=== PATIENT | male | born 1945 | race Caucasian/White ===

== ENCOUNTER 2021-12-06 08:08 | Day surgery (SDC) | payer MEDICARE, SELFPAY ==
--- NOTE | 2021-12-02 09:05 | EKG12_ITS ---
Test Reason : PREOP Blood Pressure : / mmHG Vent. Rate : 155 BPM Atrial Rate : 138 BPM P-R Int : 000 ms QRS Dur : 088 ms QT Int : 322 ms P-R-T Axes : 000 045 -73 degrees QTc Int : 517 ms Atrial fibrillation with premature ventricular or aberrantly conducted complexes Nonspecific T wave abnormality Abnormal ECG Confirmed by LINDA LANDERS, KANWAL ([id number]), fan mail editor LUIS ANTONIO MENENDEZ ([id number]) on 12/02/2021 9:38:42 AM Referred By: Iván Greene Confirmed By:KANWAL MCKEON MD
[2021-12-02 10:12] LABS: Hematocrit 43.8 % (40-54); Mean Corp Hgb Conc 34.2 g/dL (32-36); Mean Corpuscular Hgb 33.6 pg (27.0-32.0); Mean Corpuscular Volume 98.2 fL (80-94); Mean Platelet Vol. 11.4 fl (6.2-12.0); Platelet Count 215 K/mm3 (150-450); RBC Distribution Width CV 13.2 % (11.6-14.6); RBC Distribution Width SD 48.2 fl (35.1-43.9); Red Blood Count 4.46 M/mm3 (4.6-6.2); White Blood Count 6.1 K/mm3 (4.4-11.0)
[2021-12-02 11:05] LABS: International Normalized Ratio 1.3; Prothrombin Time (Protime)PT. 15.6 SECONDS (11.7-14.9)
[2021-12-02 11:06] LABS: Partial Thromboplast Time 34.7 Seconds (24.1-36.2)
[2021-12-02 11:25] LABS: AST(SGOT) 28 U/L (15-37); Alanine Aminotransfer ALT/SGPT 20 U/L (16-61); Albumin, Serum 2.7 g/dL (3.2-5.0); Alkaline Phosphatase 76 U/L (45-117); Bilirubin, Direct 0.27 mg/dL (0.00-0.30); Globulin 3.5 g/dL (2.2-4.2); Protein, Total 6.2 g/dL (6.4-8.2)
[2021-12-02 11:27] LABS: Anion Gap 7 (5-15); BUN 18 mg/dL (7-18); Calcium,Total 8.7 mg/dL (8.5-10.1); Chloride 105 mmol/L (98-107); Creatinine, Serum 0.78 mg/dL (0.70-1.30); EST Glomerular Filtration Rate 103 mL/min (>60); Est Glom Filt Rate - Afr Amer 125 mL/min (>60); Glucose 112 mg/dL (74-106); Potassium 4.1 mmol/L (3.5-5.1); Sodium Level 139 mmol/L (136-145)
[2021-12-06] VITALS (10 sets, daily range): BP systolic 96–127; BP diastolic 57–99; PULSE 51–153; RESP 12–18; TEMP 36.1–36.8; O2SAT 92–99; BMI 27.0
[2021-12-06] MEDS: Lactated Ringers 1,000 ML 15 ML IV (08:25)
--- NOTE | 2021-12-06 08:27 | PCM.HP.BLA ---
History and Physical Date of Admission: 12/06/21 Visit Reasons:?R INGUINAL HERNIA Chief Complaint: Right Inguinal Hernia Facility Manager Histology Required: No Is patient in pain?: No Allergies amiodarone Allergy (Verified 11/01/21 13:08) Dizzinessapixaban [From Eliquis] Allergy (Verified 11/01/21 13:08) flu-like symptomscarvedilol Allergy (Verified 11/01/21 13:08) sluggish/hazydigoxin Allergy (Verified 11/01/21 13:08) dizzy Medications aspirin 81 mg tablet,delayed release 81 mg PO DAILY 11/01/21 [History Confirmed 11/01/21] betamethasone dipropionate 0.05 % topical cream 1 applic topical BID PRN 11/01/21 [History Confirmed 11/01/21] furosemide 40 mg tablet 40 mg PO DAILY 11/01/21 [History Confirmed 11/01/21] hydrochlorothiazide 25 mg tablet 12.5 mg PO DAILY 11/01/21 [History Confirmed 11/01/21] lisinopril 20 mg tablet 20 mg PO BID 11/01/21 [History Confirmed 11/01/21] melatonin 3 mg capsule 3 mg PO HS PRN 11/01/21 [History Confirmed 11/01/21] potassium chloride 20 mEq tablet,extended release 20 meq PO DAILY 11/01/21 [History Confirmed 11/01/21] PFSH Family History?(Updated 11/01/21 @ 13:03 by Alexus Thursday) Father Heart disease Hypertension Social History?(Updated 11/01/21 @ 13:04 by Alexus Thursday) Smoking Status:? Never smoker alcohol intake:? never substance use type:? does not use HPI HPI HPI: 76-year-old gentleman referred by Dr. Dario Jackson for surgical consultation regarding a right inguinal hernia and a written copy my surgical consult and recommendations will be returned to him.? Reviewing the referral note it makes comment that the patient does have chronic atrial fibrillation but declines anticoagulant.? He is on a low-dose aspirin 81 mg daily.? He claims he is able to climb a flight of stairs.? He has had this radial hernia for at least 4 years.? He states it is very large but fortunately he is still able to reduce multiple loops of bowel.? He denies any evidence of bowel obstruction.? He intentionally lost approximately 60 pounds in weight.? He has been able to come off of many of his medications. ROS General General: Yes weight change and fatigue; No appetite, colon cancer, breast cancer or weakness Additional Details: loss HEENT HEENT: No difficulty swallowing, eye injury, eye surgery, swollen glands or hoarseness Endo Endocrine: No thyroid disease, diabetes mellitus, thyroid cancer, Hair loss, heat intolerance or cold intolerance Skin Skin: No rash or changing moles Musc Musculoskeletal: No back problems, arthritis, rheumatoid arthritis, gout or joint pain Cardio Cardiovascular: Yes heart disease, atrial fibrillation and high blood pressure; No murmur, pacemaker, heart attack, heart stent, palpitations, shortness of breat with exertion or chest pain Psych Psychiatric: No depression, anxiety or hearing voices Resp Respiratory: No shortness of breath, Yes sleep apnea, No cough, No COPD, No asthma, No emphysema and No wheezing Gastro Gastrointestinal: No abdominal pain, No nausea or vomiting, No diarrhea, No constipation, No blood in stool, No acid reflux, No hemorrhoids, No ulcers, No gallbladder problem and No black,tarry stools Emmett Hematologic: No blood thinners, No blood disorders, No bleeding, No anemia and No blood clots Additional Details: baby ASA Neuro Neurologic: No system reviewed and no additional complaints, except as documented, No as per HPI, No abnormal gait, No abnormal hearing, No abnormal movements, No abnormal speech, No behavioral changes, No burning sensations, No confusion, No convulsions, No disequilibrium, No dizziness, No localized weakness, No frequent falls, No headache(s), No lack of coordination, No loss of vision, No memory loss, No numbness, No other visual disturbances, No radicular pain, No restless legs, No sensory deficit, No syncope, No tingling, No tremor(s), No weakness and No other Exam Const General: cooperative, healthy appearing, comfortable and no acute distress Orientation: alert [facility] Head: normal to inspection Eyes General: appearance normal, both eyes and all related structures Neck Neck: normal visual inspection Chest Chest palpation & inspection: normal inspection of the chest Resp Effort & Inspection: normal respiratory effort Auscultation: clear to auscultation bilaterally Cardio Rate: regular rate Rhythm: regular rhythm GI Inspection: normal to inspection Auscultation: normal bowel sounds Other: Very large right scrotal inguinal hernia with multiple loops of bowel.? Testicles are descended.? I am able to reduce multiple loops of small bowel in the right however there is an extraordinarily large remaining hernia sac. Skin General: no rashes or lesions noted Neuro General: patient alert and patient awake Extrem General: normal to inspection Other: 1+ bilateral extremity edema.? Nontender Psych Appearance: grossly normal Assessment and Plan Assessment and Plan (1) Inguinal hernia of right side without obstruction or gangrene: ?Status:?Acute ?Plan: 76-year-old gentleman.? He has a very large right scrotal inguinal hernia.? Just in speaking with him he he does demonstrate his age of 76.? A little bit stiff in getting to the exam table.? Some very mild dyspnea although his lungs are clear.? The atrial fibrillation is noted.? The patient is very specific however as to how he wants to be treated.? He has not had a vaccination since the .? He feels like being off of many of the medications that he previously on is actually more healthy for him. I propose for him a right inguinal herniorrhaphy with mesh.? I have cautioned him that if need be I might have to perform a concomitant right orchiectomy due to the size of this hernia.? I discussed the technique, benefit, risk, alternatives.? He is aware there is no guarantees of success.? I have asked him to bring in compression garments.? He is aware that anticipating some postoperative ecchymosis and swelling.? I have already encouraged him that he will need to utilize postoperative ice and compression for comfort.? We will have him hold his aspirin just 1 day ahead of time.? He has had an opportunity to ask and have questions answered.? I very much appreciate the kind opportunity of assisting with the surgical care.? I am hoping that we will be able to pursue this with monitored anesthesia care and local anesthetic although I recognize that the size of this hernia may require more. Copy: Dr. Dario Greene M.D., F.A.C.S I have re-examined the patient. There are no clinical changes since date of exam. Iván Greene M.D., F.A.C.S.
--- NOTE | 2021-12-06 10:45 | HERN_PTH ---
PATIENT: STACI MC LOC: [facility] [place] U#:[id number] AGE/SX: 76/M ROOM: RE12/06/[address]: Dr. Iván Greene MD : 1945 BED: DIS: 12/06/2021 SPEC #: [id number] RECD: 12/06/21 14:15 STATUS: [facility]ANCO #: [id number] MELQUIADES: 12/06/21 10:[address]: Iván Greene DEPT: SURGICAL PATHOLOGY RECD BY: Gwendolyn Sanches ENTERED: 12/09/21 07:59 SP TYPE: Hernia OTHR DR: Dr. Dario Jackson MD Tissues: HERNIA Procedures: Surgery Specimen Level II HEADER OPERATION: Inguinal hernia with mesh PRE-OP DIAGNOSIS: Inguinal hernia of right side without obstruction or gangrene TISSUE SUBMITTED: Cremaster fibers and hernia sac MICROSCOPIC DIAGNOSIS Cremaster fibers and hernia sac: Fragments of fibroadipose and fibroconnective tissue, consistent with hernia sac with chronic inflammation and reactive changes. Fragments of skeletal muscle tissue, clinically cremaster fibers. BILLY:antoinette 12/10/2021 MICROSCOPIC DESCRIPTION Slides are reviewed. GROSS DESCRIPTION Received in fixative is one container labeled with the patient's name and designated cremaster fibers and hernia sac. The specimen consists of five variable sized pieces of soft tissue measuring in aggregate 11 x 6 x 2 cm. Sections do not reveal any mass lesion. Predatory Hunter sections are submitted in two cassettes. / David 12/09/2021 TC:5 CPT: 20539
[2021-12-06] MEDS: Cefazolin 2 GM in 0.9% Normal Saline 100 ML IV (11:20)
[2021-12-06] MEDS: Lidocaine 1% (30 ml sdv) 30 ML Vial (11:44)
--- NOTE | 2021-12-06 12:58 | PCM.OPRPT ---
Report of Operation Date of Procedure: 12/06/21 Pre-Operative Diagnosis: Large indirect right inguinal hernia Post-Operative Diagnosis: Same Surgery/Procedure Performed:: Pam right inguinal herniorrhaphy Bard mesh preshaped with keyhole 10 x 4.5 cm Lot [id number], reference [id number], expiry date 09/26/2025 Description of Surgical Findings:: Timeout and informed consent was obtained. Patient was taken to the operating room. Ancef 2 g were given intravenously. And went LMA general anesthesia. The scrotum and right groin were sterilely prepped and draped. 1% lidocaine mixed 50-50 with 0.5% Marcaine was used as a local anesthetic. Local was instilled a transverse incision was made in the right groin sharp and blunt dissection was used to identify the cord structures the external bleak was incised anatomy was rather distorted further tedious sharp and blunt section used to identify a very very large hernia sac. This was tediously and carefully dissected free from the scrotum electrocautery was used for hemostasis 3-0 Vicryl ligatures used for hemostasis. Eventually the sac was completely freed from the cord structures hypertrophied and attenuated cremasteric fibers were indicated were either transected or secured. The sac was opened there was no intestinal contents a portion of the very large sac was excised and submitted the remainder was then closed with a running suture of 3-0 Vicryl and a double suture technique. The sac was then allowed to invert. Dissection was performed so that the aponeurosis of the internal/external oblique the shelving edge of Poupart's pubic tubercle all identified. Starting at the pubic tubercle the remnants of the transversalis fascia were approximated to itself using a running 3-0 Ethibond to the internal ring. Then the keyhole mesh was placed overlying the mesh was carefully meticulously secured to the pubic tubercle shelving edge of Poupart's aponeurosis of the internal and external bleak. It was secured to itself laterally and the tails were secured placed subfascially laterally as well. Great care was taken to try to identify the ilioinguinal nerve which was resected. Vascular supply to the testicle was left intact. Orchiectomy was not performed today. External oblique was reapproximated with a couple simple sutures of 3-0 Vicryl. Subdermal tissues approximated with the same. Skin edges approximated running subicular 4 Monocryl. Steri-Strips Telfa OpSite dressings applied. Sponge and instrument and needle counts were reported to the surgeon to be correct. Specimen hernia sac and attenuated cremasterics fibers. Drains none. Blood loss minimal. The patient was taken to the recovery room in satisfactory addition without apparent complication Iván Greene M.D., F.A.C.S. Surgeon: Iván Greene Type of Anesthesia: General and Local Anesthesiologist: Sohail Patel
[2021-12-06] MEDS: HYDROcodone Bitartrate/Apap 5/325 Tablet PO (15:58)
--- NOTE | 2021-12-06 16:49 | DCINST_ITS ---
Discharge Instructions Procedure General Surgery Diet Discharge Diet: Light diet - advance as tolerated (if you have questions about your diet instructions, please talk to you doctor.) Activity Discharge Activity: May Not Drive (for 3-5 days or while taking narcotic pain medicine.) May shower in (days): 1 Lifting Restrictions: 10 pounds Dressing / Incision Call your doctor if your incision/area has: Continuous Slow Oozing, Sudden Increased Bleeding, Increased Pain/ Swelling, Increased Redness and Foul Smelling Discharge Call your doctor if you observe: Fever of 101 or Higher Suture Line Care: Avoid Pulling/Pushing and Avoid Pinching/Bending Additional Dressing/Incision Instructions:: Change or remove dressing in 4 days. Leave steri-strips in place for 1 week. Follow Up Care Please Follow Up With: Iván Greene MD When: Call [phone] to make an appointment to be seen in about 10 days. Test Results: Test results from this visit will be discussed in further detail at your follow- up appointment, if applicable. Discharge Plan Admission Primary Reason for Your Visit: Right inguinal hernia Attending Provider: Iván Greene Primary Care Provider: Dario Jackson Discharge Orders/Prescriptions Prescriptions: New hydrocodone-acetaminophen 5-325 mg tablet 1 tab PO Q8H PRN (Reason: pain) 3 Days Qty: 8 0RF Continued furosemide 40 mg tablet 40 mg PO DAILY potassium chloride 20 mEq tablet extended release 20 meq PO DAILY aspirin 81 mg tablet,delayed release (DR/EC) 81 mg PO DAILY Label Comments: PT WILL STOP ASPIRIN 12/05/21 FOR SURGERY ON 12/06/21 Referrals / Follow Up: Dario Jackson MD [Primary Care Provider] - Disposition Disposition (needs filled in before D/C Order can be placed): Home, Self Care
[2021-12-06] MEDS: Furosemide 20 MG/2 ML VIAL IV (17:10)
== END 2021-12-06 18:45 | disposition home or self-care (01) ==
LOC: SDC 08:13 → AC 08:15
PROVIDERS: Anesthesiology; PCP Family Medicine; Referring Provider Surgery; Visit Provider Surgery
PROC: (CPT 49505; principal; 2021-12-06 10:30)
DX: K40.90 Unilateral inguinal hernia, without obstruction or gangrene, not specified as recurrent (principal); I48.20 Chronic atrial fibrillation, unspecified; I11.9 Hypertensive heart disease without heart failure; Z79.82 Long term (current) use of aspirin; Z79.899 Other long term (current) drug therapy
CPT/HCPCS: 49505; 36415; 80048; 80076; 85027; 85610; 85730; 88302; 93005; J7120; C1781; J1940; J2405

== ENCOUNTER 2023-04-08 22:44 | Inpatient (IN) | payer MEDICARE, SELFPAY ==
[2023-04-08 22:45] VITALS: TEMP 36.6; BMI 23.6
[2023-04-09] VITALS (21 sets, daily range): BP systolic 86–268; BP diastolic 60–211; PULSE 114–160; RESP 14–30; TEMP 36.2–36.4; O2SAT 89–96; BMI 23.6
--- OUTSIDE RECORDS SUMMARY | 2023-04-09 00:19 | XMS RPT_ITS | CCD ---
Author Name Unknown Address [address] [facility] [address] [place] [address] Organization [facility] Care Team Providers Care Manager Business Planning Name Role Phone Genia Jackson MD Primary Care Provider [phone] GENIA JACKSON Primary Care Unavailable NICOLE EVANS Attending Unavailable NICOLE EVANS Attending Unavailable GENIA JACKSON Primary Care Unavailable KAILA MURILLO Attending Unavailable KAILA MURILLO Admitting Unavailable GENIA JACKSON Primary Care Unavailable GENIA JACKSON Referring Unavailable GENIA JACKSON Attending Unavailable GENIA JACKSON Primary Care Unavailable GENIA JACKSON Primary Care Unavailable CHASE FUENTES Referring Unavailable Allergies Allergy Classification Reported Allergen(s) Allergy Type Date of Onset Reaction(s) Facility (6 sources) Spironolactone Drug Allergy 7 [facility] (5 sources) Amiodarone Drug Allergy 7 Dizziness [facility] (5 sources) apixaban Drug Allergy 2 [facility] (5 sources) carvedilol Drug Allergy 2 [facility] (5 sources) Digoxin And Related Drug Intolerance 2 [facility] Medications Current Medications Medication Drug Class(es) Dates Sig (Normalized) Sig (Original) aspirin 81 mg delayed release oral tablet (9 sources) Platelet Aggregation Inhibitor, Nonsteroidal Anti-inflammatory Drug Start: 11-01-2021 aspirin 81 MG EC tablet Take 81 mg by mouth. 0 11/01/2021 Active ciprofloxacin 250 mg oral tablet (1 source) Quinolone Antimicrobial Start: 08-12-2022 End: 08-22-2022 take 1 tablet by mouth twice daily ciprofloxacin (Cipro) 250 MG tablet Take 1 tablet (250 mg) by mouth 2 times daily for 10 days. 20 tablet 0 08/12/2022 08/22/2022 Active furosemide 40 mg oral tablet (9 sources) Loop Diuretic Start: 05-23-2021 furosemide (Lasix) 40 MG tablet Take 40 mg by mouth. 0 05/23/2021 Active spironolactone 50 mg oral tablet (9 sources) Aldosterone Antagonist Start: 06-18-2022 take 1 tablet by mouth once daily spironolactone (Aldactone) 50 MG tablet Take 50 mg by mouth daily. 0 06/18/2022 Active traZODone hydrochloride 50 mg oral tablet (9 sources) Serotonin Reuptake Inhibitor Start: 06-18-2022 take 1 tablet by mouth once daily traZODone (Desyrel) 50 MG tablet Take 50 mg by mouth Nightly. 0 06/18/2022 Active Completed/Discontinued Medications Medication Drug Class(es) Dates Sig (Normalized) Sig (Original) cephalexin 500 mg oral capsule (6 sources) Cephalosporin Antibacterial Start: 07-31-2022 End: 09-16-2022 take 1 capsule by mouth four times daily cephalexin (Keflex) 500 MG capsule Take 500 mg by mouth 4 times daily. 0 07/31/2022 09/16/2022 Discontinued 5 ml dilTIAZem hydrochloride 5 mg/ml injection (2 sources) Calcium Channel Xin Start: 09-16-2022 End: 09-16-2022 dilTIAZem (Cardizem) injection 10 mg dilTIAZem (Cardizem) infusion 125 mg in 0.9% sodium chloride 125 mL (premix) (2 sources) Start: 09-16-2022 End: 09-16-2022 dilTIAZem (Cardizem) infusion 125 mg in 0.9% sodium chloride 125 mL (premix) 50 ml sodium chloride 9 mg/ml injection (2 sources) Start: 09-16-2022 End: 09-16-2022 sodium chloride 0.9 % bolus 500 mL Problems Problem Classification Problem Date Documented Da te Episodic/Chronic Cardiac dysrhythmias (11 sources) Atrial fibrillation with rapid ventricular response; Translations: [Unspecified atrial fibrillation] Onset: 09-16-2022 09-16-2022 Chronic Chronic ulcer of skin (14 sources) Non-pressure chronic ulcer of other part of left lower leg with fat layer exposed; Translations: [Ulcer of other part of lower limb] Onset: 08-05-2022 08-05-2022 Chronic Open wounds of extremities (4 sources) Open wound of lower limb; Translations: [Unspecified open wound, unspecified lower leg, initial encounter] Onset: 09-16-2022 09-16-2022 Episodic Other connective tissue disease (4 sources) Pain of right lower leg; Translations: [Pain in right lower leg] 08-05-2022 Episodic Other connective tissue disease (4 sources) Pain of left lower leg; Translations: [Pain in left lower leg] 08-05-2022 Episodic Other connective tissue disease (2 sources) Pain in right lower leg; Translations: [Pain in right lower leg] Onset: 08-05-2022 Episodic Other connective tissue disease (2 sources) Pain in left lower leg; Translations: [Pain in left lower leg] Onset: 08-05-2022 Episodic Other diseases of veins and lymphatics (4 sources) Lymphedema; Translations: [Lymphedema, not elsewhere classified] 08-05-2022 Chronic Other diseases of veins and lymphatics (2 sources) Lymphedema, not elsewhere classified; Translations: [Lymphedema, not elsewhere classified] Onset: 08-05-2022 Chronic Other diseases of veins and lymphatics (4 sources) Vascular insufficiency; Translations: [Venous insufficiency (chronic) (peripheral)] 08-05-2022 Episodic Other diseases of veins and lymphatics (3 sources) Peripheral venous insufficiency; Translations: [Venous insufficiency (chronic) (peripheral)] Onset: 08-05-2022 09-16-2022 Episodic Other diseases of veins and lymphatics (1 source) Venous insufficiency (chronic) (peripheral); Translations: [Venous insufficiency (chronic) (peripheral)] Onset: 08-05-2022 Episodic Other injuries and conditions due to external causes (2 sources) Closed injury of head; Translations: [Unspecified injury of head, initial encounter] 09-16-2022 Episodic Other injuries and conditions due to external causes (2 sources) Unspecified injury of head, initial encounter; Translations: [Unspecified injury of head, initial encounter] Onset: 09-16-2022 Episodic Peripheral and visceral atherosclerosis (6 sources) Peripheral vascular disease; Translations: [Peripheral vascular disease, unspecified] Onset: 08-05-2022 08-05-2022 Chronic Residual codes; unclassified (4 sources) Edema of lower extremity; Translations: [Localized edema] 08-05-2022 Episodic Residual codes; unclassified (2 sources) Localized edema; Translations: [Localized edema] Onset: 08-05-2022 Episodic Results Test Name Value Interpretation Reference Range Facil ity Vital Signs Date Time Vital Sign Value Performing Clinician Jorge Alberto enciso 09-16-2022 15:13-0400 Diastolic blood pressure 86 mm[Hg] Vineet Chen MD Work Phone: [facility] [employer] 09-16-2022 15:13-0400 Heart rate 123 /min Vineet Chen MD Work Phone: [facility] [employer] 09-16-2022 15:13-0400 Respiratory rate 18 /min Vineet Chen MD Work Phone: [facility] [employer] 09-16-2022 15:13-0400 SaO2% (BldA) [Mass fraction] 100 % Vineet Chen MD Work Phone: [facility] [employer] 09-16-2022 15:13-0400 Systolic blood pressure 108 mm[Hg] Vineet pearl MD Work Phone: [facility] [employer] 09-16-2022 12:37-0400 Body height 185.4 cm Vineet Chen MD Work Phone: [facility] [employer] 09-16-2022 12:37-0400 Body mass index (BMI) [Ratio] 23.09 kg/m2 Vineet Chen MD Work Phone: [facility] [employer] 09-16-2022 12:37-0400 Body weight 79.38 kg Vineet Chen MD Work Phone: [facility] 09-16-2022 12:33-0400 Body temperature 97.5 [degF] Vineet Chen MD Work Phone: [facility] 08-12-2022 13:59-0400 Body temperature 97 [degF] Nicole Evans DPM Work Phone: [facility] 08-12-2022 13:59-0400 Diastolic blood pressure 70 mm[Hg] Nicole Evans DPM Work Phone: [facility] 08-12-2022 13:59-0400 Heart rate 82 /min Nicole Evans DPM Work Phone: [facility] [employer] 08-12-2022 13:59-0400 Respiratory rate 17 /min Nicole Evans DPM Work Phone: [facility] 08-12-2022 13:59-0400 Systolic blood pressure 102 mm[Hg] Nicole Evans DPM Work Phone: [facility] 08-05-2022 13:46-0400 Diastolic blood pressure 42 mm[Hg] Nicole Evans DPM Work Phone: [facility] 08-05-2022 13:46-0400 Heart rate 144 /min Nicole Evans DPM Work Phone: [facility] 08-05-2022 13:46-0400 Systolic blood pressure 76 mm[Hg] Nicole Tirso DPM Work Phone: [facility] 08-05-2022 13:33-0400 Body temperature 97 [degF] Nicole Evans DPM Work Phone: [facility] Encounters Encounter Date Encounter Type Care Provider Facility Start: 09-16-2022 End: 09-16-2022 Evaluation and management of inpatient KAILA MURILLO [facility] Start: 09-16-2022 End: 09-16-2022 Emergency department patient visit [facility] Start: 09-16-2022 End: 09-16-2022 ambulatory [facility] Start: 09-16-2022 End: 09-16-2022 Evaluation and management of inpatient Vineet Chen MD Work Phone: [facility] ED Procedures Date Procedure Procedure Detail Performing Clinician Start: 09-16-2022 Ct cervical spine w/ o contrast material Vineet Chen MD Work Phone: Start: 09-16-2022 Ct head/brain w/o co ntrast material Vineet Chen MD Work Phone: Start: 09-16-2022 Radiologic exam ches t single view Vineet Chen MD Work Phone: Start: 09-16-2022 Basic metabolic pane l calcium total Vineet Chen MD Work Phone: Start: 09-16-2022 C-reactive protein Jaya Chen MD Work Phone: Start: 09-16-2022 Ecg routine ecg w/le ast 12 lds trcg only w/o i&r Vineet Chen MD Work Phone: Start: 09-16-2022 Non-invasive physiol ogic study extremity 3 malena Jackson MD Work Phone: Start: 08-12-2022 Debridement subcutan eous tissue 20 sq cm/< Nicole Evans DPM Work Phone: Start: 08-05-2022 Cul bact xcpt urine blood/stool aerobic isol Nicole Evans DPM Work Phone: Start: 08-05-2022 Debridement subcutan eous tissue 20 sq cm/< Nicole Evans DPM Work Phone: Plan of Treatment Date Care Activity Detail Author Start: 10-31-2022 Influenza vaccination [facility] Start: 08-19-2022 End: 08-19-2022 Patient encounter procedure 08/19/2022 1:30 PM EDT Appointment [facility] [address] [place] [address] Nicole Evans DPM [address] [place] [address] [facility] Start: 08-18-2022 End: 08-18-2022 Patient encounter procedure [facility] Start: 08-12-2022 End: 08-12-2022 Patient encounter procedure 08/12/2022 1:15 PM EDT Appointment [facility] [address] [place] [phone] Nicole Evans DPM [address] [place] [address] [facility] Start: 2012 Pneumococcal Vaccine: 65+ Years (1 - PCV) Pneumococcal Vaccine: 65+ Years (1 - PCV) [facility] Start: 1997 Zoster Vaccines (1 of 2) Zoster Vaccines (1 of 2) [facility] Start: 1966 DTaP/Tdap/Td Vaccines (1 - Tdap) DTaP/Tdap/Td Vaccines (1 - Tdap) [facility] Start: 1965 Diabetes mellitus screening Diabetes Screening [facility] Start: 1965 Hepatitis C screening Hepatitis C Screening [facility] Start: 1959 Depression Screening Depression Screening [facility] Start: 1954 DTaP/Tdap/Td Vaccines (1 - Tdap) DTaP/Tdap/Td Vaccines (1 - Tdap) [facility] Start: 1947 COVID-19 Vaccine (#1) COVID-19 Vaccine (#1) [facility] Start: 1945 Lipid panel Lipid Panel [facility] Start: 1945 Medicare Advantage Annual Wellness Visit (AWV) Medicare Advantage Annual Wellness Visit (AWV) [facility] Start: 1945 Screening for malignant neoplasm of colon [facility] Aerobic and Anaerobi c Culture with Stain Aerobic and Anaerobic Culture with Stain Microbiology Routine Peripheral vascular disease, unspecified (HCC) Venous insufficiency Leg edema 08/05/2022 2:25 PM EDT [facility] Bacteria identified in Unspecified specimen by Aerobe culture Culture, Aerobic Bacteria with Gram Stain Microbiology Routine Peripheral vascular disease, unspecified (HCC) Venous insufficiency Leg edema 08/05/2022 2:25 PM EDT [facility] Bacteria identified in Unspecified specimen by Anaerobe culture Anaerobic culture Microbiology Routine Peripheral vascular disease, unspecified (HCC) Venous insufficiency Leg edema 08/05/2022 2:25 PM EDT [facility] Dressing Order: Adap tic, Calcium alginate; Every other day; 4x4 gauze; Kerlex, Silk tape; Single layer tubigrip Dressing Order: Adaptic, Calcium alginate; Every other day; 4x4 gauze; Kerlex, Silk tape; Single layer tubigrip Wound Ostomy Routine Ordered: 08/05/2022 [facility] Work Phone: Immunizations Immunization Date Immunization Notes Care Provider Fa laceyty NEGATED: Highlighted row has not occurred!09-16-2022 tetanus toxoid, reduced diphtheria toxoid, and acellular pertussis vaccine, adsorbed Vineet Chen MD Work Phone: [facility] Payers Date Payer Category Payer Medicare [employer] MEDICARE ADVANTAGE [employer] MEDICARE [id number] 2022-Present [address] [address] [place] [address] Medicare HMO [id number] 2022 Medicare [id number] Social History Date Type Detail Facility Tobacco smoking status NHIS Never smoked tobacco [facility] Start: 08-05-2022 End: 08-12-2022 Alcohol intake Current non-drinker of alcohol (finding) [facility] Start: 08-05-2022 End: 08-12-2022 History of Social function [facility] Start: 08-05-2022 End: 08-12-2022 Tobacco use panel [facility] Start: 1945 Sex Assigned At Not on file S [facility] Start: 08-05-2022 Gender identity Identifies as male gender (finding) [facility] Start: 07-26-2022 End: 09-16-2022 Exposure to SARS-CoV-2 (event) Not sure [facility] How often to you hav e a drink containing alcohol? Never [facility] How many standard dr inks containing alcohol do you have on a typical day? Patient does not drink [facility] Clinical Notes 08-05-2022 to 09-16-2022 Manuel Morales RN - 09/16/2022 4:02 PM Xin Morales RN - 09/16/2022 4:02 PM Natalie Chen MD - 09/16/2022 12:29 PM Xin Morales RN - 09/16/2022 12:29 PM EDT Note Date & Type Note Facility 09-16-2022 Emergency departm ent Note Provider explained risk of leaving AMA, patient signed paper work for AMA, patient advised he may return any time for further eval and treatment Manuel Morales RN 09/16/22 1604 [facility] 09-16-2022 Emergency departm ent Note Provider explained risk of leaving AMA, patient signed paper work for AMA, patient advised he may return any time for further eval and treatment Manuel Morales RN 09/16/22 1604 [facility] ED EMERGENCY DEPARTMENT ENCOUNTER Pt Name: Ryan Mc Birthdate 1945 Date of evaluation: 09/16/2022 Provider: Vineet Chen MD CHIEF COMPLAINT Chief Complaint Patient presents with Fall Pt. Was being evaluated in cardiac services and the proceeded to fall when ambulating after his procedure. Pt. Presents alert in triage. Irregular heart rate. Known head injury with head trauma and takes daily aspirin. Pupils PEARRL in triage (3mm). HISTORY OF PRESENT ILLNESS I wore proper PPE for the entirety of this encounter. Ryan Mc is a 77 y.o. male who presents to the emergency department after a mechanical fall with head trauma. Patient notes that he has a history of atrial fibrillation but no longer takes anticoagulation. He says he does take a baby aspirin daily. He had head trauma on his frontal scalp but did not lose consciousness. He denies pain anywhere. Patient notes he was going to the doctors this morning to be seen for his bilateral lower extremity edema and wounds. He was noted to have a fast heart rate when he was brought to room 20. Patient says that he does not any chest pain or palpitations and does not feel lightheaded or dizzy. He notes that his heart rate is usually fast. Nursing Notes were reviewed. Limitations to history: None Outside historians: None REVIEW OF SYSTEMS (2+ for level 4; 10+ for level 5) Constitutional: as noted in HPI, and negative for fever/chills Eyes: as noted in HPI, and negative for vision changes ENT: as noted in HPI, and negative for cough CV: as noted in HPI, and negative for chest pain, negative for palpitations Resp: as noted in HPI, and negative for shortness of breath GI: as noted in HPI, and negative for abd pain, negative for n/v/d : as noted in HPI, and negative for urinary symptoms MSK: as noted in HPI, and negative for muscle pain Skin: as noted in HPI, and negative for rash Neuro: as noted in HPI, and negative for headaches, negative for acute focal weakness/numbness PAST MEDICAL HISTORY Past Medical History: Diagnosis Date Atrial fibrillation (CMS/HCC) (HCC) Hypertension Obesity SURGICAL HISTORY Past Surgical History: Procedure Laterality Date CAPSULOTOMY, HAND 07/2013 HERNIA REPAIR CURRENT MEDICATIONS Previous Medications ASPIRIN 81 MG EC TABLET Take 81 mg by mouth. FUROSEMIDE (LASIX) 40 MG TABLET Take 40 mg by mouth. SPIRONOLACTONE (ALDACTONE) 50 MG TABLET Take 50 mg by mouth daily. TRAZODONE (DESYREL) 50 MG TABLET Take 50 mg by mouth Nightly. ALLERGIES Amiodarone, Apixaban, Carvedilol, Digoxin and related, and Spironolactone FAMILY HISTORY Family History Problem Relation Name Age of Onset Heart attack Father SOCIAL HISTORY Social History Socioeconomic History Marital status: Tobacco Use Smoking status: Never Smokeless tobacco: Never Substance and Sexual Activity Alcohol use: No Drug use: No SCREENINGS PHYSICAL EXAM (up to 7 for level 4, 8 or more for level 5) ED Triage Vitals [09/16/22 1233] Temp Heart Rate Resp BP 36.4 C (97.5 F) 61 16 115/80 SpO2 Temp Source Heart Rate Source Patient Position 100 % Temporal Monitor -- BP Location FiO2 (%) -- -- Constitutional: No acute distress HEENT:Head: Frontal scalp skin tear Eyes: Conjunctivae normal. PERRLA, EOMI ENT: Mucous membranes moist. Normal oropharynx Neck: No C-spine tenderness, normal ROM, supple CV: Tachycardic, irregular RESP: CTAB, good respiratory effort, no increased wob GI: Abdomen soft, non-tender, non-distended, +BS, no guarding or rebound tenderness MSK: Normal bulk and tone, no gross deformity. No tenderness of the shoulders/arms, hands/wrists, chest wall, hips, knees, ankles/feet. Pelvis is stable. EXTR: Warm and well perfused, 2+ pitting bilateral lower extremity edema with associated erythema and mild warmth and scattered wounds to the soft tissue with no discharge SKIN: Erythema of the bilateral lower extremities PSYCH: Appropriate affect, cooperative behavior NEURO: Alert and oriented x 3, face symmetric, no slurred speech, CN2-12 intact, motor and sensory intact and equal bilaterally. DIAGNOSTIC RESULTS Procedures/EKG: EKG was reviewed by myself. Physician EKG interpretation can be found in [facility] RADIOLOGY (Per Emergency Physician): Interpretation per the Radiologist below, if available at the time of this note: CT cervical spine wo IV contrast Final Result No acute cervical spine fracture. Multilevel cervical spondylosis. Bilateral pleural effusions, incompletely imaged. Report Dictated on Electronically Signed By: Jessica Garcia MD Electronically Signed Date/Time: 09/16/2022 3:[address] head wo IV contrast Final Result No acute intracranial abnormality. Diffuse cortical volume loss and chronic small vessel ischemic changes. Report Dictated on Electronically Signed By: Jessica Garcia MD Electronically Signed Date/Time: 09/16/2022 3:01 PM EDT XR chest 1 view Final Result FINDINGS AND IMPRESSION: SUPPORT DEVICES: EKG leads OSSEOUS STRUCTURES: Unremarkable. HEART AND MEDIASTINUM: The cardiomediastinal silhouette appears unchanged from the prior exam. LUNGS AND PLEURA: There is pulmonary venous congestion and interstitial edema. Right basilar airspace opacities are present, alveolar edema versus infection. Recommend follow-up imaging in 3-4 weeks to document resolution and exclude any underlying lesions. Small bilateral pleural effusions. Report Dictated on Electronically Signed By: Emile Mcintyre MD Electronically Signed Date/Time: 09/16/2022 2:07 PM EDT LABS: Labs Reviewed BASIC METABOLIC PANEL - Abnormal Result Value SODIUM 129 (*) POTASSIUM 4.4 CHLORIDE 98 CARBON DIOXIDE 32 (*) UREA NITROGEN 20 CREATININE 0.66 GLUCOSE 100 CALCIUM 8.2 (*) ANION GAP 0 (*) eGFR >90.0 CBC WITH AUTO DIFFERENTIAL - Abnormal Auto WBC 6.0 RBC 4.61 Hemoglobin 15.2 Hematocrit 45.4 MCV 98.6 (*) MCH 33.1 MCHC 33.5 RDW 14.0 Platelets 211 MPV 10.1 nRBC 0.0 Neutrophils Relative 71.5 Lymphocytes Relative 19.5 (*) Monocytes Relative 7.5 Eosinophils Relative 1.2 Basophils Relative 0.3 Neutrophils Absolute 4.3 Lymphocytes Absolute 1.2 Monocytes Absolute 0.4 Eosinophils Absolute 0.1 Basophils Absolute 0.0 NT PRO BNP - Abnormal NT PRO BNP 9,300 (*) SEDIMENTATION RATE, AUTOMATED - Abnormal Sed Rate 38 (*) TROPONIN I - Normal TROPONIN I 0.014 Narrative: Patients with high levels of Biotin oral intake (ie >5 mg/day) may have falsely decreased Troponin levels. MAGNESIUM - Normal MAGNESIUM 2.0 C-REACTIVE PROTEIN - Normal C REACTIVE PROTEIN 6.9 LACTIC ACID, SEPSIS WITH REFLEX IF ELEVATED - Normal LACTIC ACID 0.9 EMERGENCY DEPARTMENT COURSE and DIFFERENTIAL DIAGNOSIS/MDM: Vitals: Vitals: 09/16/22 1237 09/16/22 1433 09/16/22 1441 09/16/22 1513 BP: 103/69 112/82 108/86 BP Location: Left arm Patient Position: Lying Pulse: (!) 124 (!) 120 (!) 123 Resp: 22 18 Temp: TempSrc: SpO2: 100% Weight: 79.4 kg (175 lb) Height: 1.854 m (6' 1 ) Medications Tdap (BoostRIX) vaccine 0.5 mL (0.5 mL IntraMUSCular Not Given 09/16/22 1315) dilTIAZem (Cardizem) infusion 125 mg in 0.9% sodium chloride 125 mL (premix) (5 mg/hr IntraVENous New Bag 09/16/22 1512) sodium chloride 0.9 % bolus 500 mL (0 mL IntraVENous Stopped 09/16/22 1419) dilTIAZem (Cardizem) injection 10 mg (10 mg IntraVENous Given 09/16/22 1336) I personally saw the patient and performed a substantive portion of the visit including all aspects of the medical decision making. Patient appears nontoxic. He has a skin tear on his head in the fall and also a skin tear in his left knee. Knee is nontender. Patient is tachycardic and appears to be in atrial fibrillation on his EKG. His heart rate is in the 140s to 160s. Initially he was normotensive but now his blood pressure is drifting down. Unclear exactly how long he has been in atrial fibrillation and he is no longer on anticoagulation so I do not believe it is safe currently to cardiovert him. His last documented ejection fraction was 51% in 2013 per care everywhere. ED Course as of 09/16/22 1547 Tue Sep 16, 2022 1328 CBC auto differential(!) Overall normal including no leukocytosis and normal hemoglobin [JACKSON] 1335 Blood pressure is improved as the IV fluid bolus is nearing completion. Considered ordering metoprolol IV given the patient had an ejection fraction of 51% in 2013 and may have heart failure now however the patient has a documented allergy to carvedilol. Thus I ordered a Cardizem 10 mg IV bolus. [JACKSON] 1336 ESR, POC(!): 38 Mildly elevated [JACKSON] 1344 Basic metabolic panel(!) Mild hyponatremia with a sodium of 129 [JACKSON] 1345 C REACTIVE PROTEIN: 6.9 Normal [JACKSON] 1345 MAGNESIUM: 2.0 Normal [JACKSON] 1357 NT PRO BNP(!): 9,300 Significantly elevated. No prior. [JACKSON] 1357 LACTIC ACID: 0.9 Normal [JACKSON] 1357 TROPONIN I: 0.014 Within normal limits, but detectable level [JACKSON] 1411 XR chest 1 view LUNGS AND PLEURA: There is pulmonary venous congestion and interstitial edema. Right basilar airspace opacities are present, alveolar edema versus infection. Recommend follow-up imaging in 3-4 weeks to document resolution and exclude any underlying lesions. Small bilateral pleural effusions. [JACKSON] 1411 Chest x-ray radiologist final interpretation concerning for edema versus pneumonia. I think pneumonia is less likely given the patient has no leukocytosis, no fever, no cough [JACKSON] 1415 Patient heart rate still elevated in the 120s to 140s. Patient was standing and urinating when I reassessed him. I ordered a Cardizem drip. [JACKSON] 1505 CT head wo IV contrast CT head ordered to evaluate for acute bleed, cranial fracture, space occupying lesions is negative for acute bleed, cranial fracture, space occupying lesions on my interpretation. No acute abnormalities on the radiologist's final read. [JACKSON] 1511 CT cervical spine wo IV contrast IMPRESSION: No acute cervical spine fracture. Multilevel cervical spondylosis. Bilateral pleural effusions, incompletely imaged. [JACKSON] [address] Murillo from [facility] over the phone who accept the patient. [JACKSON] 1539 I was advised that the patient wants to leave AGAINST MEDICAL ADVICE. The patient told me that he wants to leave because he does not want to be admitted and does not want further treatment. I told him that he is in atrial fibrillation which is an abnormal rhythm and he has a fast heart rate. I told him that he is in acute heart failure and that this will likely get worse and he will get worsening shortness of breath and leg swelling and he has a very high chance of becoming permanently disabled and dying perhaps in very short order. Patient said that he knows and accepts these risks and still wants to go home. I requested that we trial ambulation with the patient prior to him leaving AMA to make sure he was steady on his feet. [JACKSON] 1546 Pt ambulated with a steady gait. He will leave AMA. [JACKSON] ED Course User Index [JACKSON] Vineet Chen MD Diagnoses as of 09/16/22 1547 Atrial fibrillation with rapid ventricular response (CMS/HCC) (HCC) Closed head injury, initial encounter Open leg wound, unspecified laterality, initial encounter External records reviewed: Outpatient results -echo result from 2013 Diagnostics interpreted by me: As above Discussions with other clinicians: As above Chronic conditions impacting care: Atrial fibrillation CONSULTS: None CRITICAL CARE TIME I personally saw the patient and independently provided 34 minutes of non-concurrent critical care out of the total shared critical care time provided. There was a high probability of clinically significant/life threatening deterioration in the patient's condition which required my urgent intervention. PROCEDURES: Unless otherwise noted below, none Procedures Patients symptoms are consistent with sepsis, severe sepsis, or septic shock (If yes use .sepsiscoremeasure ): no FINAL IMPRESSION 1. Atrial fibrillation with rapid ventricular response (CMS/HCC) (HCC) 2. Closed head injury, initial encounter 3. Open leg wound, unspecified laterality, initial encounter DISPOSITION/PLAN Admit 09/16/2022 03:23:39 PM PATIENT REFERRED TO: No follow-up provider specified. DISCHARGE MEDICATIONS: New Prescriptions No medications on file (Please note: Portions of this note were completed with a voice recognition program. Efforts were made to edit the dictations but occasionally words and phrases are mis-transcribed.) Vineet Chen MD MARIA A Emergency Medicine Physician [facility] Vineet Chen MD 09/16/22 1524 Vineet Chen MD 09/16/22 1547 Arrived via w/c from patient Dr owusu , A/0 x4, GCS 15, able to speak in complete sentences and provide own PMHX, patient hit head after fall, currently on ASA 81 mg daily, placed on monitor, continue to assess documented in this encounter [facility] 09-16-2022 Note Formatting of this n ote might be different from the original. MENTAL HEALTH THERAPIST called at 12:15 for a fall in the hallway outside of cardiac services. Pt states I got a test for the circulation of my legs, when I was leaving I got on the slope of the floor. Pt has multiple abrasions to bilateral hands, with skin tear to the left hand. Abrasions with bleeding to bilateral legs, pt has has multiple scabbed areas to bilateral legs. A small bleeding area to the forehead. Pt denies LOC or neck pain, denies dizziness. VTran resp therapy arrived, pt pulse ox check was done. Room air pulse ox 85%, [id number]. Pt states he has a afib hx and takes ASA daily. Pt at first wanted to leave and refuse tx, discussed head injury and blood thinners, that his pulse ox was low. Pt agreed to go to ER for eval. Pt assisted from floor to wheelchair, then taken to ER/triage. [facility] 09-16-2022 Note Formatting of this n ote might be different from the original. MENTAL HEALTH THERAPIST called at 12:15 for a fall in the hallway outside of cardiac services. Pt states I got a test for the circulation of my legs, when I was leaving I got on the slope of the floor. Pt has multiple abrasions to bilateral hands, with skin tear to the left hand. Abrasions with bleeding to bilateral legs, pt has has multiple scabbed areas to bilateral legs. A small bleeding area to the forehead. Pt denies LOC or neck pain, denies dizziness. VTran resp therapy arrived, pt pulse ox check was done. Room air pulse ox 85%, [id number]. Pt states he has a afib hx and takes ASA daily. Pt at first wanted to leave and refuse tx, discussed head injury and blood thinners, that his pulse ox was low. Pt agreed to go to ER for eval. Pt assisted from floor to wheelchair, then taken to ER/triage. [facility] 09-16-2022 Miscellaneous Notes Formattin g of this note might be different from the original. MENTAL HEALTH THERAPIST called at 12:15 for a fall in the hallway outside of cardiac services. Pt states I got a test for the circulation of my legs, when I was leaving I got on the slope of the floor. Pt has multiple abrasions to bilateral hands, with skin tear to the left hand. Abrasions with bleeding to bilateral legs, pt has has multiple scabbed areas to bilateral legs. A small bleeding area to the forehead. Pt denies LOC or neck pain, denies dizziness. VTran resp therapy arrived, pt pulse ox check was done. Room air pulse ox 85%, [id number]. Pt states he has a afib hx and takes ASA daily. Pt at first wanted to leave and refuse tx, discussed head injury and blood thinners, that his pulse ox was low. Pt agreed to go to ER for eval. Pt assisted from floor to wheelchair, then taken to ER/triage. documented in this encounter [facility] 09-16-2022 Emergency departm ent Triage note Arrived via w/c from patient Dr owusu , A/0 x4, GCS 15, able to speak in complete sentences and provide own PMHX, patient hit head after fall, currently on ASA 81 mg daily, placed on monitor, continue to assess [facility] 09-16-2022 Physician Emergen cy department Note [facility] ED EMERGENCY DEPARTMENT ENCOUNTER Pt Name: Ryan Mc Birthdate 1945 Date of evaluation: 09/16/2022 Provider: Vineet Chen MD CHIEF COMPLAINT Chief Complaint Patient presents with Fall Pt. Was being evaluated in cardiac services and the proceeded to fall when ambulating after his procedure. Pt. Presents alert in triage. Irregular heart rate. Known head injury with head trauma and takes daily aspirin. Pupils PEARRL in triage (3mm). HISTORY OF PRESENT ILLNESS I wore proper PPE for the entirety of this encounter. Ryan Mc is a 77 y.o. male who presents to the emergency department after a mechanical fall with head trauma. Patient notes that he has a history of atrial fibrillation but no longer takes anticoagulation. He says he does take a baby aspirin daily. He had head trauma on his frontal scalp but did not lose consciousness. He denies pain anywhere. Patient notes he was going to the doctors this morning to be seen for his bilateral lower extremity edema and wounds. He was noted to have a fast heart rate when he was brought to room 20. Patient says that he does not any chest pain or palpitations and does not feel lightheaded or dizzy. He notes that his heart rate is usually fast. Nursing Notes were reviewed. Limitations to history: None Outside historians: None REVIEW OF SYSTEMS (2+ for level 4; 10+ for level 5) Constitutional: as noted in HPI, and negative for fever/chills Eyes: as noted in HPI, and negative for vision changes ENT: as noted in HPI, and negative for cough CV: as noted in HPI, and negative for chest pain, negative for palpitations Resp: as noted in HPI, and negative for shortness of breath GI: as noted in HPI, and negative for abd pain, negative for n/v/d : as noted in HPI, and negative for urinary symptoms MSK: as noted in HPI, and negative for muscle pain Skin: as noted in HPI, and negative for rash Neuro: as noted in HPI, and negative for headaches, negative for acute focal weakness/numbness PAST MEDICAL HISTORY Past Medical History: Diagnosis Date Atrial fibrillation (CMS/HCC) (HCC) Hypertension Obesity SURGICAL HISTORY Past Surgical History: Procedure Laterality Date CAPSULOTOMY, HAND 07/2013 HERNIA REPAIR CURRENT MEDICATIONS Previous Medications ASPIRIN 81 MG EC TABLET Take 81 mg by mouth. FUROSEMIDE (LASIX) 40 MG TABLET Take 40 mg by mouth. SPIRONOLACTONE (ALDACTONE) 50 MG TABLET Take 50 mg by mouth daily. TRAZODONE (DESYREL) 50 MG TABLET Take 50 mg by mouth Nightly. ALLERGIES Amiodarone, Apixaban, Carvedilol, Digoxin and related, and Spironolactone FAMILY HISTORY Family History Problem Relation Name Age of Onset Heart attack Father SOCIAL HISTORY Social History Socioeconomic History Marital status: Tobacco Use Smoking status: Never Smokeless tobacco: Never Substance and Sexual Activity Alcohol use: No Drug use: No SCREENINGS PHYSICAL EXAM (up to 7 for level 4, 8 or more for level 5) ED Triage Vitals [09/16/22 1233] Temp Heart Rate Resp BP 36.4 C (97.5 F) 61 16 115/80 SpO2 Temp Source Heart Rate Source Patient Position 100 % Temporal Monitor -- BP Location FiO2 (%) -- -- Constitutional: No acute distress HEENT:Head: Frontal scalp skin tear Eyes: Conjunctivae normal. PERRLA, EOMI ENT: Mucous membranes moist. Normal oropharynx Neck: No C-spine tenderness, normal ROM, supple CV: Tachycardic, irregular RESP: CTAB, good respiratory effort, no increased wob GI: Abdomen soft, non-tender, non-distended, +BS, no guarding or rebound tenderness MSK: Normal bulk and tone, no gross deformity. No tenderness of the shoulders/arms, hands/wrists, chest wall, hips, knees, ankles/feet. Pelvis is stable. EXTR: Warm and well perfused, 2+ pitting bilateral lower extremity edema with associated erythema and mild warmth and scattered wounds to the soft tissue with no discharge SKIN: Erythema of the bilateral lower extremities PSYCH: Appropriate affect, cooperative behavior NEURO: Alert and oriented x 3, face symmetric, no slurred speech, CN2-12 intact, motor and sensory intact and equal bilaterally. DIAGNOSTIC RESULTS Procedures/EKG: EKG was reviewed by myself. Physician EKG interpretation can be found in [facility] RADIOLOGY (Per Emergency Physician): Interpretation per the Radiologist below, if available at the time of this note: CT cervical spine wo IV contrast Final Result No acute cervical spine fracture. Multilevel cervical spondylosis. Bilateral pleural effusions, incompletely imaged. Report Dictated on Electronically Signed By: Jessica Garcia MD Electronically Signed Date/Time: 09/16/2022 3:[address] head wo IV contrast Final Result No acute intracranial abnormality. Diffuse cortical volume loss and chronic small vessel ischemic changes. Report Dictated on Electronically Signed By: Jessica Garcia MD Electronically Signed Date/Time: 09/16/2022 3:01 PM EDT XR chest 1 view Final Result FINDINGS AND IMPRESSION: SUPPORT DEVICES: EKG leads OSSEOUS STRUCTURES: Unremarkable. HEART AND MEDIASTINUM: The cardiomediastinal silhouette appears unchanged from the prior exam. LUNGS AND PLEURA: There is pulmonary venous congestion and interstitial edema. Right basilar airspace opacities are present, alveolar edema versus infection. Recommend follow-up imaging in 3-4 weeks to document resolution and exclude any underlying lesions. Small bilateral pleural effusions. Report Dictated on Electronically Signed By: Emile Mcintyre MD Electronically Signed Date/Time: 09/16/2022 2:07 PM EDT LABS: Labs Reviewed BASIC METABOLIC PANEL - Abnormal Result Value SODIUM 129 (*) POTASSIUM 4.4 CHLORIDE 98 CARBON DIOXIDE 32 (*) UREA NITROGEN 20 CREATININE 0.66 GLUCOSE 100 CALCIUM 8.2 (*) ANION GAP 0 (*) eGFR >90.0 CBC WITH AUTO DIFFERENTIAL - Abnormal Auto WBC 6.0 RBC 4.61 Hemoglobin 15.2 Hematocrit 45.4 MCV 98.6 (*) MCH 33.1 MCHC 33.5 RDW 14.0 Platelets 211 MPV 10.1 nRBC 0.0 Neutrophils Relative 71.5 Lymphocytes Relative 19.5 (*) Monocytes Relative 7.5 Eosinophils Relative 1.2 Basophils Relative 0.3 Neutrophils Absolute 4.3 Lymphocytes Absolute 1.2 Monocytes Absolute 0.4 Eosinophils Absolute 0.1 Basophils Absolute 0.0 NT PRO BNP - Abnormal NT PRO BNP 9,300 (*) SEDIMENTATION RATE, AUTOMATED - Abnormal Sed Rate 38 (*) TROPONIN I - Normal TROPONIN I 0.014 Narrative: Patients with high levels of Biotin oral intake (ie >5 mg/day) may have falsely decreased Troponin levels. MAGNESIUM - Normal MAGNESIUM 2.0 C-REACTIVE PROTEIN - Normal C REACTIVE PROTEIN 6.9 LACTIC ACID, SEPSIS WITH REFLEX IF ELEVATED - Normal LACTIC ACID 0.9 EMERGENCY DEPARTMENT COURSE and DIFFERENTIAL DIAGNOSIS/MDM: Vitals: Vitals: 09/16/22 1237 09/16/22 1433 09/16/22 1441 09/16/22 1513 BP: 103/69 112/82 108/86 BP Location: Left arm Patient Position: Lying Pulse: (!) 124 (!) 120 (!) 123 Resp: Temp: TempSrc: SpO2: 100% Weight: 79.4 kg (175 lb) Height: 1.854 m (6' 1 ) Medications Tdap (BoostRIX) vaccine 0.5 mL (0.5 mL IntraMUSCular Not Given 09/16/22 1315) dilTIAZem (Cardizem) infusion 125 mg in 0.9% sodium chloride 125 mL (premix) (5 mg/hr IntraVENous New Bag 09/16/22 1512) sodium chloride 0.9 % bolus 500 mL (0 mL IntraVENous Stopped 09/16/22 1419) dilTIAZem (Cardizem) injection 10 mg (10 mg IntraVENous Given 09/16/22 1336) I personally saw the patient and performed a substantive portion of the visit including all aspects of the medical decision making. Patient appears nontoxic. He has a skin tear on his head in the fall and also a skin tear in his left knee. Knee is nontender. Patient is tachycardic and appears to be in atrial fibrillation on his EKG. His heart rate is in the 140s to 160s. Initially he was normotensive but now his blood pressure is drifting down. Unclear exactly how long he has been in atrial fibrillation and he is no longer on anticoagulation so I do not believe it is safe currently to cardiovert him. His last documented ejection fraction was 51% in 2013 per care everywhere. ED Course as of 09/16/22 1547 Tue Sep 16, 2022 1328 CBC auto differential(!) Overall normal including no leukocytosis and normal hemoglobin [JACKSON] 1335 Blood pressure is improved as the IV fluid bolus is nearing completion. Considered ordering metoprolol IV given the patient had an ejection fraction of 51% in 2013 and may have heart failure now however the patient has a documented allergy to carvedilol. Thus I ordered a Cardizem 10 mg IV bolus. [JACKSON] 1336 ESR, POC(!): 38 Mildly elevated [JACKSON] 1344 Basic metabolic panel(!) Mild hyponatremia with a sodium of 129 [JACKSON] 1345 C REACTIVE PROTEIN: 6.9 Normal [JACKSON] 1345 MAGNESIUM: 2.0 Normal [JACKSON] 1357 NT PRO BNP(!): 9,300 Significantly elevated. No prior. [JACKSON] 1357 LACTIC ACID: 0.9 Normal [JACKSON] 1357 TROPONIN I: 0.014 Within normal limits, but detectable level [JACKSON] 1411 XR chest 1 view LUNGS AND PLEURA: There is pulmonary venous congestion and interstitial edema. Right basilar airspace opacities are present, alveolar edema versus infection. Recommend follow-up imaging in 3-4 weeks to document resolution and exclude any underlying lesions. Small bilateral pleural effusions. [JACKSON] 1411 Chest x-ray radiologist final interpretation concerning for edema versus pneumonia. I think pneumonia is less likely given the patient has no leukocytosis, no fever, no cough [JACKSON] 1415 Patient heart rate still elevated in the 120s to 140s. Patient was standing and urinating when I reassessed him. I ordered a Cardizem drip. [JACKSON] 1505 CT head wo IV contrast CT head ordered to evaluate for acute bleed, cranial fracture, space occupying lesions is negative for acute bleed, cranial fracture, space occupying lesions on my interpretation. No acute abnormalities on the radiologist's final read. [JACKSON] 1511 CT cervical spine wo IV contrast IMPRESSION: No acute cervical spine fracture. Multilevel cervical spondylosis. Bilateral pleural effusions, incompletely imaged. [JACKSON] [address] Murillo from [facility] over the phone who accept the patient. [JACKSON] 1539 I was advised that the patient wants to leave AGAINST MEDICAL ADVICE. The patient told me that he wants to leave because he does not want to be admitted and does not want further treatment. I told him that he is in atrial fibrillation which is an abnormal rhythm and he has a fast heart rate. I told him that he is in acute heart failure and that this will likely get worse and he will get worsening shortness of breath and leg swelling and he has a very high chance of becoming permanently disabled and dying perhaps in very short order. Patient said that he knows and accepts these risks and still wants to go home. I requested that we trial ambulation with the patient prior to him leaving AMA to make sure he was steady on his feet. [JACKSON] 1546 Pt ambulated with a steady gait. He will leave AMA. [JACKSON] ED Course User Index [JACKSON] Vineet Chen MD Diagnoses as of 09/16/22 1547 Atrial fibrillation with rapid ventricular response (CMS/HCC) (HCC) Closed head injury, initial encounter Open leg wound, unspecified laterality, initial encounter External records reviewed: Outpatient results -echo result from 2013 Diagnostics interpreted by me: As above Discussions with other clinicians: As above Chronic conditions impacting care: Atrial fibrillation CONSULTS: None CRITICAL CARE TIME I personally saw the patient and independently provided 34 minutes of non-concurrent critical care out of the total shared critical care time provided. There was a high probability of clinically significant/life threatening deterioration in the patient's condition which required my urgent intervention. PROCEDURES: Unless otherwise noted below, none Procedures Patients symptoms are consistent with sepsis, severe sepsis, or septic shock (If yes use .sepsiscoremeasure ): no FINAL IMPRESSION 1. Atrial fibrillation with rapid ventricular response (CMS/HCC) (HCC) 2. Closed head injury, initial encounter 3. Open leg wound, unspecified laterality, initial encounter DISPOSITION/PLAN Admit 09/16/2022 03:23:39 PM PATIENT REFERRED TO: No follow-up provider specified. DISCHARGE MEDICATIONS: New Prescriptions No medications on file (Please note: Portions of this note were completed with a voice recognition program. 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 Subjective Patient ID: Ryan Mc is a 77 y.o. male who presents for Wound Care. HPI: Patient continues to see good improvement over the last week to ulcers to each lower leg. He says he has been having dressings changed with assistance of home health. He denies any new issues over the last week. Objective Physical Exam: Ulcers to right and left lower legs. Base is mixture of slough, fibrotic tissue, biofilm, and granular tissue. No purulence, no malodor, no surrounding or streaking cellulitis, no probing to bone, no tracking, and no undermining. Improvement noted this week. Assessment/Plan Wound Assessment: Wound/Incision 08/05/22 Venous Ulcer Pretibial Medial;Right (Active) Wound Image 08/12/22 131 Site Assessment Pale;Anita;Red;Sloughing 08/12/22 1311 Wound Length (cm) 3 cm 08/12/22 1311 Wound Width (cm) 4.7 cm 08/12/22 1311 Wound Surface Area (cm^2) 14.1 cm^2 08/12/22 1311 Wound Depth (cm) 0.1 cm 08/12/22 1311 Wound Volume (cm^3) 1.41 cm^3 08/12/22 1311 Wound Healing % 15 08/12/22 1311 Drainage Description Clear;Yellow 08/12/22 1311 Odor None 08/12/22 1311 Drainage Amount Moderate 08/12/22 1311 Primary Dressing Alginate;Other (Comment) 08/05/22 1338 Secondary Dressing 4x4 gauze 08/05/22 1338 Secured with Kerlex;Silk tape 08/05/22 1338 Compression Single layer tubigrip 08/05/22 1338 Dressing Status New dressing applied;Clean, dry & intact 08/05/22 1338 Wound/Incision 08/05/22 Venous Ulcer Calf Right;Posterior (Active) Wound Image 08/12/22 131 Site Assessment Pale;Anita;Sloughing 08/12/22 1312 Wound Length (cm) 1.4 cm 08/12/22 1312 Wound Width (cm) 2 cm 08/12/22 1312 Wound Surface Area (cm^2) 2.8 cm^2 08/12/22 1312 Wound Depth (cm) 0.2 cm 08/12/22 1312 Wound Volume (cm^3) 0.56 cm^3 08/12/22 1312 Wound Healing % 7 08/12/22 1312 Drainage Description Clear 08/12/22 1312 Odor None 08/12/22 1312 Drainage Amount Moderate 08/12/22 1312 Primary Dressing Alginate;Other (Comment) 08/05/22 1340 Secondary Dressing 4x4 gauze 08/05/22 1340 Secured with Kerlex;Paper tape 08/05/22 1340 Compression Single layer tubigrip 08/05/22 1340 Dressing Status New dressing applied;Clean, dry & intact 08/05/22 1340 Wound/Incision 08/05/22 Venous Ulcer Lower Leg Left;Lateral;Medial (Active) Wound Image 08/12/22 1309 Site Assessment Edema;Pale;Anita;Sloughing 08/12/22 1309 Wound Length (cm) 19 cm 08/12/22 1309 Wound Width (cm) 5 cm 08/12/22 1309 Wound Surface Area (cm^2) 95 cm^2 08/12/22 1309 Wound Depth (cm) 0.1 cm 08/12/22 1309 Wound Volume (cm^3) 9.5 cm^3 08/12/22 1309 Wound Healing % 63 08/12/22 1309 Drainage Description Clear 08/12/22 1309 Odor None 08/12/22 1309 Drainage Amount Large 08/12/22 1309 Primary Dressing Alginate;Other (Comment) 08/05/22 1340 Secondary Dressing 4x4 gauze 08/05/22 1340 Secured with Kerlex;Paper tape 08/05/22 1340 Compression Single layer tubigrip 08/05/22 1340 Dressing Status New dressing applied;Clean, dry & intact 08/05/22 1340 Debridement Wound/Incision 08/05/22 Venous Ulcer Pretibial Medial;Right Consent obtained? verbal Consent given by: patient Risks discussed? procedural risks discussed Time out called at 08/12/2022 1:31 PM Immediately prior to the procedure a time out was called Performed by: physician Debridement type: surgical Level of debridement: subcutaneous tissue Pain control: lidocaine 2% Post-debridement measurements Length (cm): 3.1 Width (cm): 4.8 Depth (cm): 0.2 Percent debrided: 100% Surface Area (cm^2): 14.88 Area debrided (cm^2): 14.88 Volume (cm^3): 2.98 Tissue and other material debrided: subcutaneous tissue Devitalized tissue debrided: biofilm, callus, fibrin and slough Instrument(s) utilized: curette Bleeding: small Hemostasis obtained with: pressure Procedural pain (0-10): 2 Post-procedural pain: 0 Response to treatment: procedure was tolerated well Debridement Wound/Incision 08/05/22 Venous Ulcer Calf Right;Posterior Consent obtained? verbal Consent given by: patient Risks discussed? procedural risks discussed Time out called at 08/12/2022 1:32 PM Immediately prior to the procedure a time out was called Performed by: physician Debridement type: surgical Level of debridement: subcutaneous tissue Pain control: lidocaine 2% Post-debridement measurements Length (cm): 1.5 Width (cm): 2.1 Depth (cm): 0.2 Percent debrided: 100% Surface Area (cm^2): 3.15 Area debrided (cm^2): 3.15 Volume (cm^3): 0.63 Tissue and other material debrided: subcutaneous tissue Devitalized tissue debrided: biofilm, callus, fibrin and slough Instrument(s) utilized: curette Bleeding: small Hemostasis obtained with: pressure Procedural pain (0-10): 2 Post-procedural pain: 0 Response to treatment: procedure was tolerated well Debridement Wound/Incision 08/05/22 Venous Ulcer Lower Leg Left;Lateral;Medial Consent obtained? verbal Consent given by: patient Risks discussed? procedural risks discussed Time out called at 08/12/2022 1:32 PM Immediately prior to the procedure a time out was called Performed by: physician Debridement type: surgical Level of debridement: subcutaneous tissue Pain control: lidocaine 2% Post-debridement measurements Length (cm): 19.1 Width (cm): 5.1 Depth (cm): 0.2 Percent debrided: 50% Surface Area (cm^2): 97.41 Area debrided (cm^2): 48.71 Volume (cm^3): 19.48 Tissue and other material debrided: subcutaneous tissue Devitalized tissue debrided: biofilm, callus, fibrin and slough Instrument(s) utilized: curette Bleeding: small Hemostasis obtained with: pressure Procedural pain (0-10): 2 Post-procedural pain: 0 Response to treatment: procedure was tolerated well Plan: Patient examined and evaluated. Debridement performed. Stressed importance of elevation and compression. He is to keep legs out of the dependent position. He is to keep ulcer sites offloaded at all times. Discussed possible lymphedema pumps in the future. PVR and venous reflux studies ordered last week, but patient relates today that he thought about it, and does not want to have any further testing done at this time. He says he may be open to going forward with this testing in the future if no improvement is noted, but for now, he says he is going to cancel these tests. Patient will follow up in one week to check on progress, or sooner if needed for any reason before then. Will start on cipro today. documented in this encounter [facility] 08-12-2022 Hospital Discharg e dave Tran RN - 08/12/2022 1:15 PM EDT Follow up with Dr. Evans in 1 week Edema/Swelling: Avoid standing for long periods of time, Elevate legs to the level of the heart or above for 30 minutes daily and/or when sitting, a frequency of: every day when sitting. 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 Cleansing: Okay to shower. Do not soak legs. Clean wounds separately after shower with antibacterial soap and water, pat dry, then apply dressings. Wound Dressings: Primary - Adaptic, Alginate Secondary - ABD Secured with - Kerlex, Tape Compression - Single layer tubigrip bilaterally Begin taking new antibiotic as prescribed until gone. If you have any issues with this medication, please contact the wound center at [phone] or [phone]. 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 Subjective Patient ID: Ryan Mc is a 77 y.o. male who presents for Wound Care. HPI: Patient was referred to wound center for ulcers to each lower leg. He presents to clinic today with his son. He says these wounds have been open for about 4-6 weeks. They have not been showing much improvement, but have not been worsening much lately either. He says his primary care recently started him on cephalexin. He is currently taking this. He denies any current feelings of nausea, vomiting, fever, or chills. Review of Systems Constitutional: Negative for chills, diaphoresis, fatigue and fever. Cardiovascular: Positive for leg swelling. Negative for chest pain and palpitations. Gastrointestinal: Negative for constipation, diarrhea, nausea and vomiting. Skin: Positive for wound. Negative for color change, pallor and rash. Past Medical History: Diagnosis Date Atrial fibrillation ([facility]/HCC) ([facility]) Hypertension Obesity Past Surgical History: Procedure Laterality Date CAPSULOTOMY, HAND 07/2013 HERNIA REPAIR Social History Socioeconomic History Marital status: Spouse name: Not on file Number of children: Not on file Years of education: Not on file Highest education level: Not on file Occupational History Not on file Tobacco Use Smoking status: Never Smokeless tobacco: Never Substance and Sexual Activity Alcohol use: No Drug use: No Sexual activity: Not on file Other Topics Concern Not on file Social History Narrative Not on file Social Determinants of Health Financial Resource Strain: Not on file Food Insecurity: Not on file Transportation Needs: Not on file Physical Activity: Not on file Stress: Not on file Social Connections: Not on file Intimate Partner Violence: Not on file Housing Stability: Not on file Family History Problem Relation Name Age of Onset Heart attack Father Medication Documentation Review Audit Reviewed by Priyanka Espinoza RN (Registered Nurse) on 08/05/22 at 1324 Medication Order Taking? Sig Documenting Provider Last Dose Status aspirin 81 MG EC tablet [id number] Yes Take 81 mg by mouth. Historical Provider, Active cephalexin (Keflex) 500 MG capsule [id number] Take 500 mg by mouth 4 times daily. Historical Provider, Active furosemide (Lasix) 40 MG tablet [id number] Yes Take 40 mg by mouth. Historical Provider, Active spironolactone (Aldactone) 50 MG tablet [id number] Take 50 mg by mouth daily. Historical Provider, Active traZODone (Desyrel) 50 MG tablet [id number] Take 50 mg by mouth Nightly. Historical Provider, Active No Known Allergies Vitals: 08/05/22 1346 BP: (!) 76/42 Pulse: (!) 144 Temp: Objective Physical Exam: Ulcers to right and left lower legs. Base is mixture of slough, fibrotic tissue, biofilm, and granular tissue. No purulence, no malodor, no surrounding or streaking cellulitis, no probing to bone, no tracking, and no undermining. DP and PT pulses are very faintly palpable. DP and PT pulses are audible on doppler examination. No signs of acute ischemia to either lower extremity. Bilateral lower extremity edema and varicosities noted. Hemosiderin skin deposit hyperpigmentation noted. CFT less than 3 seconds to all distal digits of each foot. Bilateral lymphedema. Gross lower extremity epicritic sensation intact bilateral. AROM of all digits of each foot. Assessment/Plan Wound Assessment: Wound/Incision 08/05/22 Venous Ulcer Pretibial Medial;Right (Active) Wound Image 08/05/22 1338 Site Assessment Granulation;Maceration;Painful;Pale;Pi nk;Red;Sloughing 08/05/22 1338 Wound Length (cm) 3.2 cm 08/05/22 1338 Wound Width (cm) 5.2 cm 08/05/22 1338 Wound Surface Area (cm^2) 16.64 cm^2 08/05/22 1338 Wound Depth (cm) 0.1 cm 08/05/22 1338 Wound Volume (cm^3) 1.664 cm^3 08/05/22 1338 Drainage Description Clear 08/05/22 1338 Odor None 08/05/22 1338 Drainage Amount Large 08/05/22 1338 Wound/Incision 08/05/22 Venous Ulcer Calf Right;Posterior (Active) Wound Image 08/05/22 1340 Site Assessment Granulation;Maceration;Painful;Pale;Pi nk;Red;Sloughing 08/05/22 1340 Wound Length (cm) 1.5 cm 08/05/22 1340 Wound Width (cm) 2 cm 08/05/22 1340 Wound Surface Area (cm^2) 3 cm^2 08/05/22 1340 Wound Depth (cm) 0.2 cm 08/05/22 1340 Wound Volume (cm^3) 0.6 cm^3 08/05/22 1340 Drainage Description Clear 08/05/22 1340 Odor None 08/05/22 1340 Drainage Amount Large 08/05/22 1340 Wound/Incision 08/05/22 Venous Ulcer Lower Leg Left;Lateral;Medial (Active) Debridement Wound/Incision 08/05/22 Venous Ulcer Pretibial Medial;Right Consent obtained? verbal Consent given by: patient Risks discussed? procedural risks discussed Time out called at 08/05/2022 4:29 PM Immediately prior to the procedure a time out was called Performed by: physician Debridement type: surgical Level of debridement: subcutaneous tissue Pain control: lidocaine 2% Post-debridement measurements Length (cm): 3.3 Width (cm): 5.3 Depth (cm): 0.2 Percent debrided: 100% Surface Area (cm^2): 17.49 Area debrided (cm^2): 17.49 Volume (cm^3): 3.5 Tissue and other material debrided: subcutaneous tissue Devitalized tissue debrided: biofilm, callus, fibrin and slough Instrument(s) utilized: curette Bleeding: small Hemostasis obtained with: pressure Procedural pain (0-10): 2 Post-procedural pain: 0 Response to treatment: procedure was tolerated well Debridement Wound/Incision 08/05/22 Venous Ulcer Lower Leg Left;Lateral;Medial Consent obtained? verbal Consent given by: patient Risks discussed? procedural risks discussed Time out called at 08/05/2022 4:30 PM Immediately prior to the procedure a time out was called Performed by: physician Debridement type: surgical Level of debridement: subcutaneous tissue Pain control: lidocaine 2% Post-debridement measurements Length (cm): 27.1 Width (cm): 9.6 Depth (cm): 0.2 Percent debrided: 25% Surface Area (cm^2): 260.16 Area debrided (cm^2): 65.04 Volume (cm^3): 52.03 Tissue and other material debrided: subcutaneous tissue Devitalized tissue debrided: biofilm, callus, fibrin and slough Instrument(s) utilized: curette Bleeding: small Hemostasis obtained with: pressure Procedural pain (0-10): 2 Post-procedural pain: 0 Response to treatment: procedure was tolerated well Plan: Patient examined and evaluated. Debridement performed. Cultures taken. Stressed importance of elevation and compression. He is to keep legs out of the dependent position. He is to keep ulcer sites offloaded at all times. Discussed possible lymphedema pumps in the future. PVR and venous reflux studies ordered. Patient will follow up in one week to check on progress, or sooner if needed for any reason before then. 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 Subjective Patient ID: Ryan Mc is a 77 y.o. male who presents for Wound Care. HPI: Patient was referred to wound center for ulcers to each lower leg. He presents to clinic today with his son. He says these wounds have been open for about 4-6 weeks. They have not been showing much improvement, but have not been worsening much lately either. He says his primary care recently started him on cephalexin. He is currently taking this. He denies any current feelings of nausea, vomiting, fever, or chills. Review of Systems Constitutional: Negative for chills, diaphoresis, fatigue and fever. Cardiovascular: Positive for leg swelling. Negative for chest pain and palpitations. Gastrointestinal: Negative for constipation, diarrhea, nausea and vomiting. Skin: Positive for wound. Negative for color change, pallor and rash. Past Medical History: Diagnosis Date Atrial fibrillation (CMS/HCC) (HCC) Hypertension Obesity Past Surgical History: Procedure Laterality Date CAPSULOTOMY, HAND 07/2013 HERNIA REPAIR Social History Socioeconomic History Marital status: Spouse name: Not on file Number of children: Not on file Years of education: Not on file Highest education level: Not on file Occupational History Not on file Tobacco Use Smoking status: Never Smokeless tobacco: Never Substance and Sexual Activity Alcohol use: No Drug use: No Sexual activity: Not on file Other Topics Concern Not on file Social History Narrative Not on file Social Determinants of Health Financial Resource Strain: Not on file Food Insecurity: Not on file Transportation Needs: Not on file Physical Activity: Not on file Stress: Not on file Social Connections: Not on file Intimate Partner Violence: Not on file Housing Stability: Not on file Family History Problem Relation Name Age of Onset Heart attack Father Medication Documentation Review Audit Reviewed by Priyanka Espinoza RN (Registered Nurse) on 08/05/22 at 1324 Medication Order Taking? Sig Documenting Provider Last Dose Status aspirin 81 MG EC tablet [id number] Yes Take 81 mg by mouth. Historical Provider, Active cephalexin (Keflex) 500 MG capsule [id number] Take 500 mg by mouth 4 times daily. Historical Provider, Active furosemide (Lasix) 40 MG tablet [id number] Yes Take 40 mg by mouth. Historical Provider, Active spironolactone (Aldactone) 50 MG tablet [id number] Take 50 mg by mouth daily. Historical Provider, Active traZODone (Desyrel) 50 MG tablet [id number] Take 50 mg by mouth Nightly. Historical Provider, Active No Known Allergies Vitals: 08/05/22 1346 BP: (!) 76/42 Pulse: (!) 144 Temp: Objective Physical Exam: Ulcers to right and left lower legs. Base is mixture of slough, fibrotic tissue, biofilm, and granular tissue. No purulence, no malodor, no surrounding or streaking cellulitis, no probing to bone, no tracking, and no undermining. DP and PT pulses are very faintly palpable. DP and PT pulses are audible on doppler examination. No signs of acute ischemia to either lower extremity. Bilateral lower extremity edema and varicosities noted. Hemosiderin skin deposit hyperpigmentation noted. CFT less than 3 seconds to all distal digits of each foot. Bilateral lymphedema. Gross lower extremity epicritic sensation intact bilateral. AROM of all digits of each foot. Assessment/Plan Wound Assessment: Wound/Incision 08/05/22 Venous Ulcer Pretibial Medial;Right (Active) Wound Image 08/05/22 1338 Site Assessment Granulation;Maceration;Painful;Pale;Pi nk;Red;Sloughing 08/05/22 1338 Wound Length (cm) 3.2 cm 08/05/22 1338 Wound Width (cm) 5.2 cm 08/05/22 1338 Wound Surface Area (cm^2) 16.64 cm^2 08/05/22 1338 Wound Depth (cm) 0.1 cm 08/05/22 1338 Wound Volume (cm^3) 1.664 cm^3 08/05/22 1338 Drainage Description Clear 08/05/22 1338 Odor None 08/05/22 1338 Drainage Amount Large 08/05/22 1338 Wound/Incision 08/05/22 Venous Ulcer Calf Right;Posterior (Active) Wound Image 08/05/22 1340 Site Assessment Granulation;Maceration;Painful;Pale;Pi nk;Red;Sloughing 08/05/22 1340 Wound Length (cm) 1.5 cm 08/05/22 1340 Wound Width (cm) 2 cm 08/05/22 1340 Wound Surface Area (cm^2) 3 cm^2 08/05/22 1340 Wound Depth (cm) 0.2 cm 08/05/22 1340 Wound Volume (cm^3) 0.6 cm^3 08/05/22 1340 Drainage Description Clear 08/05/22 1340 Odor None 08/05/22 1340 Drainage Amount Large 08/05/22 1340 Wound/Incision 08/05/22 Venous Ulcer Lower Leg Left;Lateral;Medial (Active) Debridement Wound/Incision 08/05/22 Venous Ulcer Pretibial Medial;Right Consent obtained? verbal Consent given by: patient Risks discussed? procedural risks discussed Time out called at 08/05/2022 4:29 PM Immediately prior to the procedure a time out was called Performed by: physician Debridement type: surgical Level of debridement: subcutaneous tissue Pain control: lidocaine 2% Post-debridement measurements Length (cm): 3.3 Width (cm): 5.3 Depth (cm): 0.2 Percent debrided: 100% Surface Area (cm^2): 17.49 Area debrided (cm^2): 17.49 Volume (cm^3): 3.5 Tissue and other material debrided: subcutaneous tissue Devitalized tissue debrided: biofilm, callus, fibrin and slough Instrument(s) utilized: curette Bleeding: small Hemostasis obtained with: pressure Procedural pain (0-10): 2 Post-procedural pain: 0 Response to treatment: procedure was tolerated well Debridement Wound/Incision 08/05/22 Venous Ulcer Lower Leg Left;Lateral;Medial Consent obtained? verbal Consent given by: patient Risks discussed? procedural risks discussed Time out called at 08/05/2022 4:30 PM Immediately prior to the procedure a time out was called Performed by: physician Debridement type: surgical Level of debridement: subcutaneous tissue Pain control: lidocaine 2% Post-debridement measurements Length (cm): 27.1 Width (cm): 9.6 Depth (cm): 0.2 Percent debrided: 25% Surface Area (cm^2): 260.16 Area debrided (cm^2): 65.04 Volume (cm^3): 52.03 Tissue and other material debrided: subcutaneous tissue Devitalized tissue debrided: biofilm, callus, fibrin and slough Instrument(s) utilized: curette Bleeding: small Hemostasis obtained with: pressure Procedural pain (0-10): 2 Post-procedural pain: 0 Response to treatment: procedure was tolerated well Plan: Patient examined and evaluated. Debridement performed. Cultures taken. Stressed importance of elevation and compression. He is to keep legs out of the dependent position. He is to keep ulcer sites offloaded at all times. Discussed possible lymphedema pumps in the future. PVR and venous reflux studies ordered. Patient will follow up in one week to check on progress, or sooner if needed for any reason before then. documented in this encounter [facility] 08-05-2022 Hospital Discharg e instructions Priyanka Espinoza RN - 08/05/2022 1:00 PM EDT Follow up with Dr. Evans in 1 week Edema/Swelling: Avoid standing for long periods of time, Elevate legs to the level of the heart or above for 30 minutes daily and/or when sitting, a frequency of: every day when sitting. 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 Cleansing: Okay to shower. Do not soak legs. Clean wounds separately after shower with antibacterial soap and water, pat dry, then apply dressings. Wound Dressings: Primary - Adaptic, Alginate Secondary - ABD Secured with - Kerlex, Tape Compression - Single layer tubigrip bilaterally Continue taking current antibiotics unless otherwise instructed by Dr. Evans when culture comes back. Wound center will refer to home health to see if you qualify for wound care visits documented in this encounter [facility] 08-05-2022 Hospital Discharg e instructions Priyanka Espinoza RN - 08/05/2022 1:00 PM EDT Follow up with Dr. Evans in 1 week Edema/Swelling: Avoid standing for long periods of time, Elevate legs to the level of the heart or above for 30 minutes daily and/or when sitting, a frequency of: every day when sitting. 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 Cleansing: Okay to shower. Do not soak legs. Clean wounds separately after shower with antibacterial soap and water, pat dry, then apply dressings. Wound Dressings: Primary - Adaptic, Alginate Secondary - ABD Secured with - Kerlex, Tape Compression - Single layer tubigrip bilaterally Continue taking current antibiotics unless otherwise instructed by Dr. Evans when culture comes back. Wound center will refer to home health to see if you qualify for wound care visits documented in this encounter [facility] 08-05-2022 Miscellaneous Notes Encounter addended by: Priyanka Espinoza RN on: 08/06/2022 9:10 AM Actions taken: Diagnosis association updated, Order list changed documented in this encounter [facility] 08-05-2022 Note Encounter addended b y: Priyanka Espinoza RN on: 08/06/2022 9:10 AM Actions taken: Diagnosis association updated, Order list changed [facility] Diagnosis 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) Venous insufficiency Unspecified venous (peripheral) insufficiency 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) Leg edema Edema Peripheral vascular disease, unspecified (HCC) Peripheral vascular disease, unspecified Lymphedema Other noninfectious lymphedema Pain of right lower leg Pain of left lower leg [facility] Diagnosis 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)- Primary Venous insufficiency Unspecified venous (peripheral) insufficiency 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) Leg edema Edema Peripheral vascular disease, unspecified (HCC) Peripheral vascular disease, unspecified Lymphedema Other noninfectious lymphedema Pain of right lower leg Pain of left lower leg [facility]* Diagnosis Atrial fibrillation with rapid ventricular response (CMS/HCC) (HCC)- Primary Atrial fibrillation with rapid ventricular response (CMS/HCC) (HCC) Closed head injury, initial encounter Open leg wound, unspecified laterality, initial encounter [facility]* Diagnosis Venous insufficiency (chronic) (peripheral) Unspecified venous (peripheral) insufficiency 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) [facility]* Diagnosis Venous insufficiency (chronic) (peripheral)- Primary Unspecified venous (peripheral) insufficiency 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) Venous insufficiency (chronic) (peripheral) Unspecified venous (peripheral) insufficiency 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) documented in this encounter [facility] Reason for Referral Specialty Diagnoses / Procedures Referred By Julian troncoso Referred To Contact Home Health Services Diagnoses Peripheral vascular disease, unspecified (HCC) Venous insufficiency Leg edema Procedures OK OFFICE/OUTPATIENT [facility] 60-74 MINUTES Nicole Evans DPM [address] [place] [address] Referral ID Status Reason Start Date Expiration Date Visits Requested Visits Authorized [id number] Pending Review Specialty Services Required 08/05/2022 02/01/2023 999 999 Specialty Diagnoses / Procedures Referred By Julian troncoso Referred To Contact Cardiology Diagnoses Leg edema Procedures Vascular US lower extremity venous insufficiency bilateral Nicole Evans DPM [address] [place] [address] Referral ID Status Reason Start Date Expiration Date Visits Requested Visits Authorized [id number] Pending Review Perform Procedure 08/05/2022 02/01/2023 1 1 Specialty Diagnoses / Procedures Referred By Contac t Referred To Contact Cardiology Diagnoses Peripheral vascular disease, unspecified (HCC) Procedures Vascular US lower extremity arterial PVR Nicole Evans DPM [address] [place] [address] Referral ID Status Reason Start Date Expiration Date Visits Requested Visits Authorized [id number] Pending Review Perform Procedure 08/05/2022 02/01/2023 1 1 Specialty Diagnoses / Procedures Referred By Contac t Referred To Contact Home Health Services / Toddler Caregiver Diagnoses Venous insufficiency 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 Pt. Presents alert in triage. Irregular heart rate. Known head injury with head trauma and takes daily aspirin. Pupils PEARRL in triage (3mm). 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) Procedures Vascular US lower extremity arterial PVR Genia Jackson MD [address] [place] [address] Referral ID Status Reason Start Date Expiration Date V isits Requested Visits Authorized [id number] Closed Perform Procedure 09/11/2022 03/10/2023 1 1 Care Teams (unrecognized sec tion and content) Manager Business Planning Relationship Specialty Start Date End Date Genia Jackson MD [address] [place] [id number] PCP - General 04/02/16 Manager Business Planning Relationship Specialty Start Date End Date Genia Jackson MD [address] [place] [id number] PCP - General 04/02/16 Manager Business Planning Relationship Specialty Start Date End Date Genia Jackson MD [address] [place] [id number] PCP - General 04/02/16 Manager Business Planning Relationship Specialty Start Date End Date Genia Jackson MD [address] [place] [id number] PCP - General 04/02/16 Manager Business Planning Relationship Specialty Start Date End Date Genia Jackson MD [address] [place] [address] PCP - General 04/02/16 Scheduled Active and Recently Administ ered Medications (unrecognized section and content) Continuous Medication Order 09/14/2022 09/15/2022 09/16/2022 dilTIAZem (Cardizem) infusion 125 mg in 0.9% sodium chloride 125 mL (premix) 2.5-15 mg/hr (2.5-15 mL/hr), IntraVENous, Continuous, Starting on Thu09/16/22 at 1420, If Titrate Infusion? is No : Disregard instructions below. If Titrate infusion? is Yes : Titrate in increments of 2.5 mg/hr no more frequently than every 30 minutes to goal of therapy., Titrate Infusion? Yes, Initial Infusion Dose: 2.5 mg/hr, Goal of Therapy is: HR less than 120 bpm, Other: HR less than 120 bpm, HOLD for: SBP less than 90 mmHg 1431 (New Bag - Prov ider: Lillie Lopez RN)1512 (New Bag - Provider: Manuel Morales RN)1601 (Stopped - Provider: Manuel Morales RN) (unrecognized sect ion and content) No Status Records Found INFORMATION SOURCE (unrecogn ized section and content) FOR RECORDS PERTAINING TO PATIENTS WHO ARE OR HAVE BEEN ENROLLED IN A CHEMICAL DEPENDENCY/SUBSTANCEABUSE PROGRAM, SOME INFORMATION MAY BE OMITTED. This clinical summary was aggregated from multiple sources. Caution should be exercised in using it in the provision of clinical care. This summary normalizes information from multiple sources, and as a consequence, information in this document may materially change the coding, format and clinical context of patient data. In addition, data may be omitted in some cases. CLINICAL DECISIONS SHOULD BE BASED ON THE PRIMARY CLINICAL RECORDS. [employer] provides no warranty or guarantee of the accuracy or completeness of information in this document.
--- NOTE | 2023-04-09 00:29 | ED.RN ---
Prior to EMS arrival patient was resistant to being seen in the hospital. According to the patient and his sons, he needed heavy assistance by 3+ people into the ambulance. Once in the truck the patient refused to allow EMS to take vital signs. Upon arrival to the hospital the patient was resistant to treatment and would no allow staff to take a blood pressure or pulse ox, stating he wants to go home. The patient is coherent reporting name, birthday, date, situation (A&Ox4). Treatment was delayed until family reached the facility. His two sons Fitz and Robbie tried to talk with the patient to agree to basic treatment, vital signs, but patient continued to refuse. The patient repeatedly reported wanting to go home so he could see doctor Renetta on 04/09/2023. This nurse and Dr. Bo attempted to ambulate patient with no success because patient was unsteady and grasping at nearby objects. After talking with the doctor and family, further interventions are necessary for patient care, yet patient is resistant to changing into a gown, vital signs, blood work, Doppler. Doctor Bo notified of patient refusal for nursing interventions at this time 1086. I was informed that he will follow the medical hold policy in [facility] when he gets a chance.
--- NOTE | 2023-04-09 01:17 | EDS_ITS ---
HPI History of Present Illness Chief Complaint: Cellulitis Informant: patient and family Narrative Narrative: Patient is a 77-year-old male from home with past medical history of atrial fibrillation peripheral edema and hypertension. Son states that he has noticed that the patient's legs have been gradually increasing in size and he has noticed multiple wounds to the bilateral lower legs. He states that they are discolored and the patient's been having difficulty walking secondary to the swelling and pain. He has concern that the wounds are becoming infected and he will need admitted for IV antibiotics and therefore he called EMS to bring the patient in for evaluation. The patient states that his legs were fine just a few days ago and he states he is going to see his family doctor to discuss treatment options and does not want to be in the hospital and will not give any further history [facility] Medical History Easy bruising History of atrial fibrillation History of cardioversion History of edema History of hypertension History of stress test Non-smoker Wears glasses Home Medications aspirin 81 mg tablet,delayed release 81 mg PO DAILY 11/01/21 [History Last Taken Unknown] furosemide 40 mg tablet 40 mg PO DAILY 11/01/21 [History Last Taken Unknown] potassium chloride 20 mEq tablet,extended release 20 meq PO DAILY 11/01/21 [History Last Taken Unknown] hydrocodone-acetaminophen 5-325mg 5mg-325mg 1 tab PO Q8H PRN pain 3 days #8 tabs 12/06/21 [Rx Last Taken Unknown] Allergy/AdvReac Type Severity Reaction Status Date / Time amiodarone Allergy Dizziness Verified 04/08/23 23:13 apixaban [From Eliquis] Allergy flu-like Verified 04/08/23 23:13 symptoms carvedilol Allergy sluggish/shabazz Verified 04/08/23 23:13 zy digoxin Allergy dizzy Verified 04/08/23 23:13 Family History (Updated 11/01/21 @ 13:03 by Alexus Thursday) Father Heart disease Hypertension Social History (Updated 11/01/21 @ 13:04 by Alexus Thursday) Smoking Status: Never smoker alcohol intake: never substance use type: does not use ROS ROS ED ROS Narrative Please note review of systems may be unreliable as patient is uncooperative with exam Constitutional Constitutional ED: Denies chills or fever(s) ENT ENT ED: Denies sore throat Cardiovascular Cardiovascular: Denies chest pain Respiratory/Chest Respiratory/Chest: Denies cough or dyspnea Gastrointestinal Gastrointestinal: Denies abdominal pain, diarrhea, nausea or vomiting Genitourinary Genitourinary ED: Denies dysuria Musculoskeletal Musculoskeletal: Denies myalgias Integumentary Denies rash Neurologic Neurologic: Denies headache(s) Hematologic/Lymphatic Hematologic/Lymphatic: Denies easy bleeding or easy bruising EXAM Physical Exam Const Vital Signs: 04/08/23 22:45 04/09/23 05:07 Temperature 97.9 F Temperature Source Temporal Respiratory Rate 18 Positive well developed and unkempt General Appearance ED: unkempt and well developed HEENT HEENT Narrative: Normocephalic atraumatic Eyes PERRL and EOMs intact bilaterally General Eye ED: Negative for scleral icterus Neck supple Neck Narrative: No nuchal rigidity or meningeal signs noted Resp normal respiratory effort and clear to auscultation bilaterally Resp Narrative: Breath sounds are diminished throughout but overall clear to auscultation without nasal flaring retractions tachypnea or accessory muscle use Cardio regular rate and regular rhythm GI normal to inspection, nondistended, normoactive bowel sounds, non-tender, non- distended and no masses GI Narrative: No voluntary guarding or rigidity or pulsatile mass No obvious fluid wave noted Auscultation: normoactive bowel sounds Palpation: soft Extremity Extremity Narrative: Patient has +4 pitting edema to the bilateral lower extremities mainly extending from the knee down to the foot. He has diffuse erythema and chronic stasis changes to each lower leg from the knee down. The lower leg is cold to touch with delayed capillary refill of approximately 4 seconds. Patient has multiple ulcers across both the right and left leg. Some appear necrotic and some hypergranulation tissue present. There also is mild lymphangitic streaking that extends into the medial thigh bilaterally. Patient also has soft tissue swelling with chronic stasis changes to the bilateral upper extremities. Neuro oriented x3 and CN's II-XII intact bilaterally Neuro Narrative: Patient is awake alert and oriented to person place and time There is no obvious focal neurologic deficit GCS of 15 Patient has weakness of his bilateral lower legs with this is secondary to the soft tissue swelling and increased weight and not due to neurologic deficit. Sensorium / Orientation: alert Psych Psych Narrative: Patient has a agitated affect Appearance: unkempt Skin Skin Narrative: Soft tissue changes to the bilateral lower legs as documented above MDM MDM MDM Narrative Medical decision making narrative: Patient arrived to the ER and stated that he did not want to be here that he is here against his will and that his son forced him to come. Secondary to this he would not allow us to take vitals or perform testing. I discussed with the patient that based on his leg swelling and redness and ulcerations that there is high likelihood he is developing a infection that could be tracking down to his bone or into his bloodstream. Patient still refused any type of testing. The patient also has weakness of his lower legs secondary to the ulcers and weight and we attempted to ambulate the patient but he is unable to stand under his own power indicating he is not safe to go home. Despite showing this to the patient that he would not be able to ambulate on his own at home he still refuses treatment and states that he wishes to return home. His son whom he lives with is refusing to take him home stating that he needs help that he cannot provide him and that he does not feel he can get as an outpatient. The patient is alert and he is oriented to person place and time. He states he understands that I am telling him he is unsafe that he cannot ambulate that he could fall and break a bone or have developed a brain bleed and that his wounds are concerning for potential arterial occlusion as well as skin and bone and systemic infection. He states he feels fine and he understands my concern but he does not believe he needs to be admitted to the hospital or undergo workup. Therefore at this time as the patient's son is refusing to take him home and requesting further evaluation and workup but the patient is refusing this and is demonstrated that he is unsafe for discharge as he cannot even stand at bedside under his own power and medical hold will be placed. The patient was reevaluated multiple times throughout the evening and still he refuses any type of testing. We attempted to contact the son throughout the night but there was no answer. Therefore at this time the patient will continue to be a medical hold where we will discuss potential treatment options with his son if we can get a hold of him once again as well as hospital administration. Patient will be signed out to the day physician Dr. Randall as he has refused all care throughout the evening but is under medical hold at this time Discharge Plan Triage Chief Complaint: Cellulitis ED Provider: Cirilo Bo Dx/Rx/DC Orders Clinical Impression: Ulcer of extremity due to chronic venous insufficiency, Cellulitis of both lower extremities, Peripheral vascular disease, Peripheral arterial disease, Peripheral edema Prescriptions: No Action furosemide 40 mg tablet 40 mg PO DAILY potassium chloride 20 mEq tablet extended release 20 meq PO DAILY aspirin 81 mg tablet,delayed release (DR/EC) 81 mg PO DAILY Patient Comments: PT WILL STOP ASPIRIN 12/05/21 FOR SURGERY ON 12/06/21 hydrocodone-acetaminophen 5-325 mg tablet 1 tab PO Q8H PRN (Reason: pain) 3 Days Qty: 8 0RF Primary Care Provider: Dario Jackson Referrals: Dario Jackson MD [Primary Care Provider] - Capacity Capacity Assessment Tool Patient lacks Decision Making Capacity: unable to understand, reason and deliberate health related choices: Yes (Patient does not understand that his inability to ambulate can cause trauma) Risk to self and or others?: Yes (Risk for fall and worsening infection) Risk of leaving the patient care unit and or hospital?: Yes 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
--- NOTE | 2023-04-09 01:24 | ED.RN ---
0124: phone call made to Haseeb Thurman with no answer; phone call made to Robbie Thurman with no answer, voicemail left with family to obtain consent for treatment.
--- NOTE | 2023-04-09 01:50 | ED.RN ---
0152: Attempted to call Haseeb Thurman regarding patient continued refusal for medical treatment, no answer at this time. I left a voicemail for a call back.
--- NOTE | 2023-04-09 02:21 | ED.RN ---
0222: patient repositioned in bed with nurse Darryl Dee; he was asked if he was willing to allow us to obtain vital signs and he refused.
--- NOTE | 2023-04-09 07:21 | ED.RN ---
THIS RN IN TO TALK WITH PT. PT ASKS FOR A GLASS OF WATER WHICH WAS PROVIDED. PT STATES I CAN'T BELIEVE MY KIDS HAVE DON E THIS TO ME . PT REFUSES TO SAY WHAT OTHER THEN TO STATES THE BOYS FIGURED THIS OUT AND N OW HERE I AM . PT BEGINS CRYING. STATING MY LEGS LOOK BETTER THEN HAVE IN A LONG TIME THIS RN OFFERS PT BREAKFAST, PT AGREES. BREAKFAST ORDER PLACED. ALL OTHER MEDICAL TESTING REMAINS ON HOLD
--- NOTE | 2023-04-09 09:10 | CT_ITS ---
STUDY: CT BRAIN WITHOUT CONTRAST REASON FOR EXAM: Male, 77 years old. Altered mental status RADIATION DOSAGE (If Supplied By Facility): CTDIvol = ( 44.99 ) mGy, DLP = ( 897.35 ) mGycm TECHNIQUE: Transaxial CT imaging of the brain was performed without administration of intravenous contrast material. Individualized dose optimization techniques were used for this CT. COMPARISON: No relevant priors. FINDINGS: Normal soft tissue structures. Normal calvarium. There is mild cerebral atrophy with widening of the extra-axial spaces and ventricular dilatation. There are areas of decreased attenuation within the white matter tracts of the supratentorial brain, consistent with microvascular disease changes. Normal basal ganglia and thalami. Normal brainstem. Normal cerebellum. There is no intracranial hemorrhage. There are no findings of an acute ischemic infarction. Atherosclerotic calcification of the cavernous portions of the internal carotid arteries bilaterally. Normal visualized paranasal sinuses. CT/Brain/Head without Contrast IMPRESSION: Chronic involutional changes of the brain. Electronically Signed: Hao Joseph MD at 9:45 EST ,
--- NOTE | 2023-04-09 09:30 | ED.RN ---
PT TALKED WITH DR BELLAMY ON THE PHONE. AGREES TO BLOOD WORK AND SOME TESTING
--- NOTE | 2023-04-09 09:45 | RAD_ITS ---
STUDY: X-RAY - LEFT TIBIA AND FIBULA REASON FOR EXAM: Male, 77 years old. Pain / ? osteo TECHNIQUE: 2 view(s) of the tibia and fibula were obtained. COMPARISON: None. FINDINGS: Normal visualized tibia. Normal visualized fibula. There is non-specific soft tissue swelling. Vascular calcification. RAD/Tibia & Fibula 2 Views IMPRESSION: Nonspecific soft tissue swelling. Vascular calcification. Electronically Signed: Hao Joseph MD at 10:09 EST ,
--- NOTE | 2023-04-09 09:45 | RAD_ITS ---
STUDY: X-RAY - RIGHT TIBIA AND FIBULA REASON FOR EXAM: Male, 77 years old. PAIN TECHNIQUE: 3 view(s) of the tibia and fibula were obtained. COMPARISON: None. FINDINGS: Normal visualized tibia. Normal visualized fibula. There is non-specific soft tissue swelling. RAD/Tibia & Fibula 2 Views IMPRESSION: Nonspecific soft tissue swelling. Electronically Signed: Hao Joseph MD at 10:13 EST ,
--- NOTE | 2023-04-09 09:45 | RAD_ITS ---
STUDY: X-RAY - LEFT FOOT CLINICAL: Male, 77 years old. Pain / ? osteo TECHNIQUE: 3 view(s) of the foot. COMPARISON: None. FINDINGS: There is a plantar calcaneal spur. Normal visualized subtalar, talonavicular, calcaneocuboid, tarsal and tarsometatarsal articulations. Normal metatarsi. There is degenerative arthrosis of the metatarsophalangeal joint of the hallux . Normal tibial and fibular sesamoid bones. Normal interphalangeal joint of the great toe. Normal phalanges of the great toe. Normal second through fifth metatarsophalangeal joints. Normal interphalangeal joints and phalanges of the lesser toes. Diffuse soft tissue swelling more prominent along the dorsal aspect. RAD/Foot min 3 Views IMPRESSION: Soft tissue swelling. Plantar spur. Electronically Signed: Hao Joseph MD at 10:10 EST ,
--- NOTE | 2023-04-09 09:45 | RAD_ITS ---
STUDY: X-RAY CHEST REASON FOR EXAM: Male, 77 years old. Confusion, weakness TECHNIQUE: Single AP portable view of the chest. COMPARISON: None. FINDINGS: Elevation of the right hemidiaphragm. Blunting of both cause phrenic angles. Findings suggestive of a vascular congestion and mild CHF with superimposed atelectasis in the right lung. There is mild cardiac enlargement. Normal mediastinum and suhail. Normal visualized pulmonary arteries. Normal visualized aortic arch and descending thoracic aorta. There are diffuse degenerative changes of the visualized thoracic spine. Normal visualized ribs, clavicles, and shoulders. There is no demonstrated abnormality of the visualized soft tissue structures of the upper abdomen. RAD/Chest 1 View IMPRESSION: Findings suggestive of CHF with blunting of both costophrenic angles and atelectasis in the right hemithorax. Electronically Signed: Hao Joseph MD at 10:08 [facility] ,
--- NOTE | 2023-04-09 09:45 | RAD_ITS ---
STUDY: X-RAY - RIGHT FOOT CLINICAL: Male, 77 years old. PAIN TECHNIQUE: 3 view(s) of the foot. COMPARISON: None. FINDINGS: There is an enthesophyte involving the posterior superior calcaneus at the site of insertion of the Achilles tendon. Plantar spur. Normal visualized subtalar, talonavicular, calcaneocuboid, tarsal and tarsometatarsal articulations. There is a 7.4 mm x 5.4 mm hypodensity with overhanging edges along the medial aspect of the distal first metatarsal. This may represent changes secondary to gout. There is degenerative arthrosis of the metatarsophalangeal joint of the hallux . Normal tibial and fibular sesamoid bones. Normal interphalangeal joint of the great toe. Normal phalanges of the great toe. Normal second through fifth metatarsophalangeal joints. Normal interphalangeal joints and phalanges of the lesser toes. Diffuse soft tissue swelling more prominent in the dorsal aspect. RAD/Foot min 3 Views IMPRESSION: Soft tissue swelling. Questionable gout involving the distal portion of the first metatarsal. Plantar spurs. Electronically Signed: Hao Joseph MD at 10:13 EST ,
[2023-04-09 09:48] LABS: Absolute Lymphocyte Count 0.19 X10^3/uL (0.83-4.51); Basophil% 0.9 % (0-1); Eosinophil# 0.07 X10^3/uL; Eosinophils% 0.6 % (0-5); Hematocrit 48.3 % (40-54); Hemoglobin 16.2 g/dL (13.0-16.5); Lymphocyte # 0.19 X10^3/ul (0.83-4.51); Lymphocyte % 1.8 % (19-41); Mean Corp Hgb Conc 33.5 g/dL (32-36); Mean Corpuscular Volume 98.4 fL (80-94); Mean Platelet Vol. 12.4 fl (6.2-12.0); Monocyte# 0.45 X10^3/uL; Monocyte% 4.2 % (0-10); NRBC Flagged by Analyzer 0 % (0-5); Neutrophil # 9.96 X10^3/uL (2.7-7.7); Neutrophil % 91.9 % (47-70); POSITIVE DIFFERENTIAL YES; POSITIVE MORPHOLOGY YES; Platelet Count 121 K/mm3 (150-450); RBC Distribution Width CV 15.1 % (11.6-14.6); RBC Distribution Width SD 54.7 fl (35.1-43.9); Red Blood Count 4.91 M/mm3 (4.6-6.2); White Blood Count 10.8 K/mm3 (4.4-11.0)
[2023-04-09 09:49] LABS: Differential Indicated SCAN CRITERIA MET
[2023-04-09 09:59] LABS: BNP,B-Type NATRIURETIC PEPTIDE 1359.2 pg/mL (0-100)
[2023-04-09 10:12] LABS: Lactic Acid 3.7 mmol/L (0.4-1.9)
[2023-04-09 10:14] LABS: ALB/GLOB Ratio 0.6 RATIO (0.9-2.4); AST(SGOT) 27 U/L (15-37); Alanine Aminotransfer ALT/SGPT 20 U/L (16-61); Albumin, Serum 2.1 g/dL (3.2-5.0); Alkaline Phosphatase 69 U/L (45-117); Anion Gap 5 (5-15); BUN 58 mg/dL (7-18); BUN/Creat Ratio 53.7 RATIO (10-20); Calcium,Total 9.6 mg/dL (8.5-10.1); Chloride 100 mmol/L (98-107); Creatinine, Serum 1.08 mg/dL (0.70-1.30); EST Glomerular Filtration Rate 71 mL/min (>60); Est Glom Filt Rate - Afr Amer 86 mL/min (>60); Estimated Creatinine Clearance 66.79 ml/min; Globulin 3.7 g/dL (2.2-4.2); Glucose 89 mg/dL (74-106); Potassium 5.3 mmol/L (3.5-5.1); Protein, Total 5.8 g/dL (6.4-8.2); Sodium Level 130 mmol/L (136-145)
[2023-04-09 10:15] LABS: Anion Gap 6 (5-15); BUN 60 mg/dL (7-18); BUN/Creat Ratio 57.1 RATIO (10-20); Calcium,Total 9.2 mg/dL (8.5-10.1); Chloride 98 mmol/L (98-107); Creatinine, Serum 1.05 mg/dL (0.70-1.30); EST Glomerular Filtration Rate 73 mL/min (>60); Est Glom Filt Rate - Afr Amer 88 mL/min (>60); Glucose 80 mg/dL (74-106); Potassium 5.4 mmol/L (3.5-5.1); Sodium Level 129 mmol/L (136-145)
--- NOTE | 2023-04-09 10:15 | NURSING ---
LAB CALLED [facility] OF 3.7. DR SOUSA AWARE
[2023-04-09 10:16] LABS: Erythrocyte Sedimentation Rate 16 mm/hr (0-20)
[2023-04-09 10:24] LABS: Procalcitonin 1.48 ng/mL (0.00-0.09)
[2023-04-09] MEDS: dilTIAZem 25 MG/5 ML Vial 20 MG IV BOLUS (11:03)
[2023-04-09] MEDS: Piperacil/Tazobactam 3.375 GM in 0.9% Normal Saline (50mL MB+) 50 ML IV (11:11)
[2023-04-09] MEDS: Furosemide 40 MG/4 ML Vial IV ×3 (11:12→20:20)
[2023-04-09 11:17] LABS: Troponin-I HS 39 pg/mL (3.0-78.0)
[2023-04-09] MEDS: Diltiazem 125 MG in Dextrose 5%-Water (100mL Bag) 100 ML CONT INF (11:40)
[2023-04-09 12:03] LABS: Mucous, Urine 0 SEEN /hpf (<or=2+); Red Blood Cells-Urine 0 SEEN /hpf (0-5); Squamous Epithelial Cells - UA 0 SEEN /hpf (0-5)
[2023-04-09 12:17] LABS: Color, Urine Yellow (Yellow); Glucose, Dipstick Normal (Normal); Ketone-Dipstick 5 mg/dl (Negative); Leukocyte Esterase-Dipstick 25 /ul (Negative); Nitrite-Dipstick Positive (Negative); Occult Blood-Urine Negative /ul (Negative); Protein-Dipstick 15 mg/dl (Negative); Urine Clarity Sl. Cloudy (Clear); Urine Urobilinogen 4 mg/dl (Normal)
[2023-04-09 12:44] LABS: Urine Bilirubin Dipstick 1 mg/dL (Negative)
[2023-04-09 12:45] LABS: Bacteria 1+ /hpf (None Seen); Hyaline Cast 0-5 SEEN /lpf (0-5); White Blood Cells 0-5 SEEN /hpf (0-5)
--- OUTSIDE RECORDS SUMMARY | 2023-04-09 13:23 | XMS RPT_ITS | CCD ---
Author Name Unknown Address [address] [place] [address] Organization [facility] Care Team Providers Care Investigator Utility Bill Complaints Name Role Phone Genia Jackson MD Primary Care Provider [phone] GENIA JACKSON Primary Care Unavailable NIOCLE EAVNS Attending Unavailable NICOLE EVANS Attending Unavailable GENIA [...] Facility (6 sources) Spironolactone Drug Allergy 7 [facility] (5 sources) Amiodarone Drug Allergy 7 Dizziness [facility] (5 sources) apixaban Drug Allergy 2 [facility] (5 sources) carvedilol Drug Allergy 2 [facility] (5 sources) Digoxin And Related Drug Intolerance 2 [facility] Medications Current Medications Medication Drug Class(es) [...] 86 mm[Hg] Vineet Chen MD Work Phone: [facility] [employer] 09-16-2022 15:13-0400 Heart rate 123 /min Vineet Chen MD Work Phone: [facility] [employer] 09-16-2022 15:13-0400 Respiratory rate 18 /min Vineet Chen MD Work Phone: [facility] [employer] 09-16-2022 15:13-0400 SaO2% (BldA) [Mass fraction] 100 % Vineet Chen MD Work Phone: [facility] [employer] 09-16-2022 15:13-0400 Systolic blood pressure 108 mm[Hg] Vineet pearl MD Work Phone: [facility] [employer] 09-16-2022 12:37-0400 Body height 185.4 cm Vineet Chen MD Work Phone: [facility] [employer] 09-16-2022 12:37-0400 Body mass index (BMI) [Ratio] 23.09 kg/m2 Vineet Chen MD Work Phone: [facility] [employer] 09-16-2022 12:37-0400 Body weight 79.38 kg Vineet Chen MD Work Phone: [facility] [employer] 09-16-2022 12:33-0400 Body temperature 97.5 [degF] Vineet Chen MD Work Phone: [facility] [employer] 08-12-2022 13:59-0400 Body temperature 97 [degF] Nicole Evans DPM Work Phone: [facility] [employer] 08-12-2022 13:59-0400 Diastolic blood pressure 70 mm[Hg] Nicole Evans DPM Work Phone: [facility] [employer] 08-12-2022 13:59-0400 Heart rate 82 /min Nicole Evans DPM Work Phone: [facility] [employer] 08-12-2022 13:59-0400 Respiratory rate 17 /min Nicole vEans DPM Work Phone: [facility] [employer] 08-12-2022 13:59-0400 Systolic blood pressure 102 mm[Hg] Nicole Evans DPM Work Phone: [facility] [employer] 08-05-2022 13:46-0400 Diastolic blood pressure 42 mm[Hg] Nicole Evans DPM Work Phone: [facility] 08-05-2022 13:46-0400 Heart rate 144 /min Nicole Evans DPM Work Phone: [facility] 08-05-2022 13:46-0400 Systolic blood pressure 76 mm[Hg] Nicole Tirso DPM Work Phone: [facility] 08-05-2022 13:33-0400 Body temperature 97 [degF] Nicole Evans DPM Work Phone: [facility] Encounters Encounter Date Encounter Type Care Provider Facility Start: 09-16-2022 End: 09-16-2022 Evaluation and management of inpatient KAILA MURILLO [facility] Start: 09-16-2022 End: 09-16-2022 Emergency department patient visit [facility] Start: 09-16-2022 End: 09-16-2022 ambulatory [facility] Start: 09-16-2022 End: 09-16-2022 Evaluation and management of inpatient Vineet Chen MD Work Phone: [facility] ED Procedures Date Procedure Procedure Detail Performing [...] Activity Detail Author Start: 10-31-2022 Influenza vaccination [facility] Start: 08-19-2022 End: 08-19-2022 Patient encounter procedure 08/19/2022 1:30 PM EDT Appointment [facility] [address] [place] [phone] Nicole Evans DPM [address] [place] [address] [facility] Start: 08-18-2022 End: 08-18-2022 Patient encounter procedure [facility] Vascular Lab Start: 08-12-2022 End: 08-12-2022 Patient encounter procedure 08/12/2022 1:15 PM EDT Appointment [facility] [address] [place] [phone] Nicole Evans DPM [address] [place] [address] [facility] Start: 2012 Pneumococcal Vaccine: 65+ Years (1 - PCV) Pneumococcal Vaccine: 65+ Years (1 - PCV) [facility] Start: 1997 Zoster Vaccines (1 of 2) Zoster Vaccines (1 of 2) [facility] Start: 1966 DTaP/Tdap/Td Vaccines (1 - Tdap) DTaP/Tdap/Td Vaccines (1 - Tdap) [facility] Start: 1965 Diabetes mellitus screening Diabetes Screening [facility] Start: 1965 Hepatitis C screening Hepatitis C Screening [facility] Start: 1959 Depression Screening Depression Screening [facility] Start: 1954 DTaP/Tdap/Td Vaccines (1 - Tdap) DTaP/Tdap/Td Vaccines (1 - Tdap) [facility] Start: 1947 COVID-19 Vaccine (#1) COVID-19 Vaccine (#1) [facility] Start: 1947 Lipid panel Lipid Panel [facility] Start: 1947 Medicare Advantage Annual Wellness Visit (AWV) Medicare Advantage Annual Wellness Visit (AWV) [facility] Start: 1947 Screening for malignant neoplasm of colon [facility] Aerobic and Anaerobi c Culture with Stain Aerobic and Anaerobic Culture with Stain Microbiology Routine Peripheral vascular disease, unspecified (HCC) Venous insufficiency Leg edema 08/05/2022 2:25 PM EDT [facility] Bacteria identified in Unspecified specimen by Aerobe culture Culture, Aerobic Bacteria with Gram Stain Microbiology Routine Peripheral vascular disease, unspecified (HCC) Venous insufficiency Leg edema 08/05/2022 2:25 PM EDT [facility] Bacteria identified in Unspecified specimen by Anaerobe culture Anaerobic culture Microbiology Routine Peripheral vascular disease, unspecified (HCC) Venous insufficiency Leg edema 08/05/2022 2:25 PM EDT [facility] Dressing Order: Adap tic, Calcium alginate; Every other day; 4x4 gauze; Kerlex, Silk tape; Single layer tubigrip Dressing Order: Adaptic, Calcium alginate; Every other day; 4x4 gauze; Kerlex, Silk tape; Single layer tubigrip Wound Ostomy Routine Ordered: 08/05/2022 [facility] [employer] Work Phone: Immunizations Immunization Date Immunization Notes Care Provider Fa laceyty NEGATED: Highlighted row has not occurred!09-16-2022 tetanus toxoid, reduced diphtheria toxoid, and acellular pertussis vaccine, adsorbed Vineet Chen MD Work Phone: [facility] Payers Date Payer Category Payer Medicare [employer] MEDICARE ADVANTAGE [employer] MEDICARE [id number] 2022-Present [address] [address] [place] [address] Medicare HMO [id number] 2022 Medicare [id number] Social History Date Type Detail Facility Tobacco smoking status NHIS Never smoked tobacco [facility] Start: 08-05-2022 End: 08-12-2022 Alcohol intake Current non-drinker of alcohol (finding) [facility] Start: 08-05-2022 End: 08-12-2022 History of Social function [facility] Start: 08-05-2022 End: 08-12-2022 Tobacco use panel [facility] Start: 1945 Sex Assigned At Not on file [facility] Start: 08-05-2022 Gender identity Identifies as male gender (finding) [facility] Start: 07-26-2022 End: 09-16-2022 Exposure to SARS-CoV-2 (event) Not sure [facility] How often to you hav e a drink containing alcohol? Never [facility] How many standard dr inks containing alcohol do you have on a typical day? Patient does not drink [facility] Clinical Notes 08-05-2022 to 09-16-2022 Manuel [...] and treatment Manuel Morales RN 09/16/22 1604 [facility] 09-16-2022 Emergency departm ent Note Provider explained risk of leaving AMA, patient signed paper work for AMA, patient advised he may return any time for further eval and treatment Manuel Morales RN 09/16/22 1604 [facility] ED EMERGENCY DEPARTMENT ENCOUNTER Pt Name: Ryan [...] [address] Murillo from [facility] over the phone who accept the patient. [...] MD MARIA A Emergency Medicine Physician Acute [facility] Vineet Chen MD 09/16/22 1524 Vineet Chen MD 09/16/22 1547 Arrived via w/c from patient Dr owusu , A/0 x4, GCS 15, able to speak in complete sentences and provide own PMHX, patient hit head after fall, currently on ASA 81 mg daily, placed on monitor, continue to assess documented in this encounter [facility] 09-16-2022 Note Formatting of this n ote might be different from the original. HEAD OF MEASUREMENT & INSIGHTS called at 12:15 for a fall in [...] was done. Room air pulse ox 85%, [id number]. Pt states he has a afib hx and takes ASA daily. Pt at first wanted to leave and refuse tx, discussed head injury and blood thinners, that his pulse ox was low. Pt agreed to go to ER for eval. Pt assisted from floor to wheelchair, then taken to ER/triage. [facility] 09-16-2022 Note Formatting of this n ote might be different from the original. HEAD OF MEASUREMENT & INSIGHTS called at 12:15 for a fall in [...] was done. Room air pulse ox 85%, [id number]. Pt states he has a afib hx and takes ASA daily. Pt at first wanted to leave and refuse tx, discussed head injury and blood thinners, that his pulse ox was low. Pt agreed to go to ER for eval. Pt assisted from floor to wheelchair, then taken to ER/triage. [facility] 09-16-2022 Miscellaneous Notes Formattin g of this note might be different from the original. HEAD OF MEASUREMENT & INSIGHTS called at 12:15 for a fall in [...] was done. Room air pulse ox 85%, [id number]. Pt states he has a afib hx and takes ASA daily. Pt at first wanted to leave and refuse tx, discussed head injury and blood thinners, that his pulse ox was low. Pt agreed to go to ER for eval. Pt assisted from floor to wheelchair, then taken to ER/triage. documented in this encounter [facility] 09-16-2022 Emergency departm ent Triage note Arrived via w/c from patient Dr owusu , A/0 x4, GCS 15, able to speak in complete sentences and provide own PMHX, patient hit head after fall, currently on ASA 81 mg daily, placed on monitor, continue to assess [facility] 09-16-2022 Physician Emergen cy department Note [facility] ED EMERGENCY DEPARTMENT ENCOUNTER Pt Name: Ryan [...] [address] Murillo from [facility] over the phone who accept the patient. [...] MARIA A Emergency Medicine Physician Acute Care [facility] Vineet Chen MD 09/16/22 1524 Vineet Chen MD 09/16/22 1547 [facility] 08-12-2022 History of Presen t illness [...] (Active) Wound Image 08/12/22 131 Site Assessment Pale;[place];Red;[place] 08/12/22 1311 Wound Length (cm) 3 cm [...] (Active) Wound Image 08/12/22 131 Site Assessment Pale;[place] 08/12/22 1312 Wound Length (cm) 1.4 cm [...] (Active) Wound Image 08/12/22 1309 Site Assessment Edema;Pale;[place] 08/12/22 1309 Wound Length (cm) 19 cm [...] on cipro today. documented in this encounter [facility] 08-12-2022 Hospital Discharg e dave Tran RN - 08/12/2022 1:15 PM EDT Follow up with Dr. Evans in 1 week Edema/Swelling: Avoid standing for long periods of time, Elevate legs to the level of the heart or above for 30 minutes daily and/or when sitting, a frequency of: every day when sitting. 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 Cleansing: Okay to shower. Do [...] medication, please contact the wound center at [phone] or [phone]. [facility] documented in this encounter [facility] 08-05-2022 History of Presen t illness [...] Past Medical History: Diagnosis Date Atrial fibrillation ([facility]HCC) [facility] Hypertension Obesity Past Surgical History: Procedure Laterality [...] Dose Status aspirin 81 MG EC tablet [id number] Yes Take 81 mg by mouth. Historical Provider, Active cephalexin (Keflex) 500 MG capsule [id number] Take 500 mg by mouth 4 times daily. Historical Provider, Active furosemide (Lasix) 40 MG tablet [id number] Yes Take 40 mg by mouth. Historical Provider, Active spironolactone (Aldactone) 50 MG tablet [id number] Take 50 mg by mouth daily. Historical Provider, Active traZODone (Desyrel) 50 MG tablet [id number] Take 50 mg by mouth Nightly. Historical [...] reason before then. documented in this encounter [facility] 08-05-2022 History of Presen t illness [...] Dose Status aspirin 81 MG EC tablet [id number] Yes Take 81 mg by mouth. Historical Provider, Active cephalexin (Keflex) 500 MG capsule [id number] Take 500 mg by mouth 4 times daily. Historical Provider, Active furosemide (Lasix) 40 MG tablet [id number] Yes Take 40 mg by mouth. Historical Provider, Active spironolactone (Aldactone) 50 MG tablet [id number] Take 50 mg by mouth daily. Historical Provider, Active traZODone (Desyrel) 50 MG tablet [id number] Take 50 mg by mouth Nightly. Historical [...] reason before then. documented in this encounter [facility] 08-05-2022 Hospital Discharg e instructions Priyanka Espinoza RN - 08/05/2022 1:00 PM EDT Follow up with Dr. Evans in 1 week Edema/Swelling: Avoid standing for long periods of time, Elevate legs to the level of the heart or above for 30 minutes daily and/or when sitting, a frequency of: every day when sitting. 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 Cleansing: Okay to shower. Do [...] wound care visits documented in this encounter [facility] 08-05-2022 Hospital Discharg e instructions Priyanka Espinoza RN - 08/05/2022 1:00 PM EDT Follow up with Dr. Evans in 1 week Edema/Swelling: Avoid standing for long periods of time, Elevate legs to the level of the heart or above for 30 minutes daily and/or when sitting, a frequency of: every day when sitting. 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 Cleansing: Okay to shower. Do [...] wound care visits documented in this encounter [facility] 08-05-2022 Miscellaneous Notes Encounter addended by: Priyanka Espinoza RN on: 08/06/2022 9:10 AM Actions taken: Diagnosis association updated, Order list changed documented in this encounter [facility] 08-05-2022 Note Encounter addended b y: Priyanka Espinoza RN on: 08/06/2022 9:10 AM Actions taken: Diagnosis association updated, Order list changed [facility] Diagnosis Non-pressure chronic ulcer of [...] left lower leg [facility] Diagnosis Non-pressure chronic ulcer of [...] left lower leg [facility]* Diagnosis Atrial fibrillation with rapid ventricular response (CMS/HCC) (HCC)- Primary Atrial fibrillation with rapid ventricular response (CMS/HCC) (HCC) Closed head injury, initial encounter Open leg wound, unspecified laterality, initial encounter [facility]* Diagnosis Venous insufficiency (chronic) (peripheral) Unspecified venous (peripheral) insufficiency 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) [facility]* Diagnosis Venous insufficiency (chronic) (peripheral)- Primary Unspecified venous (peripheral) insufficiency 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) Venous insufficiency (chronic) (peripheral) Unspecified venous (peripheral) insufficiency 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) documented in this encounter [facility] Reason for Referral Specialty Diagnoses / Procedures Referred By Julian troncoso Referred To Contact Home Health Services Diagnoses Peripheral vascular disease, unspecified (HCC) Venous insufficiency Leg edema Procedures [place] OFFICE[facility]OUTPAT[facility] 60-74 MINUTES Nicole Evans DPM [address] [place] [address] Referral ID Status Reason Start Date Expiration Date Visits Requested Visits Authorized [id number] Pending Review Specialty Services Required 08/05/2022 02/01/2023 999 999 Specialty Diagnoses / Procedures Referred By Julian troncoso Referred To Contact Cardiology Diagnoses Leg edema Procedures Vascular US lower extremity venous insufficiency bilateral Nicole Evans DPM [address] [place] [address] Referral ID Status Reason Start Date Expiration Date Visits Requested Visits Authorized [id number] Pending Review Perform Procedure 08/05/2022 02/01/2023 1 1 Specialty Diagnoses / Procedures Referred By Contac t Referred To Contact Cardiology Diagnoses Peripheral vascular disease, unspecified (HCC) Procedures Vascular US lower extremity arterial PVR Nicole Evans DPM [address] [place] [address] Referral ID Status Reason Start Date Expiration Date Visits Requested Visits Authorized [id number] Pending Review Perform Procedure 08/05/2022 02/01/2023 1 1 Specialty Diagnoses / Procedures Referred By Contac t Referred To Contact Home Health Services / 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 Diagnoses Venous insufficiency 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) Procedures [place] OFFICE/OUTPATIENT [facility] HIGH MDM 60-74 MINUTES Nicole Evans DPM [address] [place] [address] [address] Referral ID Status Reason Start Date Expiration Date V isits Requested Visits Authorized [id number] Closed Specialty Services Required 08/06/2022 02/02/2023 999 999 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) Procedures Vascular US lower extremity arterial PVR Genia Jackson MD [address] [place] [address] Referral ID Status Reason Start Date Expiration Date V isits Requested Visits Authorized [id number] Closed Perform Procedure 09/11/2022 03/10/2023 1 1 [...] PVR Genia Jackson MD [address] [place] [address] Referral ID Status Reason Start Date Expiration Date V isits Requested Visits Authorized [id number] Closed Perform Procedure 09/11/2022 03/10/2023 1 1 Care Teams (unrecognized sec tion and content) Investigator Utility Bill Complaints Relationship Specialty Start Date End Date Genia Jackson MD [address] [place] [phone] PCP - General 04/02/16 Investigator Utility Bill Complaints Relationship Specialty Start Date End Date Genia Jackson MD [address] [place] [phone] PCP - General 04/02/16 Investigator Utility Bill Complaints Relationship Specialty Start Date End Date Genia Jackson MD [address] [place] [phone] PCP - General 04/02/16 Investigator Utility Bill Complaints Relationship Specialty Start Date End Date Genia Jackson MD [address] [place] [phone] PCP - General 04/02/16 Investigator Utility Bill Complaints Relationship Specialty Start Date End Date Genia Jackson MD [address] [place] [phone] PCP - General 04/02/16 Scheduled Active and [...] BE BASED ON THE PRIMARY CLINICAL RECORDS. [employer] provides no warranty or guarantee of the accuracy or completeness of information in this document.
--- NOTE | 2023-04-09 13:24 | ECHOD_ITS ---
Reason For Study: A. fib/flutter Procedure This was a 2D Doppler, Color Flow transthoracic echocardiogram. Exam performed portable in patient room. Left Ventricle Mildly dilated left ventricle. Mild concentric left ventricular hypertrophy. Severe global left ventricular systolic dysfunction. The left ventricular ejection fraction is 25 %. At least grade 2 diastolic dysfunction. Right Ventricle Normal RV size. Moderate global right ventricular systolic dysfunction. Atria There is moderate biatrial dilatation. Mitral Valve Severe (4+) posteriorly directed mitral valve insufficiency. Tricuspid Valve Moderately severe (3+) tricuspid valve insufficiency. Right ventricular systolic pressure estimated to be 54 mmHg. Aortic Valve Trisinus/trileaflet aortic valve. Aortic sclerosis, no stenosis. Pulmonic Valve The pulmonic valve is not well visualized. Great Vessels Normal sized aortic root. Pericardium/Pleural No pericardial effusion. MMode/2D Measurements & Calculations LVIDd: 5.8 cm IVSd: 0.77 cm Ao root diam: 3.1 cm LVIDs: 4.8 cm LVPWd: 1.2 cm RVDd: 4.6 cm FS: 17.2 % LAV(MOD-bp): 132.5 ml LVAd ap4: 43.6 cm2 LVAd ap2: 45.6 cm2 LAV(MOD-bp) Indexed: 65.3 ml/m2 LVLd ap4: 8.9 cm LVLd ap2: 9.3 cm LAV(MOD-sp2): 146.9 ml EDV(MOD-sp4): 178.7 ml EDV(MOD-sp2): 188.4 ml LAV(MOD-sp4): 114.5 ml EDV(sp4-el): 180.8 ml EDV(sp2-el): 189.2 ml LVAs ap4: 37.3 cm2 LVAs ap2: 39.8 cm2 LVLs ap4: 8.5 cm LVLs ap2: 8.9 cm ESV(MOD-sp4): 138.6 ml ESV(MOD-sp2): 149.2 ml ESV(sp4-el): 138.5 ml ESV(sp2-el): 151.3 ml EF(MOD-sp4): 22.5 % EF(MOD-sp2): 20.8 % EF(sp4-el): 23.4 % SV(MOD-sp4): 40.1 ml SV(MOD-sp2): 39.2 ml SV(sp4-el): 42.3 ml LA dimension(2D): 4.7 cm LA A4 area: 32.1 cm2 RA A4 area: 37.1 cm2 TAPSE: 1.5 cm Doppler Measurements & Calculations MV E max rinku: 101.2 cm/sec Lat Peak E' Rinku: 9.3 cm/sec Med Peak E' Rinku: 6.4 cm/sec E/E' lat: 10.9 E/E' med: 15.8 Ao V2 max: 106.1 cm/sec LV V1 max: 61.5 cm/sec PA V2 max: 62.6 cm/sec Ao max P.5 mmHg LV V1 max P.6 mmHg Ao V2 mean: 77.9 cm/sec LV V1 mean P.93 mmHg Ao mean P.7 mmHg LV V1 mean: 45.1 cm/sec Ao V2 VTI: 15.0 cm LV V1 VTI: 7.3 cm AV (velocity ratio): 0.49 TR max rinku: 337.6 cm/sec TR max P.6 mmHg ECHO/Echo Complete Interpretation Summary Mildly dilated left ventricle. Mild concentric left ventricular hypertrophy. At least grade 2 diastolic dysfunction The left ventricular ejection fraction is 20-25 %. Moderate global right ventricular systolic dysfunction. Severe (4+) posteriorly directed mitral valve insufficiency. Moderately severe (3+) tricuspid valve insufficiency. Right ventricular systolic pressure estimated to be 54 mmHg. Aortic sclerosis, no stenosis. Ordering Physician: Tl Man Referring Physician: Dario Jackson Performed By: Celestina Vera RDCS
--- NOTE | 2023-04-09 13:31 | HP.PCM.HOS_ITS ---
HPI - General General Date of Admission: 04/09/23 Date of Service: 04/09/23 Chief Complaint: Bilateral lower extremity swelling HPI Narrative STACI MC, is a 77 M brought to the emergency department by his sons on account of bilateral lower extremity swelling as well as chronic wounds. Patient has apparently refused care on multiple occasions and had threatened to sign out AGAINST MEDICAL ADVICE in the ED he was placed in the medical hold. The ED physician was able to get hold of patient's primary care physician who convinced patient to rescind his decision. Subsequent workup demonstrated A-fib with RVR as well as findings on chest x-ray suggestive of acute congestive heart failure. Decision was made to admit patient to a monitored bed for subsequent workup. COUNTS INCLUDE 234 BEDS AT THE [facility] Medical History Easy bruising History of atrial fibrillation History of cardioversion History of edema History of hypertension History of stress test Non-smoker Wears glasses Home Medications aspirin 81 mg tablet,delayed release 81 mg PO DAILY HEART HEALTH 11/01/21 [History Last Taken Unknown] furosemide 40 mg tablet 40 mg PO DAILY EDEMA 11/01/21 [History Last Taken Unknown] potassium chloride 20 mEq tablet,extended release 20 meq PO DAILY SUPPLEMENT 11/01/21 [History Last Taken Unknown] cephalexin 500 mg capsule 500 mg PO Q6H ANTIBIOTIC 04/09/23 [History Last Taken Unknown] spironolactone 50 mg tablet 50 mg PO DAILY BLOOD PRESSURE 04/09/23 [History Last Taken Unknown] trazodone 50 mg tablet 25 - 50 mg PO QHS PRN SLEEP 04/09/23 [History Last Taken Unknown] Allergy/AdvReac Type Severity Reaction Status Date / Time amiodarone Allergy Dizziness Verified 04/08/23 23:13 apixaban [From Eliquis] Allergy flu-like Verified 04/08/23 23:13 symptoms carvedilol Allergy sluggish/shabazz Verified 04/08/23 23:13 zy digoxin Allergy dizzy Verified 04/08/23 23:13 Family History Father Heart disease Hypertension Social History Smoking Status: Never smoker alcohol intake: never substance use type: does not use ROS ROS Narrative GENERAL: denies fever, chills, night sweats, HEENT: denies headache, sinus congestion, or drainage, dysphagia RESPIRATORY: cough, , shortness of breath, dyspnea on exertion CARDIAC: denies chest pain, palpitations, orthopnea, PND GASTROINTESTINAL: denies abdominal pain, nausea, vomiting, melena, GENITOURINARY: denies dysuria, urgency, frequency, heamaturia EXTREMITY: denies swelling MUSCULOSKELETAL: Bilateral lower extremity swelling NEUROLOGIC: denies focal numbness, weakness, tingling HEMATOLOGIC: denies easy bruising and/or hemorrhage INTEGUMENT: denies rashes PSYCHIATRIC: denies suicidal or homicidal ideation Vital Signs Vital Signs Vital Signs: 04/08/23 22:45 04/09/23 05:07 04/09/23 09:32 Temperature 97.9 F Temperature Source Temporal Pulse Rate Respiratory Rate 18 18 Blood Pressure Blood Pressure [BP] Blood Pressure Mean Blood Pressure Mean [BP] Blood Pressure Source [BP] Blood Pressure Position [BP] Blood Pressure Location [BP] Pulse Ox Oxygen Delivery Method 04/09/23 10:21 04/09/23 11:19 04/09/23 11:34 Temperature 97.6 F L Temperature Source Temporal Pulse Rate 160 H 118 H 120 H Respiratory Rate 18 18 Blood Pressure 209/109 H 164/120 H 167/125 H Blood Pressure [BP] Blood Pressure Mean 142 134 139 Blood Pressure Mean [BP] Blood Pressure Source [BP] Blood Pressure Position [BP] Blood Pressure Location [BP] Pulse Ox 94 96 96 Oxygen Delivery Method Room Air 04/09/23 11:40 04/09/23 12:22 04/09/23 12:39 Temperature 97.6 F L 97.1 F L Temperature Source Oral Oral Pulse Rate 125 H 132 H 140 H Respiratory Rate 20 H 14 16 Blood Pressure 167/125 H Blood Pressure [BP] 99/75 119/60 Blood Pressure Mean 139 Blood Pressure Mean [BP] 83 79 Blood Pressure Source [BP] Monitor Monitor Blood Pressure Position [BP] Semi-Fowlers Semi-Fowlers Blood Pressure Location [BP] Left Arm Left Arm Pulse Ox 90 91 Oxygen Delivery Method Room Air Room Air 04/09/23 12:46 04/09/23 12:59 04/09/23 13:09 Temperature Temperature Source Pulse Rate 145 H 132 H 133 H Respiratory Rate 21 H 18 Blood Pressure 119/60 108/90 H 97/69 Blood Pressure [BP] Blood Pressure Mean 79 96 78 Blood Pressure Mean [BP] Blood Pressure Source [BP] Blood Pressure Position [BP] Blood Pressure Location [BP] Pulse Ox Oxygen Delivery Method Weight Weight: 81 kg Body Mass Index (BMI) 23.6 Physical Exam Narrative GENERAL: cooperative HEENT: Atraumatic; normocephalic EYES; Anicteric, Normal Conjunctiva NECK; supple, normal thyroid, RESPIRATORY: Diminished to auscultation CARDIOVASCULAR: Regular S1 S2, GI: soft, normoactive bowel sounds, : No Renal angle tenderness; EXTREMITIES: Bipedal chronic stasis dermatitis with cyanosis MUSCULOSKELETAL: no muscle wasting NEURO: Awake; no lateralizing signs. SKIN: No Rash PSYCH; Flat affect Results Lab / Micro Data 04/09/23 09:25 04/09/23 09:25 Labs: Laboratory Results - last 24 hr 04/09/23 09:25: WBC 10.8, RBC 4.91, Hgb 16.2, Hct 48.3, MCV 98.4 H, MCH 33.0 H, MCHC 33.5, RDW Std Deviation 54.7 H, RDW Coeff of Kym 15.1 H, Plt Count 121 L, MPV 12.4 H, Immature Gran % (Auto) 0.600, Neut % (Auto) 91.9 H, Lymph % (Auto) 1.8 L, [place] % (Auto) 4.2, Eos % (Auto) 0.6, Baso % (Auto) 0.9, Absolute Neuts (auto) 10.0 H, Absolute Lymphs (auto) 0.19 L, Nucleated RBC % 0, Differential Comment COMMENT, ESR 16, Sodium 129 L 04/09/23 09:25: Sodium 130 L, Potassium 5.4 H 04/09/23 09:25: Potassium 5.3 H, Chloride 98 04/09/23 09:25: Chloride 100, Carbon Dioxide 25.0 04/09/23 09:25: Carbon Dioxide 25.0, Anion Gap 6 04/09/23 09:25: Anion Gap 5, BUN 60 H 04/09/23 09:25: BUN 58 H, Creatinine 1.05 04/09/23 09:25: Creatinine 1.08, Estim Creat Clear Calc 68.70 04/09/23 09:25: Estim Creat Clear Calc 66.79, Est GFR (MDRD) Af Amer 88 04/09/23 09:25: Est GFR (MDRD) Af Amer 86, Est GFR (MDRD) Non-Af 73 04/09/23 09:25: Est GFR (MDRD) Non-Af 71, BUN/Creatinine Ratio 57.1 H 04/09/23 09:25: BUN/Creatinine Ratio 53.7 H, Glucose 80 04/09/23 09:25: Glucose 89, Lactic Acid 3.7 H*, Calcium 9.2 04/09/23 09:25: Calcium 9.6, Total Bilirubin 2.30 H, AST 27, ALT 20, Alkaline Phosphatase 69, Troponin I High Sens 39, C-React Prot Ext Range 242.00 H, B- Natriuretic Peptide 1359.2 H, Total Protein 5.8 L, Albumin 2.1 L, Globulin 3.7, Albumin/Globulin Ratio 0.6 L, Procalcitonin 1.48 H, TSH 2.20 04/09/23 11:53: Urine Color Yellow, Urine Clarity Sl. Cloudy, Urine pH 5.0, Ur Specific Mitchell 1.020, Urine Protein 15 H, Urine Glucose (UA) Normal, Urine K etones 5 H, Urine Occult Blood Negative, Urine Nitrite Positive H, Urine Bilirubin 1 H, Urine Urobilinogen 4 H, Ur Leukocyte Esterase 25 H, Urine RBC 0 SEEN, Urine WBC 0-5 SEEN, Ur Squamous Epith Cells 0 SEEN, Urine Bacteria 1+, Hyaline Casts 0-5 SEEN, Urine Mucus 0 SEEN Imaging Radiology Impression Brain CT 04/09/23 09:10 IMPRESSION: Chronic involutional changes of the brain. Electronically Signed: Hao Joseph MD at 9:45 EST , Chest X-Ray 04/09/23 09:45 IMPRESSION: Findings suggestive of CHF with blunting of both costophrenic angles and atelectasis in the right hemithorax. Electronically Signed: Hao Joseph MD at 10:08 EST , Foot X-Ray 04/09/23 09:45 IMPRESSION: Soft tissue swelling. Plantar spur. Electronically Signed: Hao Joseph MD at 10:10 EST , Foot X-Ray 04/09/23 09:45 IMPRESSION: Soft tissue swelling. Questionable gout involving the distal portion of the first metatarsal. Plantar spurs. Electronically Signed: Hao Joseph MD at 10:13 EST Reading Location ID and State: [facility] / [place] , Service support , Tibia/Fibula X-Ray 04/09/23 09:45 IMPRESSION: Nonspecific soft tissue swelling. Vascular calcification. Electronically Signed: Hao Joseph MD at 10:09 EST Reading Location ID and State: [facility] / [place] , Service support , Tibia/Fibula X-Ray 04/09/23 09:45 IMPRESSION: Nonspecific soft tissue swelling. Electronically Signed: Hao Joseph MD at 10:13 EST Reading Location ID and State: [facility] / [place] , Service support , Assessment & Plan Assessment/Plan (1) Acute decompensated heart failure: (2) Hypertensive urgency: PLAN: Plan Patient is a 77-year-old gentleman presenting with bipedal edema with chronic wounds. Found to be in A-fib with RVR. Admitted to a monitored bed for further management 1. Paroxysmal A-fib with RVR ? Patient currently not on any rate controlling agent. Has history of cardioversion in the past. Started on Cardizem drip as well as systemic anticoagulation. Admitted to monitored bed for further management. As part of his management ordered TSH serial cardiac enzymes D-dimer BNP as well as 2D echo 2. Acute congestive heart failure (unspecified) ? Patient admitted to a monitored bed managed with strict input and output, da sadie weight, fluid restriction as well as IV diuretics echo ordered for EF assessment 3. Elevated D-dimer ? Ordered CTA of the chest as well as bilateral venous duplex. Patient is currently on therapeutic Lovenox pending results of above 4. Chronic bilateral lower extremity stasis dermatitis ? Consult placed wound care nurse for dressing changes 5. Acute hypertensive emergency ? Patient systolic blood pressure on admission was greater than 200. He also had evidence of endorgan damage. Patient responded to initial antihypertensive treatment started in the ED. Ordered hydralazine as needed for systolic blood pressure greater than 160 5. Lactic acidosis ? Do suspect ischemia from hypoperfusion. Patient was noted to have cyanotic lower extremities. Ordered arterial duplex. Patient currently on systemic anticoagulation. If there is evidence of peripheral arterial disease plan is to consult vascular surgery 7. Abnormal urinalysis ? With positive urine nitrite as well as leukocyte esterase patient started on ceftriaxone cultures sent 8. Hyponatremia ? Suspected to be secondary to hypervolemic hyponatremia do expect improvement with diuresis 9. Mild hyperkalemia ? Repeat labs ordered for monitoring 10. DVT prophylaxis ? Patient is on systemic anticoagulation Time spent in the patient's overall evaluation,decision-making process, review of diagnostic data, adjustment of management, discussion with other providers, nursing nursing and ancillary staff involved in patient's care documentation, 80 Minutes Charges/Coding Visit Charges Inpatient E&M: 09025 Init Hosp L3
[2023-04-09 13:35] LABS: Reflex Lactate? Y
[2023-04-09 14:42] LABS: Troponin-I HS 35 pg/mL (3.0-78.0)
[2023-04-09 14:43] LABS: D-Dimer Quantitative (DVT/PE) > 20.00 FEU/ug/m (0.27-0.49)
--- NOTE | 2023-04-09 14:53 | CT_ITS ---
We are attempting to reach an attending provider to discuss findings. An addendum with communication details will be sent when the communication is complete. STUDY: CTA CHEST REASON FOR EXAM: Male, 77 years old. dimer RADIATION DOSAGE (If Supplied By Facility): CTDIvol = ( 8.44 ) mGy, DLP = ( 238.57 ) mGycm TECHNIQUE: The examination was performed with the intravenous administration of IV 100mL Isovue-370. Post-processing of the angiographic images was performed, with multiplanar reformation and 3D reconstruction. Individualized dose optimization techniques were used for this CT. COMPARISON: None. FINDINGS: Normal enhancement of the main pulmonary artery and right and left pulmonary arteries. Normal enhancement of the bilateral peripheral pulmonary arteries. There are multiple intraluminal clots seen within the segmental branches of the left upper lobe and right upper lobe.. Multiple clots within subsegmental branches of the left lower lobe and right lower lobe.. There is no saddle embolus observed however there are findings suggestive of right ventricular strain Atherosclerotic changes of the aorta without evidence for aneurysm. There is no demonstrated aortic dissection. Heart is enlarged and there is multivessel coronary artery calcification. There is marked enlargement of the right atrial chamber and mildly enlarged left atrial chamber. Normal mediastinum. Normal hilar regions. Normal visualized trachea and bronchi. The lungs are well expanded. Mild interstitial thickening and subtle groundglass opacity possibly representing mild pulmonary interstitial edema. There is a large right pleural effusion with consolidation of the dependent portions of both the right upper and lower lobes. There is a moderate-sized effusion on the left with mild atelectasis at left base. Normal chest wall structures. Dorsal spine demonstrates degenerative change Diffuse mesenteric edema and ascites within the upper abdomen as well as edematous changes in the subcutaneous fat consistent with nonspecific anasarca likely due to right heart failure. Multiple calcified gallstones are noted without evidence for acute cholecystitis.. CT/CTA Chest W/WO Contrast IMPRESSION: Multiple bilateral pulmonary emboli involving both upper and lower lobes.. No evidence for saddle embolus however there are findings suggestive of right-sided heart failure as well as right ventricular strain. Bilateral effusions larger on the right with consolidation of the dependent portion of both lungs Cannot exclude coexisting pulmonary infarcts. Electronically Signed: Devendra Weller MD at 18:28 EST ,
--- NOTE | 2023-04-09 14:53 | VDLE_ITS ---
Reason For Study: Elevated D Dimer RIGHT LEFT CFV is compressible, spontaneous, and GSV is normal. demonstrates pulsatile venous flow. CFV is compressible, spontaneous, and Acute deep vein thrombosis is noted in the demonstrates pulsatile venous flow. SFJ. It is dilated and NONCOMPRESSIBLE. Acute deep vein thrombosis is noted in the GSV is dilated and NONCOMPRESSIBLE throughout distal FV. It is dilated and NONCOMPRESSIBLE. and thrombus extends into the deep system at the SFJ. Acute deep vein thrombosis is noted in the Acute deep vein thrombosis is noted in the DEEP FEMORAL V. It is dilated and FV. It is dilated and NONCOMPRESSIBLE. NONCOMPRESSIBLE. Acute deep vein thrombosis is noted in the Acute deep vein thrombosis is noted in the POP V. It is dilated and NONCOMPRESSIBLE. POP V. It is dilated and NONCOMPRESSIBLE. Acute deep vein thrombosis is noted in the Acute deep vein thrombosis is noted in the Gastrocnemius V. It is dilated and T/P Trunk. It is dilated and NONCOMPRESSIBLE. NONCOMPRESSIBLE. Acute deep vein thrombosis is noted in the Acute deep vein thrombosis is noted in the PTV. It is dilated and NONCOMPRESSIBLE. Gastrocnemius V. It is dilated and NONCOMPRESSIBLE. UNABLE TO VISUALIZE LI V UNABLE TO VISUALIZE PTV AND IL V. Superficial vein thrombosis is noted in the SSV. It is dilated and NONCOMPRESSIBLE. Procedure This is a venous duplex using B-mode, color flow and spectral Doppler. Exam performed portable in patient room. Limited views were obtained. A preliminary report was called and/or faxed to [employer]/ [employer] and [employer]. VL/Venous Duplex US - Jean Pierre Extrem Interpretation Summary Acute deep vein thrombosis is noted in the right femoral vein, saphenofemoral j unction, popliteal vein, gastrocnemius vein, posterior tibial vein Acute superficial vein thrombosis noted in the right great saphenous vein, smal l saphenous vein Acute deep vein thrombosis is noted in the left femoral vein, profunda femoral vein, popliteal vein, tibioperoneal trunk vein, gastrocnemius vein. Ordering Physician: Tl Man Referring Physician: Dario Jackson Performed By: Andrei Gonsalves RVT
--- NOTE | 2023-04-09 15:01 | WOUNDNOTE ---
wound photo: right lower leg
--- NOTE | 2023-04-09 15:02 | WOUNDNOTE ---
wound photo: right lower leg/foot
--- NOTE | 2023-04-09 15:03 | WOUNDNOTE ---
skin photo: right foot
--- NOTE | 2023-04-09 15:04 | WOUNDNOTE ---
wound photo: left lower leg
--- NOTE | 2023-04-09 15:04 | WOUNDNOTE ---
wound photo: left foot
--- NOTE | 2023-04-09 15:05 | WOUNDNOTE ---
skin photo: left foot
[2023-04-09 16:03] LABS: M R Staph aureus DNA By PCR Negative (Negative); Probe Check PASS; Specimen Processing Control PASS; Staph aureus DNA By PCR NEGATIVE (Negative)
[2023-04-09 16:35] LABS: Troponin-I HS 43 pg/mL (3.0-78.0)
[2023-04-09] MEDS: Ceftriaxone 1 GM/50 ML BAG IV (17:45)
[2023-04-09 19:48] LABS: Troponin-I HS 52 pg/mL (3.0-78.0)
[2023-04-09] MEDS: 0.9% Saline Lock 10 ML Syringe IV (20:19)
[2023-04-09] MEDS: Diltiazem 125 MG in Dextrose 5%-Water (100mL Bag) 100 ML 15 MG CONT INF (20:37)
[2023-04-09] MEDS: Haloperidol Lactate 5 MG/ML Vial 2 MG IM (22:21)
[2023-04-10] VITALS (20 sets, daily range): BP systolic 86–177; BP diastolic 58–164; PULSE 97–141; RESP 15–26; TEMP 36.8–37.2; O2SAT 91–99; BMI 22.7
[2023-04-10] MEDS: 0.9% Saline Lock 10 ML Syringe IV ×2 (02:44→05:10)
[2023-04-10] MEDS: Metoprolol Tartrate 5 MG/5 ML Vial IV (02:44)
--- OUTSIDE RECORDS SUMMARY | 2023-04-10 04:56 | XMS RPT_ITS | CCD ---
Author Name Unknown Address [address] [place] [address] Organization [facility] Care Team Providers Care Inner Tube Tuber Machine Operator Name Role Phone Genia Jackson MD Primary Care Provider GENIA JACKSON Primary Care Unavailable NICOLE EVANS [...] Allergy Type Date of Onset Reaction(s) Facility (7 sources) Spironolactone Drug Allergy 7 [facility] (6 sources) Amiodarone Drug Allergy 7 Dizziness [facility] (6 sources) apixaban Drug Allergy 2 [facility] (6 sources) carvedilol Drug Allergy 2 [facility] (6 sources) Digoxin And Related Drug Intolerance 2 [facility] Medications Current Medications Medication Drug Class(es) Dates Sig (Normalized) Sig (Original) aspirin 81 mg delayed release oral tablet (10 sources) Platelet Aggregation Inhibitor, Nonsteroidal Anti-inflammatory Drug [...] 08/22/2022 Active furosemide 40 mg oral tablet (10 sources) Loop Diuretic Start: 05-23-2021 furosemide (Lasix) 40 MG tablet Take 40 mg by mouth. 0 05/23/2021 Active spironolactone 50 mg oral tablet (10 sources) Aldosterone Antagonist Start: 06-18-2022 take 1 tablet by mouth once daily spironolactone (Aldactone) 50 MG tablet Take 50 mg by mouth daily. 0 06/18/2022 Active traZODone hydrochloride 50 mg oral tablet (10 sources) Serotonin Reuptake Inhibitor Start: 06-18-2022 take [...] Date Documented Da te Episodic/Chronic Cardiac dysrhythmias (12 sources) Atrial fibrillation with rapid ventricular response; [...] 86 mm[Hg] Vineet Chen MD Work Phone: [facility] [employer] 09-16-2022 15:13-0400 Heart rate 123 /min Vineet Chen MD Work Phone: [facility] [employer] 09-16-2022 15:13-0400 Respiratory rate 18 /min Vineet Chen MD Work Phone: [facility] [employer] 09-16-2022 15:13-0400 SaO2% (BldA) [Mass fraction] 100 % Vineet Chen MD Work Phone: [facility] [employer] 09-16-2022 15:13-0400 Systolic blood pressure 108 mm[Hg] Vineet pearl MD Work Phone: [facility] [employer] 09-16-2022 12:37-0400 Body height 185.4 cm Vineet Chen MD Work Phone: [facility] [employer] 09-16-2022 12:37-0400 Body mass index (BMI) [Ratio] 23.09 kg/m2 Vineet Chen MD Work Phone: [facility] [employer] 09-16-2022 12:37-0400 Body weight 79.38 kg Vineet Cehn MD Work Phone: [facility] [employer] 09-16-2022 12:33-0400 Body temperature 97.5 [degF] Vineet Chen MD Work Phone: [facility] [employer] 08-12-2022 13:59-0400 Body temperature 97 [degF] Nicole Evans DPM Work Phone: [facility] [employer] 08-12-2022 13:59-0400 Diastolic blood pressure 70 mm[Hg] Nicole Tirso DPM Work Phone: [facility] [employer] 08-12-2022 13:59-0400 Heart rate 82 /min Nicole Evans DPM Work Phone: [facility] [employer] 08-12-2022 13:59-0400 Respiratory rate 17 /min Nicole Evans DPM Work Phone: [facility] [employer] 08-12-2022 13:59-0400 Systolic blood pressure 102 mm[Hg] Nicole Evans DPM Work Phone: [facility] [employer] 08-05-2022 13:46-0400 Diastolic blood pressure 42 mm[Hg] Nicole Evans DPM Work Phone: [facility] [employer] 08-05-2022 13:46-0400 Heart rate 144 /min Nicole Evans DPM Work Phone: [facility] [employer] 08-05-2022 13:46-0400 Systolic blood pressure 76 mm[Hg] Nicole Evans DPM Work Phone: [facility] [employer] 08-05-2022 13:33-0400 Body temperature 97 [degF] Nicole Evans DPM Work Phone: [facility] Encounters Encounter Date Encounter Type Care Provider Facility Start: 04-09-2023 Telephone encounter Genia Jackson MD Work Phone: [facility] Clinical Communication Procedures Date Procedure Procedure Detail Performing Clinician [...] 09-16-2022 Non-invasive physiol ogic study extremity 3 levls Genia Jackson MD Work Phone: Start: 08-12-2022 Debridement subcutan eous tissue 20 sq cm/< Nicole Evans DPM Work Phone: Start: 08-05-2022 Cul bact xcpt urine blood/stool aerobic isol Nicole Evans DPTristian Work Phone: Start: 08-05-2022 Debridement subcutan eous tissue 20 sq cm/< Nicole Evans DPM Work Phone: Plan of Treatment Date Care Activity Detail Author Start: 10-31-2022 Influenza vaccination [facility] Start: 08-19-2022 End: 08-19-2022 Patient encounter procedure 08/19/2022 1:30 PM EDT Appointment [facility] [address] [place] [address] Nicole Evans DPM [address] [place] [address] [facility] Start: 08-18-2022 End: 08-18-2022 Patient encounter procedure [facility] Vascular Lab Start: 08-12-2022 End: 08-12-2022 Patient encounter procedure 08/12/2022 1:15 PM EDT Appointment [facility] [address] [place] [address] Nicole Evans DPM [address] [place] [address] [facility] Start: 2012 Pneumococcal Vaccine: 65+ Years (1 - PCV) Pneumococcal Vaccine: 65+ Years (1 - PCV) [facility] Start: 2012 Pneumococcal Vaccine: 65+ Years (1 of 1 - PCV) Pneumococcal Vaccine: 65+ Years (1 of 1 - PCV) [facility] Start: 2007 RSV Immunization aged 60 or older (1 - 1-dose 60+ series) RSV Immunization aged 60 or older (1 - 1-dose 60+ series) [facility] Start: 1997 Zoster Vaccines (1 of 2) Zoster Vaccines (1 of 2) [facility] Start: 1966 DTaP/Tdap/Td Vaccines (1 - Tdap) DTaP/Tdap/Td Vaccines (1 - Tdap) [facility] Start: 1965 Diabetes mellitus screening Diabetes Screening [facility] Start: 1965 Hepatitis C screening Hepatitis C Screening [facility] Start: 1959 Depression Screening Depression Screening [facility] Start: 1954 DTaP/Tdap/Td Vaccines (1 - Tdap) DTaP/Tdap/Td Vaccines (1 - Tdap) [facility] Start: 1947 COVID-19 Vaccine (#1) COVID-19 Vaccine (#1) [facility] Start: 1947 Lipid panel Lipid Panel [facility] Start: 1947 Medicare Advantage Annual Wellness Visit (AWV) Medicare Advantage Annual Wellness Visit (AWV) [facility] Start: 1945 Screening for malignant neoplasm of colon [facility] Aerobic and Anaerobi c Culture with Stain Aerobic and Anaerobic Culture with Stain Microbiology Routine Peripheral vascular disease, unspecified (HCC) Venous insufficiency Leg edema 08/05/2022 2:25 PM EDT [facility] Bacteria identified in Unspecified specimen by Aerobe culture Culture, Aerobic Bacteria with Gram Stain Microbiology Routine Peripheral vascular disease, unspecified (HCC) Venous insufficiency Leg edema 08/05/2022 2:25 PM EDT [facility] Bacteria identified in Unspecified specimen by Anaerobe culture Anaerobic culture Microbiology Routine Peripheral vascular disease, unspecified (HCC) Venous insufficiency Leg edema 08/05/2022 2:25 PM EDT [facility] Dressing Order: Adap tic, Calcium alginate; Every other day; 4x4 gauze; Kerlex, Silk tape; Single layer tubigrip Dressing Order: Adaptic, Calcium alginate; Every other day; 4x4 gauze; Kerlex, Silk tape; Single layer tubigrip Wound Ostomy Routine Ordered: 08/05/2022 [facility] Work Phone: Immunizations Immunization Date Immunization Notes Care Provider Alondra gutierrez NEGATED: Highlighted row has not occurred!09-16-2022 tetanus toxoid, reduced diphtheria toxoid, and acellular pertussis vaccine, adsorbed Vineet Chen MD Work Phone: [facility] [employer] Payers Date Payer Category Payer Medicare [employer] MEDICARE ADVANTAGE [employer] MEDICARE [id number] 2022-Present [address] [address] [place] [address] Medicare HMO [id number] 2022 Medicare [id number] Social History Date Type Detail Facility Tobacco smoking status NHIS Never smoked tobacco [facility] Start: 08-05-2022 End: 08-12-2022 Alcohol intake Current non-drinker of alcohol (finding) [facility] Start: 08-05-2022 End: 08-12-2022 History of Social function [facility] Start: 08-05-2022 End: 08-12-2022 Tobacco use panel [facility] Start: 1945 Sex Assigned At Not on file [facility] Start: 08-05-2022 Gender identity Identifies as male gender (finding) [facility] Start: 07-26-2022 End: 09-16-2022 Exposure to SARS-CoV-2 (event) Not sure [facility] How often to you hav e a drink containing alcohol? Never [facility] How many standard dr inks containing alcohol do you have on a typical day? Patient does not drink [facility] Clinical Notes 08-05-2022 to 04-09-2023 Telephone Encounter - Milady Seay - 04/09/2023 7:45 AM ESTTelephone Encounter - Milady Seay - 04/09/2023 7:45 AM Jessica Morales RN - 09/16/2022 4:02 PM EDTPatient Instructions Note Date & Type Note Facility 04-09-2023 Telephone encount er Note Name of caller requesting altagracia Gonzalez Phone Number of caller: [phone] Facility requesting page: [facility] ; Dr. Joby Mcnulty Reason for Page: Doctor needs to touch base with Dr. Jackson Provider paged: Dr. Jackson Patient Practice Name of paged provider: [facility] Ean Page Placed to #: Secure Chart Time Page was sent or provider contacted: 7:55 am Page Content: Dr. Joby Mcnulty would like to speak to Dr. Jackson to touch base. The patient is currently at [facility]. Please call Lisa who is calling on behalf of Dr. Mcnulty at [phone] to advise. [facility] 04-09-2023 Miscellaneous Notes Formattin g of this note might be different from the original. Name of caller requesting page Lisa Phone Number of caller: [phone] Facility requesting page: [facility] ; Dr. Joby Mcnulty Reason for Page: Doctor needs to touch base with Dr. Jackson Provider paged: Dr. Jackson Patient Practice Name of paged provider: [facility] Ean Page Placed to #: Secure Chart Time Page was sent or provider contacted: 7:55 am Page Content: Dr. Joby Mcnulty would like to speak to Dr. Jackson to touch base. The patient is currently at [facility]. Please call Lisa who is calling on behalf of Dr. Mcnulty at [phone] to advise. documented in this encounter [facility] 09-16-2022 Emergency departm ent Note Provider explained risk of leaving AMA, patient signed paper work for AMA, patient advised he may return any time for further eval and treatment Manuel Morales RN 09/16/22 1604 [facility] 09-16-2022 Emergency departm ent Note Provider explained risk of leaving AMA, patient signed paper work for AMA, patient advised he may return any time for further eval and treatment Manuel Morales RN 09/16/22 1604 [facility] ED EMERGENCY DEPARTMENT ENCOUNTER Pt Name: Ryan Thurman Birthdate 1945 Date of evaluation: 09/16/2022 Provider: [...] for the entirety of this encounter. Ryan Thurman is a 77 y.o. male who presents [...] everywhere. ED Course as of 09/16/22 1547 e Sep 16, 2022 1328 CBC auto differential(!) Overall normal including no leukocytosis and normal hemoglobin [JACKSON] 1335 Blood pressure is improved as the IV fluid bolus is nearing completion. Considered ordering metoprolol IV given the patient had an ejection fraction of 51% in 2014 and may have heart failure now however [...] [address] Murillo from [facility] over the phone who accept the [...] MD MARIA A Emergency Medicine Physician [facility] Vineet Chen MD 09/16/22 1524 Vineet Chen MD 09/16/22 1547 Arrived via w/c from patient Dr owusu , A/0 x4, GCS 15, able to speak in complete sentences and provide own PMHX, patient hit head after fall, currently on ASA 81 mg daily, placed on monitor, continue to assess documented in this encounter [facility] 09-16-2022 Note Formatting of this n ote might be different from the original. PROGRAM DIRECTOR/AIR PERSONALITY called at 12:15 for a fall in [...] was done. Room air pulse ox 85%, [id number]. Pt states he has a afib hx and takes ASA daily. Pt at first wanted to leave and refuse tx, discussed head injury and blood thinners, that his pulse ox was low. Pt agreed to go to ER for eval. Pt assisted from floor to wheelchair, then taken to ER/triage. [facility] 09-16-2022 Note Formatting of this n ote might be different from the original. PROGRAM DIRECTOR/AIR PERSONALITY called at 12:15 for a fall in [...] was done. Room air pulse ox 85%, [id number]. Pt states he has a afib hx and takes ASA daily. Pt at first wanted to leave and refuse tx, discussed head injury and blood thinners, that his pulse ox was low. Pt agreed to go to ER for eval. Pt assisted from floor to wheelchair, then taken to ER/triage. [facility] 09-16-2022 Miscellaneous Notes Formattin g of this note might be different from the original. PROGRAM DIRECTOR/AIR PERSONALITY called at 12:15 for a fall in [...] was done. Room air pulse ox 85%, [id number]. Pt states he has a afib hx and takes ASA daily. Pt at first wanted to leave and refuse tx, discussed head injury and blood thinners, that his pulse ox was low. Pt agreed to go to ER for eval. Pt assisted from floor to wheelchair, then taken to ER/triage. documented in this encounter [facility] 09-16-2022 Emergency departm ent Triage note Arrived via w/c from patient Dr owusu , A/0 x4, GCS 15, able to speak in complete sentences and provide own PMHX, patient hit head after fall, currently on ASA 81 mg daily, placed on monitor, continue to assess [facility] 09-16-2022 Physician Emergen cy department Note [facility] ED EMERGENCY DEPARTMENT ENCOUNTER Pt Name: Ryan Thurman Birthdate 1945 Date of evaluation: 09/16/2022 Provider: [...] for the entirety of this encounter. Ryan Thurman is a 77 y.o. male who presents [...] [address] Murillo from [facility] over the phone who accept the [...] Chen MD MARIA A Emergency Medicine Physician [facility] Vineet Chen MD 09/16/22 1524 Vineet Chen MD 09/16/22 1547 [facility] 08-12-2022 History of Presen t illness [...] were not included. Subjective Patient ID: Ryan Thurman is a 77 y.o. male who presents [...] Venous Ulcer Pretibial Medial;Right (Active) Wound Image 08/12/221310 Site Assessment Pale;[place];Red;Sloughing 08/12/22 131 Wound Length (cm) 3 cm 08/12/22 131 Wound Width (cm) 4.7 cm 08/12/221310 Wound Surface Area (cm^2) 14.1 cm^2 08/12/22 131 Wound Depth (cm) 0.1 cm 08/12/22 131 Wound Volume (cm^3) 1.41 cm^3 08/12/221310 Wound Healing % 15 08/12/22 131 Drainage Description Clear;Yellow 08/12/221310 Odor None 08/12/221310 Drainage Amount Moderate 08/12/221310 Primary Dressing Alginate;Other (Comment) 08/05/22 133 Secondary Dressing 4x4 gauze 08/05/22 1338 Secured with Kerlex;Silk tape 08/05/221337 Compression Single layer tubigrip 08/05/221337 Dressing Status New dressing applied;Clean, dry & intact 08/05/221337 Wound/Incision 08/05/22 Venous Ulcer Calf Right;Posterior (Active) Wound Image 08/12/221311 Site Assessment Pale;[place];Sloughing 08/12/221311 Wound Length (cm) 1.4 cm 08/12/221311 Wound Width (cm) 2 cm 08/12/221311 Wound Surface Area (cm^2) 2.8 cm^2 08/12/221311 Wound Depth (cm) 0.2 cm 08/12/22 131 Wound Volume (cm^3) 0.56 cm^3 08/12/22 131 Wound Healing % 7 08/12/221311 Drainage Description Clear 08/12/22 1312 Odor None 08/12/221311 Drainage Amount Moderate 08/12/221311 Primary Dressing Alginate;Other (Comment) 08/05/22 1340 Secondary Dressing 4x4 gauze 08/05/22 1340 Secured with Kerlex;Paper tape 08/05/22 1340 Compression Single layer tubigrip 08/05/22 1340 Dressing Status New dressing applied;Clean, dry & intact 08/05/22 1340 Wound/Incision 08/05/22 Venous Ulcer Lower Leg Left;Lateral;Medial (Active) Wound Image 08/12/22 1309 Site Assessment Edema;Pale;[place];Sloughing 08/12/22 1309 Wound Length (cm) 19 cm 08/12/22 1309 Wound Width (cm) 5 cm 08/12/22 1309 Wound Surface Area (cm^2) 95 cm^2 08/12/22 1309 Wound Depth (cm) 0.1 cm 08/12/22 1309 Wound Volume (cm^3) 9.5 cm^3 08/12/22 1309 Wound Healing % 63 08/12/22 130 Drainage Description Clear 08/12/22 1309 Odor None 08/12/221308 Drainage Amount Large 08/12/22 1309 Primary Dressing [...] on cipro today. documented in this encounter [facility] 08-12-2022 Hospital Discharg e dave Tran RN - 08/12/2022 1:15 PM EDT Follow up with Dr. Evans in 1 week Edema/Swelling: Avoid standing for long periods of time, Elevate legs to the level of the heart or above for 30 minutes daily and/or when sitting, a frequency of: every day when sitting. Okay to walk around but do not parachute line tier one spot. Cleansing: Okay to shower. Do [...] medication, please contact the wound center at [phone] or [phone]. [facility] documented in this encounter [facility] 08-05-2022 History of Presen t illness [...] were not included. Subjective Patient ID: Ryan Thurman is a 77 y.o. male who presents [...] Dose Status aspirin 81 MG EC tablet [id number] Yes Take 81 mg by mouth. Historical ProviderMD Active cephalexin (Keflex) 500 MG capsule [id number] Take 500 mg by mouth 4 times daily. Historical ProviderMD Active furosemide (Lasix) 40 MG tablet [id number] Yes Take 40 mg by mouth. Historical ProviderMD Active spironolactone (Aldactone) 50 MG tablet [id number] Take 50 mg by mouth daily. Historical ProviderMD Active traZODone (Desyrel) 50 MG tablet [id number] Take 50 mg by mouth Nightly. Historical ProviderMD Active No Known Allergies Vitals: 08/05/22 1346 [...] Ulcer Pretibial Medial;Right (Active) Wound Image 08/05/22 133 Site Assessment Granulation;Maceration;Painful;Pale;Pi nk;Red;Sloughing 08/05/228 Wound Length (cm) 3.2 cm 08/05/228 Wound Width (cm) 5.2 cm 08/05/22 1338 Wound Surface Area (cm^2) 16.64 cm^2 08/05/228 Wound Depth (cm) 0.1 cm 08/05/22 1338 [...] reason before then. documented in this encounter [facility] 08-05-2022 History of Presen t illness [...] were not included. Subjective Patient ID: Ryan Thurman is a 77 y.o. male who presents [...] Dose Status aspirin 81 MG EC tablet [id number] Yes Take 81 mg by mouth. Historical Provider, Active cephalexin (Keflex) 500 MG capsule [id number] Take 500 mg by mouth 4 times daily. Historical Provider, Active furosemide (Lasix) 40 MG tablet [id number] Yes Take 40 mg by mouth. Historical Provider, Active spironolactone (Aldactone) 50 MG tablet [id number] Take 50 mg by mouth daily. Historical Provider, Active traZODone (Desyrel) 50 MG tablet [id number] Take 50 mg by mouth Nightly. Historical [...] reason before then. documented in this encounter [facility] 08-05-2022 [facility] Discharg e instructions Priyanka Espinoza RN - 08/05/2022 1:00 PM EDT Follow up with Dr. Evans in 1 week Edema/Swelling: Avoid standing for long periods of time, Elevate legs to the level of the heart or above for 30 minutes daily and/or when sitting, a frequency of: every day when sitting. Okay to walk around but do not parachute line tier one spot. Cleansing: Okay to shower. Do [...] wound care visits documented in this encounter [facility] 08-05-2022 [facility] Discharg e instructions Priyanka Espinoza RN - 08/05/2022 1:00 PM EDT Follow up with Dr. Evans in 1 week Edema/Swelling: Avoid standing for long periods of time, Elevate legs to the level of the heart or above for 30 minutes daily and/or when sitting, a frequency of: every day when sitting. Okay to walk around but do not parachute line tier one spot. Cleansing: Okay to shower. Do [...] wound care visits documented in this encounter [facility] 08-05-2022 Miscellaneous Notes Encounter addended by: Priyanka Espinoza RN on: 08/06/2022 9:10 AM Actions taken: Diagnosis association updated, Order list changed documented in this encounter [facility] 08-05-2022 Note Encounter addended b y: Priyanka Espinoza RN on: 08/06/2022 9:10 AM Actions taken: Diagnosis association updated, Order list changed [facility] Non-pressure chronic ulcer of [...] left lower leg [facility] Diagnosis Non-pressure chronic ulcer of [...] left lower leg [facility] Diagnosis Atrial fibrillation with rapid ventricular response (CMS/HCC) (HCC)- Primary Atrial fibrillation with rapid ventricular response (CMS/HCC) (HCC) Closed head injury, initial encounter Open leg wound, unspecified laterality, initial encounter [facility] Diagnosis Venous insufficiency (chronic) (peripheral) Unspecified venous (peripheral) insufficiency 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) documented in this encounter [facility] Diagnosis Venous insufficiency (chronic) (peripheral)- Primary Unspecified venous (peripheral) insufficiency 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) Venous insufficiency (chronic) (peripheral) Unspecified venous (peripheral) insufficiency 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) documented in this encounter [facility] Reason for Referral Specialty Diagnoses / Procedures Referred By Julian troncoso Referred To Contact Home Health Services Diagnoses Peripheral vascular disease, unspecified (HCC) Venous insufficiency Leg edema Procedures [place] OFFICE/OUTPATIENT [facility] 60-74 MINUTES Nicole Evans DPM [address] [address] Referral ID Status Reason Start Date Expiration Date Visits Requested Visits Authorized [id number] Pending Review Specialty Services Required 08/05/2022 02/01/2023 999 999 Specialty Diagnoses / Procedures Referred By Julian troncoso Referred To Contact Cardiology Diagnoses Leg edema Procedures Vascular US lower extremity venous insufficiency bilateral Nicole Evans DPM [address] [facility] [address] [place] [address] Referral ID Status Reason Start Date Expiration Date Visits Requested Visits Authorized [id number] Pending Review Perform Procedure 08/05/2022 02/01/2023 1 1 Specialty Diagnoses / Procedures Referred By Julian troncoso Referred To Contact Cardiology Diagnoses Peripheral vascular disease, unspecified (HCC) Procedures Vascular US lower extremity arterial PVR Nicole Evans DPM [address] [facility] [address] [place] [address] Referral ID Status Reason Start Date Expiration Date Visits Requested Visits Authorized [id number] Pending Review Perform Procedure 08/05/2022 02/01/2023 1 1 Specialty Diagnoses / Procedures Referred By Contac t Referred To Contact Home Health Services / Assistant Manager Diagnoses Venous insufficiency 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) Procedures [place] OFFICE/OUTPATIENT [facility] 60-74 MINUTES Nicole Evans DPM [address] [place] [address] [facility] [address] [place] [address] Referral ID Status Reason Start Date Expiration Date V isits Requested Visits Authorized [id number] Closed Specialty Services Required 08/06/2022 02/02/2023 999 999 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) Procedures Vascular US lower extremity arterial PVR Genia Jackson MD [address] [place] [address] Referral ID Status Reason Start Date Expiration Date V isits Requested Visits Authorized [id number] Closed Perform Procedure 09/11/2022 03/10/2023 1 1 [...] PVR Genia Jackson MD [address] [place] [address] Referral ID Status Reason Start Date Expiration Date V isits Requested Visits Authorized [id number] Closed Perform Procedure 09/11/2022 03/10/2023 1 1 Reason Onset Date Comments Care Coordination 04/09/2023 Care Teams (unrecognized sec tion and content) Inner Tube Tuber Machine Operator Relationship Specialty Start Date End Date Genia Jackson MD [address], [id number] PCP - General 04/02/16 Inner Tube Tuber Machine Operator Relationship Specialty Start Date End Date Genia Jackson MD [address] [place] [phone] PCP - General 04/02/16 Inner Tube Tuber Machine Operator Relationship Specialty Start Date End Date Genia Jackson MD [address], [place] [phone] PCP - General 04/02/16 Inner Tube Tuber Machine Operator Relationship Specialty Start Date End Date Genia Jackson MD [address] [place] [phone] PCP - General 04/02/16 Inner Tube Tuber Machine Operator Relationship Specialty Start Date End Date Genia Jackson MD [address] [place] [address] PCP - General 04/02/16 Inner Tube Tuber Machine Operator Relationship Specialty Start Date End Date Genia Jackson MD [address] [place] [phone] PCP - General 04/02/16 Scheduled Active and [...] BE BASED ON THE PRIMARY CLINICAL RECORDS. [employer] [facility]. provides no warranty or guarantee of the accuracy or completeness of information in this document.
[2023-04-10] MEDS: Furosemide 40 MG/4 ML Vial IV ×2 (05:10→14:04)
[2023-04-10 06:27] LABS: Absolute Lymphocyte Count 0.13 X10^3/uL (0.83-4.51); Absolute Neutrophil Count 14.6 X10^3/uL (2.0-7.7); Basophil# 0.02 X10^3/uL; Basophil% 0.1 % (0-1); Hematocrit 45.9 % (40-54); Hemoglobin 15.2 g/dL (13.0-16.5); Lymphocyte # 0.13 X10^3/ul (0.83-4.51); Lymphocyte % 0.8 % (19-41); Mean Corp Hgb Conc 33.1 g/dL (32-36); Mean Corpuscular Hgb 32.3 pg (27.0-32.0); Mean Corpuscular Volume 97.5 fL (80-94); Mean Platelet Vol. 12.5 fl (6.2-12.0); Monocyte% 3.2 % (0-10); NRBC Flagged by Analyzer 0.2 % (0-5); Neutrophil # 14.58 X10^3/uL (2.7-7.7); Neutrophil % 94.9 % (47-70); POSITIVE COUNT YES; POSITIVE DIFFERENTIAL YES; POSITIVE MORPHOLOGY YES; RBC Distribution Width CV 14.9 % (11.6-14.6); RBC Distribution Width SD 53.6 fl (35.1-43.9); Red Blood Count 4.71 M/mm3 (4.6-6.2); White Blood Count 15.4 K/mm3 (4.4-11.0)
[2023-04-10] MEDS: Diltiazem 125 MG in Dextrose 5%-Water (100mL Bag) 100 ML 15 MG CONT INF (06:46)
[2023-04-10 06:49] LABS: Differential Indicated SCAN CRITERIA MET
[2023-04-10 06:59] LABS: Anion Gap 7 (5-15); BUN 56 mg/dL (7-18); BUN/Creat Ratio 56.3 RATIO (10-20); Calcium,Total 8.7 mg/dL (8.5-10.1); Chloride 99 mmol/L (98-107); Cholesterol 61 mg/dL (200); EST Glomerular Filtration Rate 78 mL/min (>60); Est Glom Filt Rate - Afr Amer 94 mL/min (>60); Estimated Creatinine Clearance 70.69 ml/min; Glucose 58 mg/dL (74-106); High Density Lipoprotein 25 mg/dL; Phosphorus 4.8 mg/dL (2.5-4.9); Potassium 4.8 mmol/L (3.5-5.1); Sodium Level 132 mmol/L (136-145); Triglycerides 68 mg/dL; Very Low Density Lipoprotein 14 mg/dL (5-40)
--- NOTE | 2023-04-10 08:19 | PN.HOSP_ITS ---
Reason for Visit Reason for Visit: Diagnoses Hypertensive urgency (04/09/23) Heart failure, unspecified (04/09/23) Subjective Subjective Patient is a 77-year-old gentleman admitted with multiple complaints. Subsequent workup demonstrated A-fib with RVR admitted to a monitored bed for further management patient was found to have elevated D-dimer and subsequent CTA of the chest demonstrated multiple bilateral pulmonary emboli involving both upp er and lower lobes.No evidence for saddle embolus however there are findings suggestive of right-sided heart failure as well as right ventricular strain. Bilateral effusions larger on the right with consolidation of the dependent portion of both lungs. 2D echo demonstrated cardiomyopathy EF of 25% Objective Data Objective Data Vital Signs: Vital Signs Temp Pulse Resp BP Pulse Ox O2 Del Method 98.9 F 117 H 20 H 94/75 99 Room Air 04/10/23 08:04 04/10/23 08:07 04/10/23 08:07 04/10/23 08:07 04/10/23 08:04 04/10/23 08:04 Oxygen Delivery Method Room Air Weight: 78.3 kg Body Mass Index (BMI) 22.7 Intake & Output: Intake and Output for Last 24 Hours 04/08/23 04/09/23 04/10/23 23:59 23:59 23:59 Intake Total 237.35 / 243.60 128.00 / 128.00 Output Total 300 / 300 Balance 237.35 / -56.40 -172.00 / -172.00 Lab / Micro Data 04/10/23 06:05 04/10/23 06:05 Labs: Laboratory Results - last 24 hr 04/09/23 09:25: WBC 10.8, RBC 4.91, Hgb 16.2, Hct 48.3, MCV 98.4 H, MCH 33.0 H, MCHC 33.5, RDW Std Deviation 54.7 H, RDW Coeff of Kym 15.1 H, Plt Count 121 L, MPV 12.4 H, Immature Gran % (Auto) 0.600, Neut % (Auto) 91.9 H, Lymph % (Auto) 1.8 L, [place] % (Auto) 4.2, Eos % (Auto) 0.6, Baso % (Auto) 0.9, Absolute Neuts (auto) 10.0 H, Absolute Lymphs (auto) 0.19 L, Nucleated RBC % 0, Differential Comment COMMENT, ESR 16, Sodium 129 L 04/09/23 09:25: Sodium 130 L, Potassium 5.4 H 04/09/23 09:25: Potassium 5.3 H, Chloride 98 04/09/23 09:25: Chloride 100, Carbon Dioxide 25.0 04/09/23 09:25: Carbon Dioxide 25.0, Anion Gap 6 04/09/23 09:25: Anion Gap 5, BUN 60 H 04/09/23 09:25: BUN 58 H, Creatinine 1.05 04/09/23 09:25: Creatinine 1.08, Estim Creat Clear Calc 68.70 04/09/23 09:25: Estim Creat Clear Calc 66.79, Est GFR (MDRD) Af Amer 88 04/09/23 09:25: Est GFR (MDRD) Af Amer 86, Est GFR (MDRD) Non-Af 73 04/09/23 09:25: Est GFR (MDRD) Non-Af 71, BUN/Creatinine Ratio 57.1 H 04/09/23 09:25: BUN/Creatinine Ratio 53.7 H, Glucose 80 04/09/23 09:25: Glucose 89, Lactic Acid 3.7 H*, Calcium 9.2 04/09/23 09:25: Calcium 9.6, Total Bilirubin 2.30 H, AST 27, ALT 20, Alkaline Phosphatase 69, Troponin I High Sens 39, C-React Prot Ext Range 242.00 H, B- Natriuretic Peptide 1359.2 H, Total Protein 5.8 L, Albumin 2.1 L, Globulin 3.7, Albumin/Globulin Ratio 0.6 L, Procalcitonin 1.48 H, TSH 2.20 04/09/23 11:53: Urine Color Yellow, Urine Clarity Sl. Cloudy, Urine pH 5.0, Ur Specific [place] 1.020, Urine Protein 15 H, Urine Glucose (UA) Normal, Urine Ketones 5 H, Urine Occult Blood Negative, Urine Nitrite Positive H, Urine Bilirubin 1 H, Urine Urobilinogen 4 H, Ur Leukocyte Esterase 25 H, Urine RBC 0 SEEN, Urine WBC 0-5 SEEN, Ur Squamous Epith Cells 0 SEEN, Urine Bacteria 1+, Hyaline Casts 0-5 SEEN, Urine Mucus 0 SEEN 04/09/23 13:40: D-Dimer Quant (PE/DVT) > 20.00 H* 04/09/23 13:49: Lactic Acid 4.0 H*, Troponin I High Sens 35 04/09/23 14:15: S.aureus Protein A PCR NEGATIVE, MRSA (PCR) Negative 04/09/23 15:50: Troponin I High Sens 43 04/09/23 19:13: Troponin I High Sens 52 04/10/23 06:05: WBC 15.4 H, RBC 4.71, Hgb 15.2, Hct 45.9, MCV 97.5 H, MCH 32.3 H , MCHC 33.1, RDW Std Deviation 53.6 H, RDW Coeff of Kym 14.9 H, Plt Count 88 L, MPV 12.5 H, Immature Gran % (Auto) 1.000 H, Neut % (Auto) 94.9 H, Lymph % (Auto) 0.8 L, [place] % (Auto) 3.2, Eos % (Auto) 0.0, Baso % (Auto) 0.1, Absolute Neuts (auto) 14.6 H, Absolute Lymphs (auto) 0.13 L, Nucleated RBC % 0.2, Sodium 132 L, Potassium 4.8, Chloride 99, Carbon Dioxide 26.0, Anion Gap 7, BUN 56 H, Creatinine 1.00, Estim Creat Clear Calc 70.69, Est GFR (MDRD) Af Amer 94, Est GFR (MDRD) Non-Af 78, BUN/Creatinine Ratio 56.3 H, Glucose 58 L, Calcium 8.7, Phosphorus 4.8, Magnesium 2.0, Triglycerides 68, Cholesterol 61, LDL Cholesterol 22, VLDL Cholesterol 14, HDL Cholesterol 25 L Micro: Microbiology 04/09/23 15:02 Mucosa - Nose SARS-CoV-2, Influenza & RSV (PCR) - Final Radiography Diagnostic Testing: Radiology Impression Brain CT 04/09/23 09:10 IMPRESSION: Chronic involutional changes of the brain. Electronically Signed: Hao Joseph MD at 9:45 EST , Chest X-Ray 04/09/23 09:45 IMPRESSION: Findings suggestive of CHF with blunting of both costophrenic angles and atelectasis in the right hemithorax. Electronically Signed: Hao Joseph MD at 10:08 EST Reading Location ID and State: [address] [place] [address] , Service support , Foot X-Ray 04/09/23 09:45 IMPRESSION: Soft tissue swelling. Plantar spur. Electronically Signed: Hoa Joseph MD at 10:10 EST Reading Location ID and State: [address] [place] [address] , Service support , Foot X-Ray 04/09/23 09:45 IMPRESSION: Soft tissue swelling. Questionable gout involving the distal portion of the first metatarsal. Plantar spurs. Electronically Signed: Hao Joseph MD at 10:13 EST Reading Location ID and State: [address] [place] [address] , Service support , Tibia/Fibula X-Ray 04/09/23 09:45 IMPRESSION: Nonspecific soft tissue swelling. Vascular calcification. Electronically Signed: Hao Joseph MD at 10:09 EST Reading Location ID and State: [facility] / [place] , Service support , Tibia/Fibula X-Ray 04/09/23 09:45 IMPRESSION: Nonspecific soft tissue swelling. Electronically Signed: Hao Joseph MD at 10:13 EST Reading Location ID and State: [facility] / [place] , Service support , Echocardiogram 04/09/23 13:24 Interpretation Summary Mildly dilated left ventricle. Mild concentric left ventricular hypertrophy. At least grade 2 diastolic dysfunction The left ventricular ejection fraction is 20-25 %. Moderate global right ventricular systolic dysfunction. Severe (4+) posteriorly directed mitral valve insufficiency. Moderately severe (3+) tricuspid valve insufficiency. Right ventricular systolic pressure estimated to be 54 mmHg. Aortic sclerosis, no stenosis. Ordering Physician: Tl Man Referring Physician: Dario Jackson Performed By: Celestina Vera [facility] Chest CTA 04/09/23 14:53 IMPRESSION: Multiple bilateral pulmonary emboli involving both upper and lower lobes.. No evidence for saddle embolus however there are findings suggestive of right-sided heart failure as well as right ventricular strain. Bilateral effusions larger on the right with consolidation of the dependent portion of both lungs Cannot exclude coexisting pulmonary infarcts. Electronically Signed: Devendra Weller MD at 18:28 EST , ADDENDUM: 04/09/23 1847 IMPRESSION: Multiple bilateral pulmonary emboli involving both upper and lower lobes.. No evidence for saddle embolus however there are findings suggestive of right-sided heart failure as well as right ventricular strain. Bilateral effusions larger on the right with consolidation of the dependent portion of both lungs Cannot exclude coexisting pulmonary infarcts. N.B. : The above Results were Read Back by Devendra Weller MD to Tl Man MD, and understanding confirmed on 04/09/2023 18:40:34 (ET). Electronically Signed: Devendra Weller MD at 18:28 EST , Physical Exam Narrative GENERAL: cooperative HEENT: Atraumatic; normocephalic EYES; Anicteric, Normal Conjunctiva NECK; supple, normal thyroid, RESPIRATORY: Diminished to auscultation CARDIOVASCULAR: Regular S1 S2, GI: soft, normoactive bowel sounds, : No Renal angle tenderness; EXTREMITIES: Bipedal chronic stasis dermatitis with cyanosis MUSCULOSKELETAL: no muscle wasting NEURO: Awake; no lateralizing signs. SKIN: No Rash PSYCH; Flat affect Assessment & Plan Assessment/Plan (1) Acute decompensated heart failure: (2) Hypertensive urgency: PLAN: Plan Patient is a 77-year-old gentleman presenting with bipedal edema with chronic wounds. Found to be in A-fib with RVR. Admitted to a monitored bed for further management 1. Paroxysmal A-fib with RVR ? Patient currently not on any rate controlling agent. Has history of cardioversion in the past. Started on Cardizem drip as well as systemic anticoagulation. Admitted to monitored bed for further management. As part of his management ordered TSH serial cardiac enzymes D-dimer BNP as well as 2D echo 2. Acute congestive heart failure with reduced ejection fraction ? Patient admitted to a monitored bed managed with strict input and output, daily weight, fluid restriction as well as IV diuretics echo ordered for EF assessment ? 04/10/2023; 2D echo obtained demonstrated Mildly dilated left ventricle. Mild concentric left ventricular hypertrophy. At least grade 2 diastolic dysfunction The left ventricular ejection fraction is 20-25 %. Moderate global right ventricular systolic dysfunction. Severe (4+) posteriorly directed mitral valve insufficiency. Moderately severe (3+) tricuspid valve insufficiency. Right ventricular systolic pressure estimated to be 54 mmHg. Aortic sclerosis, no stenosis. 3. Bilateral pulmonary embolism as well as deep vein thrombosis involving both lower extremities ? Patient was found to have elevated D-dimer. Subsequently Ordered CTA of the chest as well as bilateral venous duplex. CTA demonstrated demonstrated multiple bilateral pulmonary emboli involving both upper and lower lobes.No evidence for saddle embolus however there are findings suggestive of right-sided heart failure as well as right ventricular strain. Bilateral effusions larger on the right with consolidation of the dependent portion of both lungs.. Venous duplex positive for bilateral lower extremity DVT. Patient remains on therapeutic Lovenox 4. Acute cor pulmonale ? Secondary to patient bilateral pulmonary embolism RVSP ordered 2D echo was estimated to be 54 mmHg 5. Chronic bilateral lower extremity stasis dermatitis ? Consult placed wound care nurse for dressing changes 6. Acute hypertensive emergency ? Patient systolic blood pressure on admission was greater than 200. He also had evidence of endorgan damage. Patient responded to initial antihypertensive treatment started in the ED. Ordered hydralazine as needed for systolic blood pressure greater than 160 ? Patient blood pressure has since resolved 7. Lactic acidosis ? Do suspect ischemia from hypoperfusion. Patient was noted to have cyanotic lower extremities. Ordered arterial duplex. Patient currently on systemic anticoagulation. If there is evidence of peripheral arterial disease plan is to consult vascular surgery 8. Abnormal urinalysis ? With positive urine nitrite as well as leukocyte esterase patient started on ceftriaxone cultures sent 9. Hyponatremia ? Suspected to be secondary to hypervolemic hyponatremia do expect improvement with diuresis 10. Mild hyperkalemia ? Repeat labs ordered for monitoring Time spent in the patient's overall evaluation,decision-making process, review of diagnostic data, adjustment of management, discussion with other providers, nursing nursing and ancillary staff involved in patient's care documentation, 55Minutes Advance planning; did discuss with the patient and family regarding advanced directives as well as CODE STATUS. Did explain the various scenarios involved ( FULL CODE, DNR CCA, DNR CCA with no intubation, and DNR CC and what each meant) patient son next of kin elected for patient to remain DNR CCA no intubation. Or dayanna was placed. Time spent on discussion 18 minutes. Charges/Coding Visit Charges Inpatient E&M: 25228 Subs Hosp L3 Procedures Hospitalists Procedures: 49890 Advncd Care Plan 30 Min
[2023-04-10 08:30] LABS: Platelet Estimate SLT DEC (ADEQ)
[2023-04-10] MEDS: Ceftriaxone 1 GM/50 ML BAG IV (09:18)
[2023-04-10] MEDS: Pantoprazole Sodium 40 MG Tablet PO (09:21)
[2023-04-10] MEDS: Enoxaparin 80 MG/0.8 ML Syringe SC ×2 (09:22→22:10)
--- NOTE | 2023-04-10 09:35 | CASEMGMT ---
Patient triggered an SDOH for concerns with living situation. However, patient is currently confused so SW is not able to address this concern right now. SW to follow. Rupal Wade [employer]ANNY [employer]O
--- NOTE | 2023-04-10 09:46 | ADU_ITS ---
Reason For Study: Cyanotic feet Right Velocities Left Velocities Ext. Iliac Artery, dist = 47.8 cm./sec. Ext Iliac Artery, dist = 24.6 cm./sec. Common Femoral Artery, mid = 53.9 cm./sec. Common Femoral Artery, mid = 61.4 cm./sec. Supf Femoral Artery, prox = 50.4 cm./sec. Supf. Femoral Artery, prox = 47.2 cm./sec. Supf Femoral Artery, mid = 48.3 cm./sec. Supf. Femoral Artery, mid = 37.3. cm./sec. Supf Femoral Artery, dist. = 41.7 cm./sec. Supf. Femoral Artery, dist = 39.5 cm./sec. Profunda Femoral Artery = 36.2 cm./sec. Profunda Femoral Artery = 31.8 cm./sec. Popliteal Artery, mid = 39.5 cm./sec. Popliteal Artery, mid = 32.9 cm./sec. Procedure Exam performed portable in patient room. Limited exam due to bilateral calf bandages for wounds. VL/US Art Duplex Bilat Lower Ext Interpretation Summary Right lower extremity arteries patent with normal velocities and waveforms. Left lower extremity arteries patent with normal velocities and waveforms. No significant stenosis or occlusion identified Limited study below knee bilateral Ordering Physician: Tl Man Referring Physician: Dario Jackson Performed By: Mandie Zaldivar RVT
[2023-04-10] MEDS: Metoprolol Tartrate 25 MG Tablet PO ×2 (10:40→22:11)
--- NOTE | 2023-04-10 12:18 | CASEMGMT ---
LIBAN OCAMPO Assessment: Noted pt is confused. TC to pt son for initial transition planning/care coordination assessment. LIBAN OCAMPO introduced self and role at [facility], pt son voices understanding and consents to assessment. Care providers, pharmacy, and demographics verified/updated. Pt son states he is the only biological son, pt is and his home is [place]. He denies pt having a LW/DPOA. Admitting Dx:CHF, Afib with RVR PCP:Renetta Specialists:Denies Preferred Pharmacy:[facility] Retail Insurance:[employer] [facility] Prescription Benefit: yes LNOK:Haseeb Thurman, son; Robbie Thurman, step son Living Arrangements: Pt lives alone in a ranch duplex with one step to enter. Pt son lives on the other side but have separate living quarters. Pt son reports pt started getting worse last Thursday but has declined in the last 20 days. He states prior to this pt was I at home, does not use AD to ambulate. Pt son has been providing meals as of late and the neighbor providing pt with breakfast. Pt son states he works and pt cannot return home and be able to care for himself. Transportation: Pt was driving up to 20 days ago. DME:grab bars in the bathroom, shower chair HHC/SNF:Pt son was trying to get HH for pt but pt refused. Denies SNF stays. Pt son would like pt to go to [facility], he denies need for a list of other options. Pt son states no further concerns/needs. CM to follow. Advised pt son to ask CM if any further question/concerns/needs arise, voices understanding. Pt Son Goal:[facility] DC Plan: Likely SNF, therapy evals pending. Updated SW.
--- NOTE | 2023-04-10 13:06 | CON.PCM.CA_ITS ---
Assessment & Plan Assessment/Plan (1) Atrial fibrillation with RVR: PLAN: Started on metoprolol already. Continue. Escalate doses as tolerated. Patient has allergy listed to amiodarone as dizziness. Will try amiodarone again and monitor. (2) Cardiomyopathy: PLAN: Severe LV systolic dysfunction. Recommend testing as outpatient to evaluate for ischemic heart disease. Beta-blockers as tolerated. Start ETIENNE inhibitors if blood pressure able to tolerate. (3) Congestive heart failure: PLAN: Agree with furosemide. (4) Pulmonary embolism: PLAN: As per internal medicine. (5) Mitral valve regurgitation: PLAN: Diuretics. Afterload reduction. (6) Tricuspid valve regurgitation: PLAN: Monitor. Diuretics. (7) Pulmonary hypertension: PLAN: Diagnosed with pulmonary embolism. (8) Peripheral arterial disease: PLAN: Recommend vascular surgery consult. (9) Cellulitis of both lower extremities: PLAN: As per internal medicine. (10) Acute encephalopathy: HPI Consult Data Date of Consult: 04/10/23 HPI Narrative Reason for Consultation: Atrial fibrillation, congestive heart failure HPI Narrative: This patient has past medical history significant for atrial fibrillation and hypertension. He has been admitted to the hospital with complaints of lower extremity swelling. During the course of workup, patient has been diagnosed with bilateral pulmonary embolism. Echocardiogram revealed severe LV systolic dysfunction with an estimated ejection fraction of 20 to 25%. Severe mitral valve regurgitation along with moderate to severe tricuspid valve regurgitation was also noted. RV systolic dysfunction also noted. Patient is awake however noncommunicative. Not responding to verbal communication. History obtained from chart. [facility] Medical History Easy bruising History of atrial fibrillation History of cardioversion History of edema History of hypertension History of stress test Non-smoker Wears glasses Home Medications aspirin 81 mg tablet,delayed release 81 mg PO DAILY HEART HEALTH 11/01/21 [H istory Last Taken Unknown] furosemide 40 mg tablet 40 mg PO DAILY EDEMA 11/01/21 [History Last Taken Unknown] potassium chloride 20 mEq tablet,extended release 20 meq PO DAILY SUPPLEMENT 11/01/21 [History Last Taken Unknown] cephalexin 500 mg capsule 500 mg PO Q6H ANTIBIOTIC 04/09/23 [History Last Taken Unknown] spironolactone 50 mg tablet 50 mg PO DAILY BLOOD PRESSURE 04/09/23 [History Last Taken Unknown] trazodone 50 mg tablet 25 - 50 mg PO QHS PRN SLEEP 04/09/23 [History Last Taken Unknown] Allergy/AdvReac Type Severity Reaction Status Date / Time amiodarone Allergy Dizziness Verified 04/08/23 23:13 apixaban [From Eliquis] Allergy flu-like Verified 04/08/23 23:13 symptoms carvedilol Allergy sluggish/shabazz Verified 04/08/23 23:13 zy digoxin Allergy dizzy Verified 04/08/23 23:13 Family History Father Heart disease Hypertension Social History Smoking Status: Never smoker alcohol intake: never substance use type: does not use Physical Exam Narrative Comfortable. No apparent distress. Noncommunicative. Lying in the bed without a shirt or gown. Respirations unlabored. Awake. Both lower extremities wrapped in bandages. Feet appear swollen and cyanotic. Risk Stratification Risk Stratification Applicable: No Objective Data Vital Signs: Vital Signs Temp Pulse Resp BP Pulse Ox O2 Del Method 98.9 F 120 H 18 98/66 99 Room Air 04/10/23 08:04 04/10/23 10:40 04/10/23 10:38 04/10/23 10:40 04/10/23 08:04 04/10/23 08:42 Oxygen Delivery Method Room Air Weight: 172 lb 9.951 oz Body Mass Index (BMI) 22.7 Intake & Output: Intake and Output for Last 24 Hours 04/08/23 04/09/23 04/10/23 23:59 23:59 23:59 Intake Total 237.35 / 243.60 219.17 / 219.17 Output Total 300 / 300 Balance 237.35 / -56.40 -80.83 / -80.83 Lab / Micro Data 04/10/23 06:05 04/10/23 06:05 Labs: Laboratory Results - last 24 hr 04/09/23 13:40: D-Dimer Quant (PE/DVT) > 20.00 H* 04/09/23 13:49: Lactic Acid 4.0 H*, Troponin I High Sens 35 04/09/23 14:15: S.aureus Protein A PCR NEGATIVE, MRSA (PCR) Negative 04/09/23 15:50: Troponin I High Sens 43 04/09/23 19:13: Troponin I High Sens 52 04/10/23 06:05: WBC 15.4 H, RBC 4.71, Hgb 15.2, Hct 45.9, MCV 97.5 H, MCH 32.3 H , MCHC 33.1, RDW Std Deviation 53.6 H, RDW Coeff of Kym 14.9 H, MPV 12.5 H, Immature Gran % (Auto) 1.000 H, Neut % (Auto) 94.9 H, Lymph % (Auto) 0.8 L, Russell % (Auto) 3.2, Eos % (Auto) 0.0, Baso % (Auto) 0.1, Absolute Neuts (auto) 14.6 H, Absolute Lymphs (auto) 0.13 L, Nucleated RBC % 0.2, Platelet Estimate SLT DEC, Sodium 132 L, Potassium 4.8, Chloride 99, Carbon Dioxide 26.0, Anion Gap 7, BUN 56 H, Creatinine 1.00, Estim Creat Clear Calc 70.69, Est GFR (MDRD) Af Amer 94, Est GFR (MDRD) Non-Af 78, BUN/Creatinine Ratio 56.3 H, Glucose 58 L, Calcium 8.7, Phosphorus 4.8, Magnesium 2.0, Triglycerides 68, Cholesterol 61, LDL Cholesterol 22, VLDL Cholesterol 14, HDL Cholesterol 25 L Micro: Microbiology 04/09/23 14:15 Wound - Leg, Right Gram Stain - Final 04/09/23 14:15 Wound - Leg, Right Wound Culture - Preliminary GNR Poss Pseudomonas sp Staphylococcus aureus 04/09/23 15:02 Mucosa - Nose SARS-CoV-2, Influenza & RSV (PCR) - Final Cardiology Labs/Tests 04/09/23 13:40: D-Dimer Quant (PE/DVT) > 20.00 H* 04/09/23 13:49: Lactic Acid 4.0 H* 04/10/23 06:05: WBC 15.4 H, RBC 4.71, Hgb 15.2, Hct 45.9, MCV 97.5 H, MCH 32.3 H , MCHC 33.1, MPV 12.5 H, Immature Gran % (Auto) 1.000 H, Neut % (Auto) 94.9 H, Lymph % (Auto) 0.8 L, Russell % (Auto) 3.2, Eos % (Auto) 0.0, Baso % (Auto) 0.1, Absolute Neuts (auto) 14.6 H, Nucleated RBC % 0.2, Sodium 132 L, Potassium 4.8, Chloride 99, Carbon Dioxide 26.0, Anion Gap 7, BUN 56 H, Creatinine 1.00, Est GFR (MDRD) Af Amer 94, Est GFR (MDRD) Non-Af 78, BUN/Creatinine Ratio 56.3 H, Glucose 58 L, Calcium 8.7, Phosphorus 4.8, Magnesium 2.0, Triglycerides 68, Cholesterol 61, LDL Cholesterol 22, VLDL Cholesterol 14, HDL Cholesterol 25 L Rhythm: EKG: ECHO: Stress Test: Cardiac Cath: PCI: CT Surgery: Holter monitor: EPS: PPM: CXR: Chest CT Scan: Radiography Diagnostic Testing: Radiology Impression Echocardiogram 04/09/23 13:24 Interpretation Summary Mildly dilated left ventricle. Mild concentric left ventricular hypertrophy. At least grade 2 diastolic dysfunction The left ventricular ejection fraction is 20-25 %. Moderate global right ventricular systolic dysfunction. Severe (4+) posteriorly directed mitral valve insufficiency. Moderately severe (3+) tricuspid valve insufficiency. Right ventricular systolic pressure estimated to be 54 mmHg. Aortic sclerosis, no stenosis. Ordering Physician: Tl Man Referring Physician: Dario Jackson Performed By: Celestina Vera, [facility] Chest CTA 04/09/23 14:53 IMPRESSION: Multiple bilateral pulmonary emboli involving both upper and lower lobes.. No evidence for saddle embolus however there are findings suggestive of right-sided heart failure as well as right ventricular strain. Bilateral effusions larger on the right with consolidation of the dependent portion of both lungs Cannot exclude coexisting pulmonary infarcts. Electronically Signed: Devendra Weller MD at 18:28 EST , ADDENDUM: 04/09/23 184 IMPRESSION: Multiple bilateral pulmonary emboli involving both upper and lower lobes.. No evidence for saddle embolus however there are findings suggestive of right-sided heart failure as well as right ventricular strain. Bilateral effusions larger on the right with consolidation of the dependent portion of both lungs Cannot exclude coexisting pulmonary infarcts. N.B. : The above Results were Read Back by Devendra Weller MD to Tl Man MD, and understanding confirmed on 04/09/2023 18:40:34 (ET). Electronically Signed: Devendra Weller MD at 18:28 EST Reading Location ID and State: [facility] / [place] Tel , Service support ,
--- NOTE | 2023-04-10 15:39 | CHAPLAIN ---
Type of Pastoral Visit _x__ Initial Visit ___ Follow-up Visit ___ On-call Visit ___ General Patient Visit ___ Spiritual Assessment ___ Family Conference ___ Bereavement ___ Rapid Response ___ Code Blue ___ Other (describe below) Pastoral Care Referral From _x__ Patient ___ Family ___ Nurse ___ Physician ___ Ager Operator ___ Software Engineering Manager ___ Other (describe below) Sacrament/Intervention _x__ Active listening ___ Anointing ___ Yarsani ___ Bereavement ___ Communion ___ Jada exploration ___ ___ Life review _x__ Prayer ___ Reconciliation ___ Sacrament of Sick _x__ Supportive presence ___ Wedding ___ Other (describe below) Pastoral Comments patient is having ultrasound testing done on his extremities but tech welcomes this chair springer to give support while she continues to work; pt is bent over in the bed and his legs are heavily wrapped; pt is able to acknowledge the chair springer and answer questions but appears to be compromised physically and mentally; pt agrees that he is not feeling well and has needs but also speaks of being very blessed and I'm doing okay ; pt indicates jada in God and welcomes a prayer; offer of support, seeking what needs the pt feels he has at this time; prayer given with offer of ongoing support
--- NOTE | 2023-04-10 15:45 | CASEMGMT ---
Discharge Planning Referrral sent via [facility] to [place]. Jojo Alfaro, Discharge Planning Asst.
[2023-04-10] MEDS: Amiodarone 200 MG Tablet PO ×2 (16:34→22:11)
[2023-04-11] VITALS (17 sets, daily range): BP systolic 74–113; BP diastolic 40–78; PULSE 95–117; RESP 14–18; TEMP 36.1–37.2; O2SAT 87–939; BMI 22.7
[2023-04-11] MEDS: Lactated Ringers 500 ML 999 ML IV ×2 (00:58→06:00)
[2023-04-11 04:43] LABS: Absolute Lymphocyte Count 0.35 X10^3/uL (0.83-4.51); Absolute Neutrophil Count 22.1 X10^3/uL (2.0-7.7); Basophil# 0.02 X10^3/uL; Basophil% 0.1 % (0-1); Eosinophil# 0.01 X10^3/uL; Hematocrit 50.3 % (40-54); Hemoglobin 16.2 g/dL (13.0-16.5); Lymphocyte # 0.35 X10^3/ul (0.83-4.51); Lymphocyte % 1.4 % (19-41); Mean Corp Hgb Conc 32.2 g/dL (32-36); Mean Corpuscular Hgb 32.3 pg (27.0-32.0); Mean Corpuscular Volume 100.4 fL (80-94); Mean Platelet Vol. 13.1 fl (6.2-12.0); Monocyte% 4.1 % (0-10); NRBC Flagged by Analyzer 0.2 % (0-5); Neutrophil % 91.4 % (47-70); POSITIVE COUNT YES; POSITIVE DIFFERENTIAL YES; POSITIVE MORPHOLOGY YES; Platelet Count 77 K/mm3 (150-450); RBC Distribution Width CV 14.7 % (11.6-14.6); RBC Distribution Width SD 54.4 fl (35.1-43.9); Red Blood Count 5.01 M/mm3 (4.6-6.2); White Blood Count 24.2 K/mm3 (4.4-11.0)
[2023-04-11 04:50] LABS: Differential Indicated SCAN CRITERIA MET
[2023-04-11 05:03] LABS: Anion Gap 7 (5-15); BUN 46 mg/dL (7-18); BUN/Creat Ratio 39.7 RATIO (10-20); Calcium,Total 8.7 mg/dL (8.5-10.1); Chloride 99 mmol/L (98-107); Creatinine, Serum 1.16 mg/dL (0.70-1.30); EST Glomerular Filtration Rate 65 mL/min (>60); Est Glom Filt Rate - Afr Amer 79 mL/min (>60); Glucose 36 mg/dL (74-106); Potassium 5.7 mmol/L (3.5-5.1); Sodium Level 134 mmol/L (136-145)
[2023-04-11] MEDS: Dextrose 50%-Water 25 GM/50 ML DISP.SYRIN IV ×2 (05:20→05:35)
[2023-04-11 05:24] LABS: Bedside Glucose 21 mg/dL (74-106)
[2023-04-11 05:34] LABS: Differential Comment SCANNED; Platelet Estimate MOD DEC (ADEQ)
[2023-04-11] MEDS: Dextrose 10%-Water 250 ML 50 ML IV ×2 (06:08→10:36)
--- NOTE | 2023-04-11 06:12 | MDS.RN ---
This RN called Robbie (son) to update on patients status, no answer, voicemail left. Then called Haseeb (son), and updated on the changes in status this AM. Haseeb stated that they knew he was passing and they are at peace with it. Haseeb stated they would be in this morning and expressed thanks for care. No further questions at this time.
[2023-04-11 06:19] LABS: Bedside Glucose 30 mg/dL (74-106)
[2023-04-11 06:19] LABS: Bedside Glucose 64 mg/dL (74-106)
--- NOTE | 2023-04-11 06:48 | PCM.HOSP.N ---
Hospitalist Note Not informed that patient glucose is 21 and 1 amp of D50 was given. Blood pressure also down 70/50. Prior to that his blood pressure 1 time was in the 80s and 500 mL on Ringer lactate was given. D50 was given and the repeat glucose came 30 therefore another amp of D50 given. Patient is not diabetic. Hypoglycemia protocol is ordered. Patient put on D10. Accu-Cheks every 1 hour till glucose is 80 mg/dL and then every 2 hours till glucoses more than 100 mg/dL. DC D50 if Accu-Chek is more than 80 mg/dl.
[2023-04-11 07:11] LABS: Bedside Glucose 127 mg/dL (74-106)
--- NOTE | 2023-04-11 09:07 | PCM.PN.HOSP ---
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 Had complicated night, with hypoglycemia. Objective Data Objective Data Vital Signs: Vital Signs Temp Pulse Resp BP Pulse Ox O2 Del Method O2 Flow Rate 98.2 F 109 H 14 94/60 93 Nasal Cannula 3 04/11/23 06:00 04/11/23 08:34 04/11/23 06:00 04/11/23 06:00 04/11/23 06:00 04/11/23 06:00 04/11/23 06:00 Oxygen Flow Rate (L/min) 3 Oxygen Delivery Method Nasal Cannula Weight: 78.2 kg Body Mass Index (BMI) 22.7 Intake & Output: Intake and Output for Last 24 Hours 04/09/23 04/10/23 04/11/23 23:59 23:59 23:59 Intake Total 237.35 / 243.60 229.17 / 229.17 1000 / 1000 Output Total 300 / 300 Balance 237.35 / -56.40 -70.83 / -70.83 1000 / 1000 Lab / Micro Data 04/11/23 03:42 04/11/23 03:42 Labs: Laboratory Results - last 24 hr 04/10/23 06:05: Plt Count 04/11/23 03:42: WBC 24.2 H, RBC 5.01, Hgb 16.2, Hct 50.3, MCV 100.4 H, MCH 32.3 H, MCHC 32.2, RDW Std Deviation 54.4 H, RDW Coeff of Kym 14.7 H, Plt Count 77 L, MPV 13.1 H, Immature Gran % (Auto) 3.000 H, Neut % (Auto) 91.4 H, Lymph % (Auto) 1.4 L, [place] % (Auto) 4.1, Eos % (Auto) 0.0, Baso % (Auto) 0.1, Absolute Neuts (auto) 22.1 H, Absolute Lymphs (auto) 0.35 L, Nucleated RBC % 0.2, Differential Comment SCANNED, Platelet Estimate MOD DEC, Sodium 134 L, Potassium 5.7 H, Chloride 99, Carbon Dioxide 28.0, Anion Gap 7, BUN 46 H, Creatinine 1.16, Estim Creat Clear Calc 60.00, Est GFR (MDRD) Af Amer 79, Est GFR (MDRD) Non-Af 65, BUN/Creatinine Ratio 39.7 H, Glucose 36 L*, Calcium 8.7 04/11/23 05:06: POC Glucose 21 L* 04/11/23 05:26: POC Glucose 30 L* 04/11/23 05:50: POC Glucose 64 L 04/11/23 06:54: POC Glucose 127 H Micro: Microbiology 04/09/23 14:15 Wound - Leg, Right Gram Stain - Final 04/09/23 14:15 Wound - Leg, Right Wound Culture - Preliminary Pseudomonas aeruginosa Staphylococcus aureus 04/09/23 15:02 Mucosa - Nose SARS-CoV-2, Influenza & RSV (PCR) - Final Physical Exam Narrative GENERAL: Obtunded HEENT: Oral mucosa coating EYES; Anicteric, Normal Conjunctiva NECK; supple, normal thyroid, RESPIRATORY: Diminished to auscultation CARDIOVASCULAR: Regular S1 S2, GI: soft, normoactive bowel sounds, : No Renal angle tenderness; EXTREMITIES: Bipedal chronic stasis dermatitis with cyanosis MUSCULOSKELETAL: no muscle wasting NEURO: Obtunded Assessment & Plan Assessment/Plan (1) Acute decompensated heart failure: (2) Hypertensive urgency: PLAN: Plan Patient is a 77-year-old gentleman presenting with bipedal edema with chronic wounds. Found to be in A-fib with RVR. Admitted to a monitored bed for further management 1. Paroxysmal A-fib with RVR ? Patient currently not on any rate controlling agent. Has history of cardioversion in the past. Started on Cardizem drip as well as systemic anticoagulation. Admitted to monitored bed for further management. As part of his management ordered TSH serial cardiac enzymes D-dimer BNP as well as 2D echo 2. Acute congestive heart failure with reduced ejection fraction ? Patient admitted to a monitored bed managed with strict input and output, daily weight, fluid restriction as well as IV diuretics echo ordered for EF assessment ? 04/10/2023; 2D echo obtained demonstrated Mildly dilated left ventricle. Mild concentric left ventricular hypertrophy. At least grade 2 diastolic dysfunction The left ventricular ejection fraction is 20-25 %. Moderate global right ventricular systolic dysfunction. Severe (4+) posteriorly directed mitral valve insufficiency. Moderately severe (3+) tricuspid valve insufficiency. Right ventricular systolic pressure estimated to be 54 mmHg. Aortic sclerosis, no stenosis. 3. Bilateral pulmonary embolism as well as deep vein thrombosis involving both lower extremities ? Patient was found to have elevated D-dimer. Subsequently Ordered CTA of the chest as well as bilateral venous duplex. CTA demonstrated demonstrated multiple bilateral pulmonary emboli involving both upper and lower lobes.No evidence for saddle embolus however there are findings suggestive of right-sided heart failure as well as right ventricular strain. Bilateral effusions larger on the right with consolidation of the dependent portion of both lungs.. Venous duplex positive for bilateral lower extremity DVT. Patient remains on therapeutic Lovenox 4. Acute cor pulmonale ? Secondary to patient bilateral pulmonary embolism RVSP ordered 2D echo was estimated to be 54 mmHg 5. Chronic bilateral lower extremity stasis dermatitis ? Consult placed wound care nurse for dressing changes 6. Acute hypertensive emergency ? Patient systolic blood pressure on admission was greater than 200. He also had evidence of endorgan damage. Patient responded to initial antihypertensive treatment started in the ED. Ordered hydralazine as needed for systolic blood pressure greater than 160 ? Patient blood pressure has since resolved 7. Lactic acidosis ? Do suspect ischemia from hypoperfusion. Patient was noted to have cyanotic lower extremities. Ordered arterial duplex. Patient currently on systemic anticoagulation. If there is evidence of peripheral arterial disease plan is to consult vascular surgery 8. Abnormal urinalysis ? With positive urine nitrite as well as leukocyte esterase patient started on ceftriaxone cultures sent 9. Hyponatremia ? Suspected to be secondary to hypervolemic hyponatremia do expect improvement with diuresis 10. Mild hyperkalemia ? Repeat labs ordered for monitoring ?Hemoglobin up to 5.7 11. Hypoglycemia ? Patient did receive D10 Prognosis grave plan is to have a discussion with patient's son to change CODE STATUS to DNR CC with comfort measures only call was placed went to voicemail Time spent in the patient's overall evaluation,decision-making process, review of diagnostic data, adjustment of management, discussion with other providers, nursing nursing and ancillary staff involved in patient's care documentation, [employer] Charges/Coding Visit Charges Inpatient E&M: 15827 Subs Hosp L3
[2023-04-11 09:15] LABS: Bedside Glucose 162 mg/dL (74-106)
[2023-04-11 10:26] LABS: Anion Gap 4 (5-15); BUN 68 mg/dL (7-18); Calcium,Total 8.5 mg/dL (8.5-10.1); Chloride 99 mmol/L (98-107); Creatinine, Serum 1.62 mg/dL (0.70-1.30); EST Glomerular Filtration Rate 44 mL/min (>60); Est Glom Filt Rate - Afr Amer 54 mL/min (>60); Estimated Creatinine Clearance 42.91 ml/min; Glucose 170 mg/dL (74-106); Sodium Level 130 mmol/L (136-145)
[2023-04-11] MEDS: Ceftriaxone 1 GM/50 ML BAG IV (10:31)
[2023-04-11] MEDS: Enoxaparin 80 MG/0.8 ML Syringe SC (10:35)
--- NOTE | 2023-04-11 14:09 | DS.PCM_ITS ---
Providers Date of Admission: 04/09/23 Primary Care Physician: Dr. 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 Routine Comment: 04/10/23 09:54 Consult: Cardiology Routine Consulting Provider: Josiane Sparrow Reason for Consult: AFIB, CARDIOMYOPATHY EMERGENT Consult: No MD Notified: Yes Date Notified: 04/10/23 Time Notified: 09:54 Method of Notification: Text Reason For Visit: CONGESTIVE HEART FAILURE, A-FIB WITH RVR, Diagnosis Discharge Diagnosis (1) Acute decompensated heart failure: Status: Acute Code(s): I50.9 - Heart failure, unspecified (2) Hypertensive urgency: Status: Acute Code(s): I16.0 - Hypertensive urgency Plan Patient is a 77-year-old gentleman presenting with bipedal edema with chronic wounds. Found to be in A-fib with RVR. Admitted to a monitored bed for further management 1. Paroxysmal A-fib with RVR ? Patient currently not on any rate controlling agent. Has history of cardioversion in the past. Started on Cardizem drip as well as systemic anticoagulation. Admitted to monitored bed for further management. As part of his management ordered TSH serial cardiac enzymes D-dimer BNP as well as 2D echo 2. Acute congestive heart failure with reduced ejection fraction ? Patient admitted to a monitored bed managed with strict input and output, daily weight, fluid restriction as well as IV diuretics echo ordered for EF asse ssment ? 04/10/2023; 2D echo obtained demonstrated Mildly dilated left ventricle. Mild concentric left ventricular hypertrophy. At least grade 2 diastolic dysfunction The left ventricular ejection fraction is 20-25 %. Moderate global right ventricular systolic dysfunction. Severe (4+) pos teriorly directed mitral valve insufficiency. Moderately severe (3+) tricuspid valve insufficiency. Right ventricular systolic pressure estimated to be 54 mmHg. Aortic sclerosis, no stenosis. 3. Bilateral pulmonary embolism as well as deep vein thrombosis involving both lower extremities ? Patient was found to have elevated D-dimer. Subsequently Ordered CTA of the chest as well as bilateral venous duplex. CTA demonstrated demonstrated multiple bilateral pulmonary emboli involving both upper and lower lobes.No evidence for saddle embolus however there are findings suggestive of right-sided heart failure as well as right ventricular strain. Bilateral effusions larger on the right with consolidation of the dependent portion of both lungs.. Venous duplex positive for bilateral lower extremity DVT. Patient remains on therapeutic Lovenox 4. Acute cor pulmonale ? Secondary to patient bilateral pulmonary embolism RVSP ordered 2D echo was estimated to be 54 mmHg 5. Chronic bilateral lower extremity stasis dermatitis ? Consult placed wound care nurse for dressing changes 6. Acute hypertensive emergency ? Patient systolic blood pressure on admission was greater than 200. He also had evidence of endorgan damage. Patient responded to initial antihypertensive treatment started in the ED. Ordered hydralazine as needed for systolic blood pressure greater than 160 ? Patient blood pressure has since resolved 7. Lactic acidosis ? Do suspect ischemia from hypoperfusion. Patient was noted to have cyanotic lower extremities. Ordered arterial duplex. Patient currently on systemic anticoagulation. If there is evidence of peripheral arterial disease plan is to consult vascular surgery 8. Abnormal urinalysis ? With positive urine nitrite as well as leukocyte esterase patient started on ceftriaxone cultures sent 9. Hyponatremia ? Suspected to be secondary to hypervolemic hyponatremia do expect improvement with diuresis 10. Mild hyperkalemia ? Repeat labs ordered for monitoring ?Hemoglobin up to 5.7 11. Hypoglycemia ? Patient did receive D10 Prognosis grave plan is to have a discussion with patient's son to change CODE STATUS to DNR CC with comfort measures only call was placed went to voicemail Time spent in the patient's overall evaluation,decision-making process, review of diagnostic data, adjustment of management, discussion with other providers, nursing nursing and ancillary staff involved in patient's care documentation, [employer] Medications at Discharge Home Medications aspirin 81 mg tablet,delayed release 81 mg PO DAILY HEART HEALTH 11/01/21 furosemide 40 mg tablet 40 mg PO DAILY EDEMA 11/01/21 potassium chloride 20 mEq tablet,extended release 20 meq PO DAILY SUPPLEMENT 11/01/21 cephalexin 500 mg capsule 500 mg PO Q6H ANTIBIOTIC 04/09/23 spironolactone 50 mg tablet 50 mg PO DAILY BLOOD PRESSURE 04/09/23 trazodone 50 mg tablet 25 - 50 mg PO QHS PRN SLEEP 04/09/23 Weight / BMI Weight Weight: 78.2 kg Body Mass Index (BMI) 22.7 ABG / Lab / Microbiology Data 04/11/23 03:42 04/11/23 09:57 Laboratory: Laboratory Results - last 24 hr 04/11/23 03:42: WBC 24.2 H, RBC 5.01, Hgb 16.2, Hct 50.3, MCV 100.4 H, MCH 32.3 H, MCHC 32.2, RDW Std Deviation 54.4 H, RDW Coeff of Kym 14.7 H, Plt Count 77 L, MPV 13.1 H, Immature Gran % (Auto) 3.000 H, Neut % (Auto) 91.4 H, Lymph % (Auto) 1.4 L, [place] % (Auto) 4.1, Eos % (Auto) 0.0, Baso % (Auto) 0.1, Absolute Neuts (auto) 22.1 H, Absolute Lymphs (auto) 0.35 L, Nucleated RBC % 0.2, Differential Comment SCANNED, Platelet Estimate MOD DEC, Sodium 134 L, Potassium 5.7 H, Chloride 99, Carbon Dioxide 28.0, Anion Gap 7, BUN 46 H, Creatinine 1.16, Estim Creat Clear Calc 60.00, Est GFR (MDRD) Af Amer 79, Est GFR (MDRD) Non-Af 65, BUN/Creatinine Ratio 39.7 H, Glucose 36 L*, Calcium 8.7 04/11/23 05:06: POC Glucose 21 L* 04/11/23 05:26: POC Glucose 30 L* 04/11/23 05:50: POC Glucose 64 L 04/11/23 06:54: POC Glucose 127 H 04/11/23 08:32: POC Glucose 162 H 04/11/23 09:57: Sodium 130 L, Potassium 6.0 H*, Chloride 99, Carbon Dioxide 27.0, Anion Gap 4 L, BUN 68 H, Creatinine 1.62 H, Estim Creat Clear Calc 42.91, Est GFR (MDRD) Af Amer 54 L, Est GFR (MDRD) Non-Af 44 L, BUN/Creatinine Ratio 42.0 H, Glucose 170 H, Calcium 8.5 Microbiology: Microbiology 04/09/23 14:15 Wound - Leg, Right Gram Stain - Final 04/09/23 14:15 Wound - Leg, Right Wound Culture - Final Pseudomonas aeruginosa Staphylococcus aureus 04/09/23 15:02 Mucosa - Nose SARS-CoV-2, Influenza & RSV (PCR) - Final Discharge Plan Admission Admit Date/Time: 04/09/23 11:10 Attending Provider: Tl Man Primary Care Provider: Dario Jackson Consulting Providers: Josiane Sparrow Discharge Orders/Prescriptions Prescriptions: No Action furosemide 40 mg tablet 40 mg PO DAILY potassium chloride 20 mEq tablet extended release 20 meq PO DAILY aspirin 81 mg tablet,delayed release (DR/EC) 81 mg PO DAILY spironolactone 50 mg tablet 50 mg PO DAILY trazodone 50 mg tablet 25 - 50 mg PO QHS PRN (Reason: SLEEP ) cephalexin 500 mg capsule 500 mg PO Q6H Patient Comments: NEW RX FILLED YESTERDAY (04-08-23) AT [facility] IN [place]. RX HAS NOT BEEN PICKED UP AT THIS TIME. Rx Instructions: TAKE ONE CAPSULE BY MOUTH EVERY SIX HOURS FOR TEN DAYS. Referrals / Follow Up: Dario Jackson MD [Primary Care Provider] -
[2023-04-11] MEDS: Glycerin/Hypromellose/PEG400 15 ml Bottle 2 DRP EACH EYE (14:31)
[2023-04-11] MEDS: Furosemide 10 MG/ML Liquid 40 MG SL/PO (14:32)
[2023-04-11] MEDS: Atropine Sulfate 1% 2 ml Bottle 4 DRP SL (14:32)
--- NOTE | 2023-04-11 18:35 | NURSING ---
report called to [facility] to LIBAN Perez
--- NOTE | 2023-04-11 19:05 | NURSING ---
Family noted patient more shallow breathing, this RN attempted blood pressure on left and right arm twice, unable to obtain. auscultated breath sounds and heart rhythm irregular, heart rate 88, respiratory rate 18, temp 96.7, unable to obtain pulse ox on 2L NC. Spoke with [facility], cancelling D/C to hospice, patient will remain here for comfort care.
[2023-04-12] MEDS: Glycerin/Hypromellose/PEG400 15 ml Bottle 2 DRP EACH EYE ×2 (00:40→03:52)
[2023-04-12 03:30] VITALS: RESP 30
--- NOTE | 2023-04-12 11:51 | PCM.DEATH ---
Preliminary Cause of Preliminary Cause of Preliminary Cause of : Acute bilateral pulmonary embolism Acute decompensated congestive heart failure with reduced ejection fraction Date of Admission: 04/09/23 Date of : 04/12/23 Principle Diagnosis Problem List: Active and Suspected Problems (Updated 04/10/23 @ 13:[address] Josiane Sparrow MD) Pulmonary hypertension (Acute) Tricuspid valve regurgitation (Acute) Mitral valve regurgitation (Acute) Pulmonary embolism (Acute) Congestive heart failure (Acute) Cardiomyopathy (Acute) Acute decompensated heart failure (Acute) Hypertensive urgency (Acute) Atrial fibrillation with RVR (Acute) Acute encephalopathy (Acute) Peripheral edema (Acute) Peripheral arterial disease (Acute) Peripheral vascular disease (Acute) Cellulitis of both lower extremities (Acute) Ulcer of extremity due to chronic venous insufficiency (Acute) Hospital Course Patient is a 77-year-old gentleman who was admitted through the emergency department with bilateral lower extremity swelling as well as progressive generalized weakness. Patient was found to be in A-fib with RVR as well as acute congestive heart failure. Subsequent evaluation demonstrated bilateral pulmonary embolism as well as DVT prophylaxis. Patient was found to have acute cor pulmonale with RVSP of 55 mmHg. Patient clinical condition continued to worsen despite aggressive treatment. Had a discussion with patient's family regarding the prognosis. Patient family elected not to pursue any aggressive measures. All treatment subsequently discontinued initiated palliative care symptom management plan was for patient to have been transferred to the inpatient hospice facility however given his continued decline decision was made to keep patient in the hospital. On 04/12/2023 at 0517 patient was found with heart tones and spontaneous breathing. Patient was pronounced . Visit Charges Inpatient E&M: 26474 Disch Hosp
== END 2023-04-12 05:17 | DRG 175 ==
LOC: ED 04-09 11:31 → PCU 04-09 19:52
PROVIDERS: Emergency Medicine; Admitting Provider Internal Medicine; Emergency Provider Emergency Medicine; PCP Family Medicine; Visit Provider Internal Medicine
DX: I26.09 Other pulmonary embolism with acute cor pulmonale (principal); I50.23 Acute on chronic systolic (congestive) heart failure; G93.40 Encephalopathy, unspecified; I42.9 Cardiomyopathy, unspecified; E87.1 Hypo-osmolality and hyponatremia; L03.115 Cellulitis of right lower limb; L03.116 Cellulitis of left lower limb; I82.413 Acute embolism and thrombosis of femoral vein, bilateral; I82.443 Acute embolism and thrombosis of tibial vein, bilateral; I82.452 Acute embolism and thrombosis of left peroneal vein; I82.433 Acute embolism and thrombosis of popliteal vein, bilateral; I16.1 Hypertensive emergency; I82.811 Embolism and thrombosis of superficial veins of right lower extremity; E86.1 Hypovolemia; I48.0 Paroxysmal atrial fibrillation; I11.0 Hypertensive heart disease with heart failure; I73.9 Peripheral vascular disease, unspecified; I82.463 Acute embolism and thrombosis of calf muscular vein, bilateral; I08.1 Rheumatic disorders of both mitral and tricuspid valves; I87.2 Venous insufficiency (chronic) (peripheral); E87.5 Hyperkalemia; E16.2 Hypoglycemia, unspecified; B96.5 Pseudomonas (aeruginosa) (mallei) (pseudomallei) as the cause of diseases classified elsewhere; B95.61 Methicillin susceptible Staphylococcus aureus infection as the cause of diseases classified elsewhere; R82.998 Other abnormal findings in urine; Z66 Do not resuscitate; Z91.148 Patient's other noncompliance with medication regimen for other reason; Z79.01 Long term (current) use of anticoagulants; Z79.82 Long term (current) use of aspirin; Z79.899 Other long term (current) drug therapy
CPT/HCPCS: 36415; 70450; 71045; 71275; 73590; 73630; 80048; 80053; 80061; 81001; 82962; 83605; 83735; 83880; 84100; 84145; 84443; 84484; 85025; 85379; 85652; 86140; 87040; 87070; 87077; 87184; 87186; 87205; 87631; 87640; 92610; 93005; 93306; 93925; 93970; 97162; 97166; 99284; J7050; J7120; Q9967; A4216; J1940